=== PATIENT | female | born 1980 | race Caucasian/White ===

== ENCOUNTER 2023-04-24 19:37 | Outpatient (REF) | payer OTHER, SELFPAY ==
[2023-04-29 18:09] LABS: Age Gdln ACOG Testing Note (.); HPV Aptima Negative (Negative); IGP, Aptima HPV, rfx 16/18,45 Note (.)
== END 2023-04-24 19:38 | disposition home or self-care (01) ==
LOC: LAB 19:37
PROVIDERS: PCP Family Medicine; Visit Provider Physician Assistant
DX: Z01.419 Encounter for gynecological examination (general) (routine) without abnormal findings (principal)
CPT/HCPCS: 87624; G0145

== ENCOUNTER 2023-05-07 10:26 | Outpatient (OUT) | payer OTHER, SELFPAY ==
--- NOTE | 2023-05-07 10:29 | MM_ITS ---
Patient: KARINA GOODEN Exam Date: 05/07/2023 : 1980 Gender:F Ordering : TRAIVS Gan . Admission #: [id number] Family : DR Gene Narvaez . Order #: [id number] CLICK HERE TO VIEW EXAM RADIOLOGY REPORT PROCEDURE: MM TOMOSYNTHESIS SCREENING BI COMPARISON: None. INDICATIONS: Screening Calculator Name NCI Breast Cancer Risk Assessment Tool 5 Year Breast Cancer Risk 0.50% Lifetime Breast Cancer Risk 9.00% Personal Breast Cancer No Personal Ovarian Cancer No Treatments None Family Cancers None LOCATION: [facility] BREAST COMPOSITION: Extremely dense, which lowers the sensitivity of mammography. FINDINGS: DIAGNOSTIC CATEGORY 0--INCOMPLETE: NEED ADDITIONAL IMAGING EVALUATION. RIGHT BREAST: 2 cm asymmetry within the posterior upper-outer quadrant. 1.5 cm mass versus cyst within posterior lower-inner quadrant. Spot magnification views and ultrasound evaluation recommended. LEFT BREAST: No significant suspicious finding. RECOMMENDATIONS: ADDITIONAL MAMMOGRAPHIC VIEWS REQUIRED: RIGHT BREAST - RIGHT CRANIOCAUDAL SPOT MAGNIFICATION VIEW - RIGHT OBLIQUE SPOT MAGNIFICATION VIEW - ULTRASOUND: RIGHT BREAST PLEASE NOTE: A NORMAL MAMMOGRAM DOES NOT EXCLUDE THE POSSIBILITY OF BREAST CANCER. A CLINICALLY SUSPICIOUS PALPABLE LUMP SHOULD BE BIOPSIED. Dictated by: Ridge Watson M.D. on 05/08/2023 at 13:36 Approved by: Ridge Watson M.D. on 05/08/2023 at 13:42
== END 2023-05-07 10:27 | disposition home or self-care (01) ==
LOC: MAMMO 10:26
PROVIDERS: PCP Family Medicine; Visit Provider Physician Assistant
DX: Z12.31 Encounter for screening mammogram for malignant neoplasm of breast (principal); N64.89 Other specified disorders of breast
CPT/HCPCS: 77063; 77067

== ENCOUNTER 2023-05-24 13:00 | Outpatient (OUT) | payer OTHER, SELFPAY ==
--- NOTE | 2023-05-24 | MM_ITS ---
Patient Name: KARINA GOODEN MR#: [id number] : 1980 Exam Date: 05/24/2023 Ordering Doctor: TRAVIS Gan . RADIOLOGY REPORT PROCEDURE: MM TOMOSYNTHESIS DIAGNOSTIC RT, 05/24/2023, 13:05 US BREAST RT LIMITED, 05/24/2023, 13:36 COMPARISON: MM TOMOSYNTHESIS SCREENING BI, 05/07/2023. INDICATIONS: mass of right breast, unspecified quadrant N63.10 Calculator Name NCI Breast Cancer Risk Assessment Tool 5 Year Breast Cancer Risk 0.50% Lifetime Breast Cancer Risk 9.00% Personal Breast Cancer No Personal Ovarian Cancer No Treatments None Family Cancers None LOCATION: [facility] BREAST COMPOSITION: Extremely dense, which lowers the sensitivity of mammography. FINDINGS: DIAGNOSTIC CATEGORY 4--SUSPICIOUS FOR MALIGNANCY. FINDING DOES NOT EXHIBIT CLASSIC FINDINGS OF BREAST CANCER: RIGHT BREAST: Spot magnification views demonstrate what appears to be dense fibroglandular tissue within the posterior upper-outer quadrant and what appears to be a partially circumscribed mass or cyst within posterior lower-inner quadrant. Ultrasound evaluation demonstrates upper-outer quadrant dense fibroglandular tissue and a 9 x 7 x 2 mm complex cyst versus mixed cystic and solid mass at the 4 o'clock position 4.8 cm from the nipple. Ultrasound-guided biopsy of the 4 o'clock lesion is recommended. RECOMMENDATIONS: ULTRASOUND-GUIDED CORE BIOPSY: RIGHT BREAST PLEASE NOTE: A NORMAL MAMMOGRAM DOES NOT EXCLUDE THE POSSIBILITY OF BREAST CANCER. A CLINICALLY SUSPICIOUS PALPABLE LUMP SHOULD BE BIOPSIED. Dictated by: Ridge Watson M.D. on 05/24/2023 at 14:49 Approved by: Ridge Watson M.D. on 05/24/2023 at 14:54
== END 2023-05-24 13:01 | disposition home or self-care (01) ==
LOC: MAMMO 13:00
PROVIDERS: PCP Family Medicine; Visit Provider Physician Assistant
DX: N63.14 Unspecified lump in the right breast, lower inner quadrant (principal); N63.11 Unspecified lump in the right breast, upper outer quadrant
CPT/HCPCS: 76642; 77065; G0279

== ENCOUNTER 2023-06-04 10:54 | Day surgery (SDC) | payer OTHER, SELFPAY ==
--- NOTE | 2023-06-04 10:57 | US_ITS ---
[address] [address] Patient Name: KARINA GOODEN MRN: [id number] date: 1980 Sex: F Assigned Patient Location: US Current Patient Location: US Accession/Order Number: [id number] Exam Date: 06/04/2023 11:25 Report Date: 06/04/2023 12:06 At the request of: JEREMY VANG Procedure: US breast vac bx w/ clip RT EXAM: US breast vac bx w/ clip RT HISTORY: Right Breast Mass COMPARISON: Ultrasound breast right Limited 05/24/2023 TECHNIQUE: After obtaining informed consent, ultrasound-guided biopsy was performed in the usual sterile manner. The location of the biopsy was then marked as indicated below. FINDINGS: Specimen #, Location: 3 core samples; right breast 4:00 hypoechoic mass versus complex cyst. Biopsy Needle: 13 gauge vacuum core biopsy needle. Marker(s): A single metallic marker was placed in the appropriate targeted location. Medication: Buffered 1% Lidocaine with epinephrine administered locally. Complications: None. Pathology: Pending. US/US breast vac bx w/ clip RT IMPRESSION: 1. Uneventful ultrasound-guided breast biopsy. 2. Pathology results are pending. An addendum to this report will be provided after pathology results are available. Electronically authenticated by: STEPHANI WASSERMAN Date: 06/04/2023 12:06
[2023-06-04 11:05] VITALS: BP 128/85; PULSE 75; O2SAT 100
--- NOTE | 2023-06-04 11:22 | MM_ITS ---
Patient Name: KARINA GOODEN MR#: [id number] : 1980 Exam Date: 06/04/2023 Ordering Doctor: DR Mario Julio . This report includes an Addendum and supersedes previous reports for this exam. This report includes an Addendum and supersedes previous reports for this exam. RADIOLOGY REPORT PROCEDURE: MM POST BIOPSY RT COMPARISON: MM TOMOSYNTHESIS DIAGNOSTIC RT, 05/24/2023. MM TOMOSYNTHESIS SCREENING BI, 05/07/2023. INDICATIONS: Breast Mass BREAST COMPOSITION: Extremely dense, which lowers the sensitivity of mammography. FINDINGS: BIOPSY MARKER: A metallic marker has been placed in the targeted location within the posterior lower inner quadrant of the right breast. BREAST FINDINGS: Expected post biopsy findings. RECOMMENDATIONS: Dictated by: Ridge Watson M.D. on 06/04/2023 at 13:35 Approved by: Ridge Watson M.D. on 06/04/2023 at 13:49 ADDENDUM: Final pathologic diagnosis: Breast parenchyma with fibroadenomatoid change. Negative for malignancy FINDINGS: DIAGNOSTIC CATEGORY 2--BENIGN FINDING: RECOMMENDATIONS: ROUTINE MAMMOGRAM AND CLINICAL EVALUATION IN 12 MONTHS. June 11, 2023 findings were faxed to the office of Dr. Julio and verified. Dictated by: Ridge Watson M.D. on 06/12/2023 at 10:08 Approved by: Ridge Watson M.D. on 06/12/2023 at 10:12 ADDENDUM: FINDINGS: DIAGNOSTIC CATEGORY 3--PROBABLY BENIGN FINDING. THE FOLLOWING FINDING(S) HAS A HIGH PROBABILITY OF A BENIGN ETIOLOGY: RECOMMENDATIONS: SHORT TERM FOLLOW-UP DIAGNOSTIC MAMMOGRAM RIGHT BREAST IN 6 MONTHS. Dictated by: Ridge Watson M.D. on 06/18/2023 at 15:13 Approved by: Ridge Watson M.D. on 06/18/2023 at 15:14
--- NOTE | 2023-06-04 12:33 | SUR.PREOP ---
05/28/23 Pt instructed on procedure, date, time. Pt instructed to hold ASA BC powder for 5 days prior to the biopsy.
== END 2023-06-04 12:10 | disposition home or self-care (01) ==
LOC: US 10:54
PROVIDERS: Radiology Diagnostic Radiology; PCP Family Medicine; Visit Provider Obstetrics & Gynecology
DX: D24.1 Benign neoplasm of right breast (principal)
CPT/HCPCS: 19083; 77065; 88305

== ENCOUNTER 2024-07-27 11:39 | Outpatient (OUT) | payer OTHER, SELFPAY ==
[2024-07-27 11:59] LABS: Basophils Absolute Auto 0.1 10^3/uL (0.0-0.1); Basophils Percent Auto 0.6 % (0.2-2.0); Eosinophils Absolute Auto 0.2 10^3/uL (0.0-0.7); Eosinophils Percent Auto 2.6 % (0.9-7.0); Hematocrit 40.6 % (36.0-48.0); Hemoglobin 13.6 g/dL (12.0-16.0); Immature Granulocytes Abs Auto 0.02 10^3/uL (0.00-0.03); Immature Granulocytes Pct Auto 0.2 % (0.0-0.5); Mean Corpuscular HGB Conc 33.5 g/dL (29.9-35.2); Mean Corpuscular Hemoglobin 29.7 pg (26.7-34.0); Mean Corpuscular Volume 88.6 fL (81.0-99.0); Mean Platelet Volume 9.1 fL (9.5-13.5); Monocytes Absolute Auto 0.5 10^3/uL (0.3-0.8); Monocytes Percent Auto 5.8 % (1.7-12.0); Neutrophils Absolute Auto 4.8 10^3/uL (1.4-6.5); Neutrophils Percent Auto 55.8 % (43.0-75.0); Platelet Count 263 10^3/uL (150-450); Red Blood Count 4.58 10^6/uL (4.20-5.40); Red Cell Distribution Width 12.1 % (11.0-15.0); White Blood Count 8.6 10^3/uL (4.0-11.0)
--- OUTSIDE RECORDS SUMMARY | 2024-07-27 12:03 | XMS_ITS | CCD ---
Author Organization [facility] Care Team Providers Care Inspection Manager Name Role Phone Kenyatta Narvaez Primary Care Physician [phone] Modesta Stewart Unavailable Unavailable Fvaian DEJESUS Attending Unavailable Solange PROVIDERKenyatta Referring Unavailprabha trevino Unavailable Primary Care Provider UnavailRidge Royal MD Unavailable Beth Marsh RN Unavailable [phone] MISC, DR BUSBY Consulting Unavailable MISC, DR BUSBY Attending Unavailable SOLANGE, DR YOU Primary Care Unavailable MISC, DR BUSBY Admitting Unavailable SOLANGE, DR YOU Admitting Unavailable SOLANGE, DR YOU Primary Care Unavailable SOLANGE, DR YOU Consulting Unavailable SOLANGE, DR YOU Attending Unavailable Corinna Guevara MD Unavailable Ridge Hobbs MD Unavailable Salma DSOUZA, Beth Fleming Unavailable [phone] Corinna Guevara MD Unavailable PROVIDER, UNKNOWN Admitting Unavailable CORINNA GUEVARA Referring Unavailable PROVIDER, UNKNOWN Attending Unavailable PROVIDER, UNKNOWN Attending Unavailable PROVIDER, UNKNOWN Admitting Unavailable RIDGE HOBBS Referring Unavailable PROVIDER, UNKNOWN Admitting Unavailable PROVIDER, UNKNOWN Attending Unavailable PROVIDER, UNKNOWN Admitting Unavailable PROVIDER, UNKNOWN Attending Unavailable PROVIDER, UNKNOWN Admitting Unavailable PROVIDER, UNKNOWN Attending Unavailable PROVIDER, UNKNOWN Attending Unavailable PATIENT, SELF Referring Unavailable PROVIDER, UNKNOWN Admitting Unavailable Salma DSOUZA, Beth Fleming Unavailable Allergies Allergy Classification Reported Allergen(s) Allergy Type Date of Onset Reaction(s) Facility (1 source) No Known Medication Allergies; Translations: [No Known Medication Allergies] Propensity to adverse reactions (disorder) [facility] Repository Medications Current Medications Medication Drug Class(es) Dates Sig (Normalized) Sig (Original) ARIPiprazole 10 mg oral tablet (3 sources) Atypical Antipsychotic Start: 07-23-2022 take 0.5 tablet by mouth once daily, then take 1 tablet by mouth once daily ARIPiprazole (ABILIFY) 10 MG tablet TAKE 1/2 TABLET BY MOUTH DAILY FOR 1 WEEK THEN INCREASE TO 1 TABLET ONCE A DAY 0 07/23/2022 Active buprenorphine 8 mg sublingual tablet (1 source) Partial Opioid Agonist Start: 03-16-2020 take 1 tablet under the tongue twice daily buprenorphine 8 mg sublingual tablet 8 mg = 1 tab(s), SubLingual, BID, Refills(s) 0 Start Date: 03/16/20 Status: Ordered buprenorphine 8 mg / naloxone 2 mg sublingual film (20 sources) Partial Opioid Agonist, Opioid Antagonist Start: 03-27-2022 buprenorphine-nalo xone (SUBOXONE) 8-2 MG FILM SL film DISSOLVE 1 FILM IN MOUTH IN THE MORNING AND 1/2 FILM IN THE EVENING 0 03/27/2022 Active Nexplanon (1 source) Progestin Start: 03-16-2020 Nexplanon See Instructions, as directed, Refills(s) 0 Start Date: 03/16/20 Status: Ordered lamoTRIgine 100 mg oral tablet (15 sources) Mood Stabilizer, Anti-epileptic Agent Start: 05-26-2022 take 2 tablets by mouth once daily lamoTRIgine (LAMICTAL) 100 MG tablet Take 200 mg by mouth daily. 0 05/26/2022 Active Start: 04-03-2022 take 1 tablet by mica th once daily lamotrigine 100 mg Tab 100 mg = 1 tab(s), Oral, Daily, Refills(s) 0 Start Date: 04/03/22 Status: Ordered 1 ml medroxyPROGESTERone acetate 150 mg/ml injection (15 sources) Progestin Start: 06-14-2015 medroxyPROGESTERone (DEPO-PROVERA) 150 MG/ML injection mupirocin 0.02 mg/mg topical ointment (15 sources) RNA Synthetase Inhibitor Antibacterial Start: 03-21-2022 mupirocin (BACTROBAN) 2 % ointment APPLY TO ANTERIOR NARES TWICE A DAY 0 03/21/2022 Active OLANZapine 10 mg oral tablet (15 sources) Atypical Antipsychotic Start: 05-22-2022 take 1 tablet by mouth once daily OLANZapine (ZyPREXA) 10 MG tablet TAKE 1 TABLET BY MOUTH EVERY DAY FOR 30 DAYS 0 05/22/2022 Active Start: 04-03-2022 take 1 tablet by mica th once daily olanzapine 5 mg Tab 5 mg = 1 tab(s), Oral, Daily, Refills(s) 0 Start Date: 04/03/22 Status: Ordered QUEtiapine 100 mg oral tablet (15 sources) Atypical Antipsychotic Start: 05-16-2015 take 1 tablet by mouth at bedtime quetiapine (SEROQUEL) 100 MG tablet Take 100 mg by mouth at bedtime. 6 05/16/2015 Active Problems Active Problems Problem Classification Problem Date Documented Date Episodic/Chronic Adjustment disorders (15 sources) Adjustment disorder with mixed disturbance of emotions AND conduct; Translations: [Adjustment disorder with mixed disturbance of emotions and conduct] Onset: 04-18-2022 04-18-2022 Chronic Alcohol-related disorders (1 source) History of alcohol abuse 03-16-2020 Chronic Anxiety disorders (20 sources) Obsessive-compulsive disorder; Translations: [Panic attack] Onset: 04-18-2022 03-16-2020 Chronic Mood disorders (20 sources) Depressive disorder; Translations: [Bipolar affective disorder, currently manic, mild] Onset: 08-09-2021 03-16-2020 Chronic Other ear and sense organ disorders (15 sources) Hearing loss of right ear; Translations: [Unspecified hearing loss, right ear] Onset: 12-18-2016 04-18-2022 Chronic Other ear and sense organ disorders (3 sources) Conductive hearing loss, unilateral, right ear, with unrestricted hearing on the contralateral side; Translations: [Conductive hearing loss, unilateral] Onset: 04-18-2022 Chronic Residual codes; unclassified (1 source) Tobacco user; Translations: [Tobacco use] Onset: 04-03-2022 Episodic Residual codes; unclassified (1 source) Body mass index 20-24 - normal; Translations: [Body mass index (BMI) 22.0-22.9, adult] Episodic Screening and history of mental health and substance abuse codes (1 source) Tobacco use and exposure - finding 04-03-2022 Chronic Substance-related disorders (20 sources) Buprenorphine dependence; Translations: [History of drug abuse] Onset: 04-18-2022 04-05-2020 Chronic Unclassified (1 source) Body mass index 20-24 - normal 04-03-2022 Past or Other Problems Problem Classification Problem Date Documented Date Episodic/Chronic Abdominal hernia (17 sources) Umbilical hernia; Translations: [Umbilical hernia without obstruction or gangrene] Onset: 04-03-2022 Episodic Allergic reactions (16 sources) Eczema; Translations: [Dermatitis, unspecified] Onset: 04-18-2022 03-01-2022 Episodic Deficiency and other anemia (16 sources) Anemia; Translations: [Anemia, unspecified] Onset: 04-18-2022 03-16-2020 Episodic Diseases of mouth; excluding dental (20 sources) Acquired velopharyngeal insufficiency; Translations: [Other lesions of oral mucosa] Onset: 10-24-2015 Episodic Other aftercare (1 source) Other custodial (current) drug therapy; Translations: [OTH SNF CURRENT DRUG THERAPY] Onset: 08-12-2021 Episodic Other infections; including parasitic (16 sources) History of hepatitis C; Translations: [Personal history of other infectious and parasitic diseases] Onset: 04-18-2022 03-16-2020 Episodic Other skin disorders (16 sources) Acne vulgaris; Translations: [Acne vulgaris] Onset: 04-18-2022 03-01-2022 Episodic Other upper respiratory disease (15 sources) Acquired nasal septal defect; Translations: [Other specified disorders of nose and nasal sinuses] Onset: 10-24-2015 Episodic Other upper respiratory disease (15 sources) Deviated nasal septum; Translations: [Deviated nasal septum] Onset: 10-24-2015 10-24-2015 Episodic Other upper respiratory disease (15 sources) Hoarse; Translations: [Dysphonia] Onset: 09-22-2018 04-18-2022 Episodic Other upper respiratory disease (15 sources) Pain in throat; Translations: [Pain in throat] Onset: 09-22-2018 04-18-2022 Episodic Other upper respiratory disease (1 source) Other specified disorders of nose and nasal sinuses; Translations: [Other specified disorders of nose and nasal sinuses] Onset: 10-24-2015 Episodic Other upper respiratory disease (1 source) Disorder of nasal septum; Translations: [Other specified disorders of nose and nasal sinuses] Onset: 10-24-2015 10-24-2015 Episodic Other upper respiratory infections (15 sources) Sinusitis; Translations: [Acute sinusitis, unspecified] Onset: 12-18-2016 04-18-2022 Episodic Otitis media and related conditions (20 sources) Dysfunction of bilateral eustachian tubes; Translations: [Other specified disorders of Eustachian tube, bilateral] Onset: 11-15-2016 Episodic Residual codes; unclassified (16 sources) Insomnia; Translations: [Insomnia, unspecified] Onset: 04-18-2022 03-01-2022 Episodic Residual codes; unclassified (15 sources) Tobacco use and exposure - finding; Translations: [Tobacco use] Onset: 04-18-2022 04-18-2022 Episodic Results Test Name Value Interpretation Reference Range Facility Telephone Encounteron 2022 [facility] Authentication Interface Message Text SW met with patient and her boyfriend in [place] on 10/23/22. Patient lives with her mom and dad and her children (ages 18, 13, and 2 years) in [facility]. Patient works for [employer]. Patient receives food stamps and is on [employer]. Patient is on subutex custodial maintenance. Patient identifies her parents and boyfriend as sources of support. Patient denies any issues at this time. SW contact information provided and available as needed. SANDRINE Haque Pager [phone] Normal [facility]23-[address] [facility] Progress Noteson 10-23-2022 [facility] Authentication Interface Message Text [facility]: Duration: 15 mins Identification was verified by mother via confirming the patient's name and date of . History: Medical:h/o nasal drug use, septal perforation, tympanoplasty, hearing loss, VPI, Lefort-I advancement Speech and other interventions: none in history Patient Report: Pt novel to this clinic, referred by Dr. Hobbs for VPI. Pt reports that her speech and swallowing her normal as a child. She developed hypernasal speech after she started having difficulties with her nasal tissues following drug use and after her Lefort advancement. She reports her talks through her nose, and has nasal regurgitation with foods and liquids about 20% of meals. Speech observation: Pt unable to puff cheeks and move air side to side. Moderate-severe nasal emission with sustained /s, f/. Nasal emission noted on plosives. Hypernasality noted in all speech. Nasoendoscopy performed after application of topical anesthetic. Pt educated about procedure and consents. Septal perforation is visible and quite large. Thick secretions noted throughout. Velum appears too short and stiff. Pt does not get TONGUE AND GROOVE MACHINE OPERATOR closure with any speech, and gets significant bubbling with sustained /s/. TONGUE AND GROOVE MACHINE OPERATOR closure is incomplete, but there is some lateral wall constriction with attempted closure. Less mobility and volume of velum on left than right. Impressions: Pt presents with mild-moderate speech sound disorder characterized by nasal emission with plosives and continuants, and hypernasal vocal quality with all speech. She also presents with mild dysphagia due to nasal regurgitation. Plan: Per CFD team discussion, finish course of antibiotics, repeat CT sinus to investigate sinus disease and whether or not pt will tolerate pharyngeal flap from a breathing/sinus perspective. Follow up with ENT and audiology for PE tube placement. Recommend speech evaluation and brief course of treatment after pharyngeal flap surgery. SARA Carranza, TRAY, CCC-NURSE [employer] Speech-Language Pathologist Normal [employer] [facility] Authentication Interface Message Text Nicolette Salgado [id number] 1980 Chief Complaint: speech nasality History of Present Illness: A 42 year old White female is referred by Dr. Hobbs to the Plastic Surgery Clinic for evaluation of nasal speech, patient has history of remote drug use, patient also has septal perforation which using plug for it, she had Lefort-I advancement surgery PMH: Past Medical History: Diagnosis Date Hep C w/o coma, chronic (HCC) 2008 PSH: Past Surgical History: Procedure Laterality Date ear tubes 2016 ELBOW LEFT 2011 orthognathic surgery 1997 [place], [place] Lefort I advancement FH: No family history on file. Medications: Current Outpatient Medications Medication Sig Dispense Refill lamoTRIgine (LAMICTAL) 100 MG tablet Take 200 mg by mouth daily. OLANZapine (ZyPREXA) 10 MG tablet TAKE 1 TABLET BY MOUTH EVERY DAY FOR 30 DAYS buprenorphine-naloxone (SUBOXONE) 8-2 MG FILM SL film DISSOLVE 1 FILM IN MOUTH IN THE MORNING AND 1/2 FILM IN THE EVENING buprenorphine-naloxone (Suboxone) 8-2 MG FILM SL film one whole in AM, 1 half in PM mupirocin (BACTROBAN) 2 % ointment APPLY TO ANTERIOR NARES TWICE A DAY quetiapine (SEROQUEL) 100 MG tablet Take 100 mg by mouth at bedtime. 6 medroxyPROGESTERone (DEPO-PROVERA) 150 MG/ML injection 0 No current facility-administered medications for this visit. 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] Acne vulgaris [L70.0] Buprenorphine dependence (HCC) [F11.20] Depressive disorder [F32.A] Dysfunction of both eustachian tubes [H69.83] Eczema [L30.9] Hearing loss of right ear [H91.91] History of hepatitis C virus infection [Z86.19] Hoarseness [R49.0] Insomnia [G47.00] Panic attack [F41.0] Obsessive-compulsive disorder [F42.9] Perforation of right tympanic membrane [H72.91] Subacute sinusitis [J01.90] Throat pain [R07.0] Umbilical hernia [K42.9] Social History Socioeconomic History Marital status: Single Tobacco Use Smoking status: Every Day Packs/day: 0.50 Years: 15.00 Pack years: 7.50 Types: Cigarettes Smokeless tobacco: Current Substance and Sexual Activity Alcohol use: No Alcohol/week: 0.0 standard drinks Drug use: Yes Comment: opiods, heroin (last time 21 months) Sexual activity: Yes Partners: Male control/protection: Injection Review Of Systems Skin: negative Eyes: negative review of symptoms Ears/Nose/Throat: negative Respiratory: negative symptoms (no cough, hemoptysis, SOB, FRANCOIS, PND, wheezing) Cardiovascular: negative symptoms (No CP/Pressure/Tightness, palpitations, orthopnea, PND, SOB, FRANCOIS, edema, SANCHEZ or vision change) Gastrointestinal: negative symptoms (no abdominal pain, anorexia, n/v, indigestion, constipation, or diarrhea) Genitourinary: no urinary symptoms Musculoskeletal: negative (no arthritic pain, no joint swelling, no muscle weakness) Neurologic: negative symptoms (no syncope, seizures, weakness, gait problems, numbness, burning pain, tremors, or memory loss) Psychiatric: negative (no sleep disturbance, anxiety, memory loss, disorientation, inattention, feelings of depression) Hematologic/Lymphatic/ Immunologic: negative (no anemia, bleeding, bruising) Endocrine: negative review of symptoms PHYSICAL EXAMINATION: There were no vitals taken for this visit. General appearance: alert Skin: negative Nose: Septal perforation, Plug in place Throat: Postnasal drainage, short palate Assessment: VPI, short palate CT scan of sinuses sows chronic sinusitis, septal perforation Plan: needs sinusitis treatment, possible pharyngeal flap, Will do nasal endoscopy today This visit lasted for more than 30 minutes and greater than 50% of the visit was involved in the discussion of the options for treatment. Corinna Guevara MD Normal [employer] [facility] Authentication Interface Message Text HISTORY Name: Nicolette Salgado : 1980 Referred by: [facility] Presents today for: audiologic evaluation Patient reports: Perceived change in hearing sensitivity at the right ear Otorrhea at the left ear Tinnitus at the right ear Dizziness History of otologic surgery at both ears Patient denies: Otalgia History of noise exposure Patient reports she is followed by an outside ENT in [place]. She has a history of multiple sets of PE tubes since she was in her 20s. She has also reports a history of right tympanoplasty. AUDIOLOGIC PROCEDURES/RESULTS - Otoscopy: clear external auditory canal, bilaterally - Pure Tone Audiometry: mild to moderate conductive hearing loss at the right ear and normal hearing with the exception of a mild hearing loss at 250 and 4000 Hz at the left ear - Word Recognition Ability: excellent when assessed at an enhanced level at the right ear and a conversational level at the left ear - Tympanometry: immobile tympanic membrane with normal ear canal volume at the right ear and a large ear canal volume with a flat tracing at the left ear IMPRESSION The patient has a significant conductive hearing loss with abnormal middle ear function perhaps middle ear effusion at the right ear and essentially normal hearing with probable tympanic membrane perforation at the left ear. RECOMMENDATIONS The above was explained to the patient. The following was recommended: 1. Follow up with ENT 2. Return to Audiology as recommended by ENT, or if a change is perceived. Corrie Mederos M.A., [facility] Person Degree of hearing sensitivity dB range Porras: Normal: 0-25 dB Mild: 26-40 dB Moderate: 41-55 dB Moderately Severe: 56-70 dB Severe: 71-90 dB Profound: 91+ dB Word Recognition Porras: Excellent: 100 -90% Good: 88 -78% Fair: 66 -76% Poor: 54 -64% Very Poor: < 52% Normal [employer] [facility] Authentication Interface Message Text [facility] Nicolette Salgado, a 42 year old female, is seen today for evaluation of her craniofacial anomalies. She is referred by Dr. 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 Here today with her . Patient Active Problem List Diagnosis Date Noted H/O cocaine abuse ([facility]) 04/18/2022 Tobacco use 04/18/2022 Bipolar affective disorder, currently manic, mild ([facility]) 04/18/2022 Anemia 04/18/2022 Adjustment disorder with mixed disturbance of emotions and conduct 04/18/2022 Acne vulgaris 04/18/2022 Buprenorphine dependence ([facility]) 04/18/2022 Depressive disorder 04/18/2022 Eczema 04/18/2022 History of hepatitis C virus infection 04/18/2022 Insomnia 04/18/2022 Panic attack 04/18/2022 Obsessive-compulsive disorder 04/18/2022 Umbilical hernia 04/18/2022 Perforation of right tympanic membrane 02/08/2022 Hoarseness 09/22/2018 Throat pain 09/22/2018 Hearing loss of right ear 12/18/2016 Subacute sinusitis 12/18/2016 Dysfunction of both eustachian tubes 11/15/2016 Velopharyngeal insufficiency, acquired 10/24/2015 Deviated nasal septum 10/24/2015 Nasal septal defect 10/24/[address] Kenyatta Narvaez in [facility]. Nutrition consultation is not necessary. She has a large nasal septal defect with a button for closeure, but states she continues ot have recurrent sinus and ear issues. Current Outpatient Medications Medication Sig Dispense Refill lamoTRIgine (LAMICTAL) 100 MG tablet Take 200 mg by mouth daily. OLANZapine (ZyPREXA) 10 MG tablet TAKE 1 TABLET BY MOUTH EVERY DAY FOR 30 DAYS buprenorphine-naloxone (SUBOXONE) 8-2 MG FILM SL film DISSOLVE 1 FILM IN MOUTH IN THE MORNING AND 1/2 FILM IN THE EVENING buprenorphine-naloxone (Suboxone) 8-2 MG FILM SL film one whole in AM, 1 half in PM mupirocin (BACTROBAN) 2 % ointment APPLY TO ANTERIOR NARES TWICE A DAY quetiapine (SEROQUEL) 100 MG tablet Take 100 mg by mouth at bedtime. 6 medroxyPROGESTERone (DEPO-PROVERA) 150 MG/ML injection 0 No current facility-administered medications for this visit. Past Medical History: Diagnosis Date Hep C w/o coma, chronic (HCC) 2008 Review of patient's past surgical history indicates: orthognathic surgery (1997) [place] ELBOW LEFT (2011) ear tubes (2015) No family history on file. Review of Systems: The following systems were reviewed and the pertinent positive findings are noted: Constitutional, Eyes, ENT, Cardiovascular, Respiratory, GI, , Musculoskeletal, Neurologic, Skin, Endocrine, Hematologic/lymphatic, Allergic/Immunologic, and Psychiatric. (-) Heart or lung issues, states she is now in good health and she has been clean from drug use and active with her subutex program. Physical Examination: Constitutional: Active. No distress. Cooperative. Non-toxic. Well hydrated and well appearing. Alert, interactive at baseline. Head: Normocephalic, atraumatic. No masses, lesions, or tenderness. Eyes: PERRLA, EOMI, conjunctivae are normal. ENT: Deferred, seen by ENT. Voice quality is significantly affected by VPI Neck: Neck is supple. No cervical lymphadenopathy or thyromegaly. Cardiovascular: Normal rate. Regular rhythm. No murmurs. Well perfused. Pulmonary/Chest: No accessory muscle use or increased labor of breathing. No respiratory distress. Breath sounds are clear bilaterally. No stridor, wheezes, rales, or rhonchi. Abdominal: Soft and non-distended. Bowel sounds are normal. Musculoskeletal: Extremities without deformities and bones intact. Extremity movement at baseline. Skin: Skin is warm and dry. No bruising. No rashes. Neurological: Alert and interactive x3 at baseline Moves all extremities at baseline. Age appropriate behavior at baseline. Summary: ICD-10-CM 1. Velopharyngeal insufficiency, acquired K13.79 2. Conductive hearing loss of right ear, unspecified hearing status on contralateral side H90.11 3. Dysfunction of both eustachian tubes H69.83 Assessment, Findings and Recommendations: Team meeting held following clinic with Plastic Surgery, ENT, Speech and Language Pathology, Audiology, Neurodevelopmental Peds, Social Work, Genetics, Dentistry, Orthodontics and Care Coordination Plastics: CT scan of sinuses sows chronic sinusitis, septal perforation. Needs sinusitis treatment, possible pharyngeal flap, Nasal endoscopy was performed today. Palate is short. Will order a CAT scan and follow up with her. Speech and Language Therapy: She gets food and drink up her nose 20% of meals. Did the scope. Has some wall lateral constriction. The palate moved a little but was stiff. If a repair is done, then a referral for Telehealth Speech will be put in. Audiology: Patient reports she is followed by an outside ENT. She has a history of PE tubes since she was in her 20s. She has also reports a history of tympanoplasty. ENT: Has ENT in [place] that has followed her for multiple years (more content not included)... Normal [employer] Telephone Encounteron 2022 [facility] Authentication Interface Message Text Patient is unable to attend September [facility] d/t work. Rescheduled: Future Appointments (next 10) Provider Department Center 10/23/2022 1:00 PM Jen Saavedra MD [facility] ENT Craniofacial Disease [place] Directions given to ENT Clinic/ Beth BEDOYA RN CCCTM OB HR Distribution District Supervisor [phone] Office [phone] FAX [email or web address] Normal [employer] Telephone Encounteron 2022 [facility] Authentication Interface Message Text Called and spoke with patient. Agrees to schedule (tentatively ) in CFD 09/25/22 @ 2pm. Will check with work and request day off, if not will keep 09/20/[address] Guevara. Patient will call me back to confirm. I provided my direct contact information. Future Appointments (next 10) Provider Department Center 09/20/2022 11:00 AM (Arrive by 10:50 AM) Corinna Guevara MD [facility] Plastic Surgery [facility] 09/25/2022 2:00 PM Jen Saavedra MD [facility] ENT Craniofacial Disease [facility] Beth Salma BSN RN CCC OB HR Distribution District Supervisor [phone] Office [phone] FAX [email or web address] Normal The [facility] System CT SINUS W/O CONTRASTon 07-17 CT SINUS W/O CONTRAST EXAMINATION: CT SINUS W/O CONTRAST 08/13/2022 10:38 AM CLINICAL HISTORY: Nasal obstruction ASSOCIATED DIAGNOSIS: Velopharyngeal insufficiency, acquired ORDERING PROVIDER: CORINNA GUEVARA TECHNOLOGISTS NOTE: COMPARISON: None TECHNIQUE: Thin isotropic axial images were obtained through the paranasal sinuses without intravenous contrast. 2D coronal reconstructions were obtained from the axial data. FINDINGS: Metallic plate and screw fixation plates are visible at the anterior medial margin of both maxillary sinuses at the nasal processes of the maxilla. There are also fixation wires at the maxillary sinus anterior jacobsen on both sides more laterally. Numerous osseous dehiscence are visible including of the posterolateral maxillary sinus jacobsen. There is dehiscence of the right medial maxillary wall inferior to the inferior turbinate. (Series 4, Image 27) There is a 1 cm sharply demarcated opacified structure inferior to left maxillary sinus which may be a portion of the sinus, or a periapical lucency. There is nasal septal defect inferiorly and there appears to be a device/plug at the nasal septum anteriorly. There are osseous dehiscence is at the hard palate on both sides. A torus palatini is noted. The frontal sinuses, ethmoid air cells and sphenoid sinuses are clear. Multiple right mastoid air cells are opacified. Cavities are clear. Skull Base and Orbits: The cribriform plate, lateral lamella and lamina papyracea are intact. The olfactory recesses are symmetric, measuring 3-7 mm in depth, consistent with a Keros II classification. There is pneumatization above the anterior ethmoid notch on both sides. Normal appearance of the sphenoid septum. Aerated left optic strut The sphenoid sinus is pneumatized into the dorsum sella (post sellar). Status post orthognathic surgery. IMPRESSION: Osseous thinning or dehiscence of the hard pallate, and in multiple locations of the maxillary sinus jacobsen. No oroantral fistula is identified. Nasal septal defect. MACRO: None Normal [facility] CT Sinuses WO contrastOrdere d By: Favian Lassiter on 08-13-2022 CT DLP 73.72 (mGy.cm) [facility] Work Phone: CT Series Topogram,SINUS WO [facility] Work Phone: CTDI VOL 0.11 (mGy),3.44 (mGy) [facility] Work Phone: PHANTOM TYPE IEC Head Dosimetry Phantom,IEC Head Dosimetry Phantom [facility] Work Phone: [facility] [employer] [facility] Work Phone: CT Sinuses WO contraston EXAMINATION: CT SINU S W/O CONTRAST 08/13/2022 10:38 AM CLINICAL HISTORY: Nasal obstruction ASSOCIATED DIAGNOSIS: Velopharyngeal insufficiency, acquired ORDERING PROVIDER: CORINNA GUEVARA TECHNOLOGISTS NOTE: COMPARISON: None TECHNIQUE: Thin isotropic axial images were obtained through the paranasal sinuses without intravenous contrast. 2D coronal reconstructions were obtained from the axial data. FINDINGS: Metallic plate and screw fixation plates are visible at the anterior medial margin of both maxillary sinuses at the nasal processes of the maxilla. There are also fixation wires at the maxillary sinus anterior jacobsen on both sides more laterally. Numerous osseous dehiscence are visible including of the posterolateral maxillary sinus jacobsen. There is dehiscence of the right medial maxillary wall inferior to the inferior turbinate. (Series 4, Image 27) There is a 1 cm sharply demarcated opacified structure inferior to left maxillary sinus which may be a portion of the sinus, or a periapical lucency. There is nasal septal defect inferiorly and there appears to be a device/plug at the nasal septum anteriorly. There are osseous dehiscence is at the hard palate on both sides. A torus palatini is noted. The frontal sinuses, ethmoid air cells and sphenoid sinuses are clear. Multiple right mastoid air cells are opacified. Cavities are clear. Skull Base and Orbits: The cribriform plate, lateral lamella and lamina papyracea are intact. The olfactory recesses are symmetric, measuring 3-7 mm in depth, consistent with a Keros II classification. There is pneumatization above the anterior ethmoid notch on both sides. Normal appearance of the sphenoid septum. Aerated left optic strut The sphenoid sinus is pneumatized into the dorsum sella (post sellar). Status post orthognathic surgery. IMPRESSION: Osseous thinning or dehiscence of the hard pallate, and in multiple locations of the maxillary sinus jacobsen. No oroantral fistula is identified. Nasal septal defect. MACRO: None RADIOLOGY Favian Lassiter M D - 08/13/2022 EXAMINATION: CT SINUS W/O CONTRAST 08/13/2022 10:38 AM CLINICAL HISTORY: Nasal obstruction ASSOCIATED DIAGNOSIS: Velopharyngeal insufficiency, acquired ORDERING PROVIDER: CORINNA GUEVARA TECHNOLOGISTS NOTE: COMPARISON: None TECHNIQUE: Thin isotropic axial images were obtained through the paranasal sinuses without intravenous contrast. 2D coronal reconstructions were obtained from the axial data. FINDINGS: Metallic plate and screw fixation plates are visible at the anterior medial margin of both maxillary sinuses at the nasal processes of the maxilla. There are also fixation wires at the maxillary sinus anterior jacobsen on both sides more laterally. Numerous osseous dehiscence are visible including of the posterolateral maxillary sinus jacobsen. There is dehiscence of the right medial maxillary wall inferior to the inferior turbinate. (Series 4, Image 27) There is a 1 cm sharply demarcated opacified structure inferior to left maxillary sinus which may be a portion of the sinus, or a periapical lucency. There is nasal septal defect inferiorly and there appears to be a device/plug at the nasal septum anteriorly. There are osseous dehiscence is at the hard palate on both sides. A torus palatini is noted. The frontal sinuses, ethmoid air cells and sphenoid sinuses are clear. Multiple right mastoid air cells are opacified. Cavities are clear. Skull Base and Orbits: The cribriform plate, lateral lamella and lamina papyracea are intact. The olfactory recesses are symmetric, measuring 3-7 mm in depth, consistent with a Keros II classification. There is pneumatization above the anterior ethmoid notch on both sides. Normal appearance of the sphenoid septum. Aerated left optic strut The sphenoid sinus is pneumatized into the dorsum sella (post sellar). Status post orthognathic surgery. IMPRESSION: Osseous thinning or dehiscence of the hard pallate, and in multiple locations of the maxillary sinus jacobsen. No oroantral fistula is identified. Nasal septal defect. MACRO: None [facility] Radiology Study observation (narrative) [facility] HEPATITIS C VIRUS (HCV) TINY T PCR (NON-Carlos 07-24-2022 HCV log10 Normal [facility] Comment on above: Performed By: #### H CVQNNG #### [facility] [address] [place] [address] Dr. Ponce Dobbins Hepatitis C Quantitation Not detected Normal [facility] Comment on above: Performed By: #### H CVQNNG #### [facility] [address] [place] [address] Dr. Ponce Dobbins Test Information: Comment Normal [facility] Comment on above: Result Comment: The quantitative range of this assay is 15 IU/mL to 100 million IU/mL. Performed By: #### H CVQNNG #### [facility] [address] [place] [address] Dr. Ponce Dobbins INSULINon 07-24-2022 Insulin 3.1 uIU/mL Normal 2.6-24.9 [facility] Comment on above: Performed By: #### H CVQNNG #### [facility] [address] [place] [address] Dr. Ponce Dobbins CBC AUTO DIFFon 07-23-2022 BASO # 0.1 103/ul Normal 0.0-0.1 [facility] Comment on above: Performed By: #### C BC #### [facility] [address] [place] [address] Dr. Ponce Dobbins Basophils/100 WBC (Bld) 0.8 % Normal 0.2-2.0 [facility] Comment on above: Performed By: #### C BC #### [facility] [address] [place] [address] Dr. Ponce Dobbins EO # 0.2 103/ul Normal 0.0-0.7 [facility] Comment on above: Performed By: #### C BC #### [facility] [address] [place] [address] Dr. Ponce Dobbins Eosinophils/100 WBC (Bld) 2.1 % Normal 0.9-7.0 [facility] Comment on above: Performed By: #### C BC #### [facility] [address] [place] [address] Dr. Ponce Dobbins Erythrocyte distribution width (RBC) [Ratio] 12.4 % Normal 11.0-15.0 [facility] Comment on above: Performed By: #### C BC #### [facility] [address] [place] [address] Dr. Ponce Dobbins Hematocrit (Bld) [Volume fraction] 40.7 % Normal 36.0-48.0 [facility] Comment on above: Performed By: #### C BC #### [facility] [address] [place] [address] Dr. Ponce Dobbins Hemoglobin (Bld) [Mass/Vol] 14.2 g/dL Normal 12.0-16.0 [facility] Comment on above: Performed By: #### C BC #### [facility] [address] [place] [address] Dr. Ponce Dobbins IG # 0.01 10e3/ul Normal 0.00-0.03 [facility] Comment on above: Performed By: #### C BC #### [facility] [address] [place] [address] Dr. Ponce Dobbins IG % 0.1 % Normal 0.0-0.5 [facility] Comment on above: Performed By: #### C BC #### [facility] [address] [place] [address] Dr. Ponce Dobbins LYMPH # 2.2 103/ul Normal 1.2-3.8 [facility] Comment on above: Performed By: #### C BC #### [facility] [address] [place] [address] Dr. Ponce Dobbins Lymphocytes/100 WBC (Bld) 28.4 % Normal 20.5-60.0 [facility] Comment on above: Performed By: #### C BC #### [facility] [address] [place] [address] Dr. Ponce Dobbins MANUAL DIFF REQ NO Normal [facility] Comment on above: Performed By: #### C BC #### [facility] [address] [address] [address] Ponce Dobbins MCH (RBC) [Entitic mass] 28.9 pg Normal 26.7-34.0 [facility] Comment on above: Performed By: #### C BC #### [facility] [address] [address] [address] Ponce Dobbins MCHC (RBC) [Mass/Vol] 34.9 g/dL Normal 29.9-35.2 [facility] Comment on above: Performed By: #### C BC #### [facility] [address] [place] [address] Dr. Ponce Dobbins MCV (RBC) [Entitic vol] 82.9 fL Normal 81.0-99.0 [facility] Comment on above: Performed By: #### C BC #### [facility] [address] [place] [address] Dr. Ponce Dobbins MONO # 0.5 103/ul Normal 0.3-0.8 [facility] Comment on above: Performed By: #### C BC #### [facility] [address] [place] [address] Dr. Ponce Dobbins Monocytes/100 WBC (Bld) 6.3 % Normal 1.7-12.0 [facility] Comment on above: Performed By: #### C BC #### [facility] [address] [place] [address] Dr. Ponce Dobbins NEUT # 4.8 103/ul Normal 1.4-6.5 [facility] Comment on above: Performed By: #### C BC #### [facility] [address] [place] [address] Dr. Ponce Dobbins Neutrophils/100 WBC (Bld) 62.3 % Normal 43.0-75.0 [facility] Comment on above: Performed By: #### C BC #### [facility] [address] [place] [address] Dr. Ponce Dobbins Platelet mean volume (Bld) [Entitic vol] 8.7 fL Critically low 9.5-13.5 [facility] Comment on above: Performed By: #### C BC #### [facility] [address] [place] [address] Dr. Ponce Dobbins PLT 259 103/ul Normal 150-450 [facility] Comment on above: Performed By: #### C BC #### [facility] [address] [place] [address] Dr. Ponce Dobbins RBC 4.91 106/ul Normal 4.20-5.40 [facility] Comment on above: Performed By: #### C BC #### [facility] [address] [place] [address] Dr. Ponce Dobbins WBC 7.8 103/ul Normal 4.0-11.0 [facility] Comment on above: Performed By: #### C BC #### [facility] [address] [place] [address] Dr. Ponce Dobbins FREE THYROXINE INDEX T7on FTI 2.58 Normal 1.30-4.50 [facility] Comment on above: Performed By: #### C MP, T7, LIPID, TSH #### [facility] [address] [place] [address] Dr. Ponce Dobbins T3U 30.0 % Normal 30.0-39.0 [facility] Comment on above: Performed By: #### C MP, T7, LIPID, TSH #### [facility] [address] [place] [address] Dr. Ponce Dobbins T4 [Mass/Vol] 8.60 ug/dL Normal 4.80-13.90 [facility] Comment on above: Performed By: #### C MP, T7, LIPID, TSH #### [facility] [address] [place] [address] Dr. Ponce Dobbins GLYCOHEMOGLOBIN A1Con 2022 ADA RECOMMENDATION SEE BELOW Normal [facility] Comment on above: Result Comment: ADA RECOMMENDED LIMIT 4.0 - 6.0 ADA THERAPEUTIC TARGET < 7.0 ACTION SUGGESTED > 7.0 Performed By: #### H CVQNNG #### [facility] [address] [place], [place] [id number] Dr. Ponce Dobbins Glucose [Mass/Vol] 105 mg/dL Normal [facility] Comment on above: Performed By: #### H CVQNNG #### [facility] [address] [place] [address] Dr. Ponce Dobbins HbA1c (Bld) [Mass fraction] 5.3 % Normal 4.5-6.2 [facility] Comment on above: Performed By: #### H CVQNNG #### [facility] [address] [place] [address] Dr. Ponce Dobbins IRONon 07-23-2022 Iron [Mass/Vol] 91.0 ug/dL Normal 50.0-170.0 [facility] Comment on above: Performed By: #### I FRANCISCO #### [facility] [address] [place] [address] Dr. Ponce Dobbins LIPID PROFILEon 07-23-2022 CHOL-HDL RATIO NORM SEE BELOW Normal [facility] Comment on above: Result Comment: 3.3 - 4.4 LOW RISK 4.4 - 7.1 AVERAGE RISK 7.1 - 11.0 MODERATE RISK >11.0 HIGH RISK Performed By: #### C MP, T7, LIPID, TSH #### [facility] [address] [place] [address] Dr. Ponce Dobbins Cholesterol [Mass/Vol] 174 mg/dL Normal <=200 [facility] Comment on above: Performed By: #### C MP, T7, LIPID, TSH #### [facility] [address] [place] [address] Dr. Ponce Dobbins Cholesterol in HDL [Mass/Vol] 72 mg/dL Critically high 40-60 [facility] Comment on above: Performed By: #### C MP, T7, LIPID, TSH #### [facility] [address] [place] [address] Dr. Ponce Dobbins Cholesterol in LDL [Mass/Vol] 90.4 mg/dL Normal [facility] Comment on above: Performed By: #### C MP, T7, LIPID, TSH #### [facility] [address] [place] [address] Dr. Ponce Dobbins Cholesterol.total/C holesterol in HDL [Mass ratio] 2.4 {ratio} Normal [facility] Comment on above: Performed By: #### C MP, T7, LIPID, TSH #### [facility] [address] [address] [address] Ponce Dobbins HDL NORMAL > or = 60 mg/dl - LO W CARDIOVASCULAR RISK <40 mg/dl - HIGH CARDIOVASCULAR RISK Normal [facility] Comment on above: Performed By: #### C MP, T7, LIPID, TSH #### [facility] [address] [address] [address] Ponce Dobbins LDL CALC NORMAL SEE BELOW Normal [facility] Comment on above: Result Comment: <100 mg/dl OPTIMAL 100 - 129 mg/dl NEAR OR ABOVE OPTIMAL 130 - 159 mg/dl BORDERLINE HIGH 160 - 189 mg/dl HIGH >190 mg/dl VERY HIGH Performed By: #### C MP, T7, LIPID, TSH #### [facility] [address] [address] [address] Ponce Dobbins Triglyceride [Mass/Vol] 58 mg/dL Normal <=150 [facility] Comment on above: Performed By: #### C MP, T7, LIPID, TSH #### [facility] [address] [address] [address] Ponce Dobbins VLDL CALC 11.6 mg/dL Normal [facility] Comment on above: Performed By: #### C MP, T7, LIPID, TSH #### [facility] [address] [place] [address] Dr. Ponce Dobbins PROF 14(COMP METB)on 023 Albumin [Mass/Vol] 3.9 g/dL Normal 3.4-5.0 [facility] Comment on above: Performed By: #### C MP, T7, LIPID, TSH #### [facility] [address] [address] [address] Ponce Dobbins Albumin/Globulin [Mass ratio] 1.3 {ratio} Normal [facility] Comment on above: Performed By: #### C MP, T7, LIPID, TSH #### [facility] [address] [place], [place] [id number] Dr. Ponce Dobbins ALP [Catalytic activity/Vol] 50 U/L Normal 46-116 [facility] Comment on above: Performed By: #### C MP, T7, LIPID, TSH #### [facility] [address] [place] [address] Dr. Ponce Dobbins ALT [Catalytic activity/Vol] 12 U/L Critically low 14-59 [facility] Comment on above: Performed By: #### C MP, T7, LIPID, TSH #### [facility] [address] [place] [address] Dr. Ponce Dobbins Anion gap [Moles/Vol] 14.0 mmol/L Normal [facility] Comment on above: Performed By: #### C MP, T7, LIPID, TSH #### [facility] [address] [place] [address] Dr. Ponce Dobbins AST [Catalytic activity/Vol] 14 U/L Critically low 15-37 [facility] Comment on above: Performed By: #### C MP, T7, LIPID, TSH #### [facility] [address] [place] [address] Dr. Ponce Dobbins Bilirubin [Mass/Vol] 0.2 mg/dL Normal 0.2-1.0 [facility] Comment on above: Performed By: #### C MP, T7, LIPID, TSH #### [facility] [address] [place] [address] Dr. Ponce Dobbins Calcium [Mass/Vol] 9.0 mg/dL Normal 8.5-10.1 [facility] Comment on above: Performed By: #### C MP, T7, LIPID, TSH #### [facility] [address] [place] [address] Dr. Ponce Dobbins Chloride [Moles/Vol] 102 mmol/L Normal 98-107 [facility] Comment on above: Performed By: #### C MP, T7, LIPID, TSH #### [facility] [address] [place] [address] Dr. Ponce Dobbins CO2 [Moles/Vol] 26.2 mmol/L Normal 21.0-32.0 [facility] Comment on above: Performed By: #### C MP, T7, LIPID, TSH #### [facility] [address] [address] [address] Ponce Dobbins Creatinine [Mass/Vol] 0.80 mg/dL Normal 0.55-1.02 [facility] Comment on above: Performed By: #### C MP, T7, LIPID, TSH #### [facility] [address] [address] [address] Ponce Dobbins EGFR-AF COOK ISLANDER >60 Normal >=60 [facility] Comment on above: Performed By: #### C MP, T7, LIPID, TSH #### [facility] [address] [address] [address] Ponce Dobbins EGFR-NON AF [place] ISLANDER >60 Normal >=60 [facility] Comment on above: Performed By: #### C MP, T7, LIPID, TSH #### [facility] [address] [address] [address] Ponce Dobbins Globulin (S) [Mass/Vol] 3.0 g/dL Normal [facility] Comment on above: Performed By: #### C MP, T7, LIPID, TSH #### [facility] [address] [address] [address] Ponce Dobbins Glucose [Mass/Vol] 88 mg/dL Normal 74-106 [facility] Comment on above: Performed By: #### C MP, T7, LIPID, TSH #### [facility] [address] [address] [address] Ponce Dobbins Potassium [Moles/Vol] 4.2 mmol/L Normal 3.5-5.1 [facility] Comment on above: Performed By: #### C MP, T7, LIPID, TSH #### [facility] [address] [address] [address] Ponce Dobbins Protein [Mass/Vol] 6.9 g/dL Normal 6.4-8.2 [facility] Comment on above: Performed By: #### C MP, T7, LIPID, TSH #### [facility] [address] [place] [address] Dr. Ponce oDbbins Sodium [Moles/Vol] 138 mmol/L Normal 136-145 [facility] Comment on above: Performed By: #### C MP, T7, LIPID, TSH #### [facility] [address] [address] [address] Ponce Dobbins Urea nitrogen [Mass/Vol] 15.0 mg/dL Normal 7.0-18.0 [facility] Comment on above: Performed By: #### C MP, T7, LIPID, TSH #### [facility] [address] [address] [address] Ponce Dobbins Urea nitrogen/Creatinine [Mass ratio] 18.8 mg/mg Normal [facility] Comment on above: Performed By: #### C MP, T7, LIPID, TSH #### [facility] [address] [address] [address] Ponce Dobbins TSHon 07-23-2022 TSH 1.344 uIU/mL Normal 0.358-3.740 [facility] Comment on above: Performed By: #### C MP, T7, LIPID, TSH #### [facility] [address] [address] [address] Ponce Dobbins Telephone Encounteron 2022 [employer] Interface Message Text Patient referred to [facility] by Dr. Guevara. Attempted to reach patient, LM on VM with my direct number to schedule follow up. LV Dr. Guevara 06/15/22. Beth RICHEYN RN [facility] Dental Assistant Medical Assistant Comprehensive Care/CFD Normal The [facility] Telephone Encounteron 2021 [employer] Authentication Interface Message Text Patient referred to [facility] by Dr. Guevara. 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 Will attempt call again. Beth BEDOYA RN [facility] [phone] Office [phone] FAX Normal [facility] Progress Noteson 06-15-2022 [employer] Authentication Interface Message Text Nicolette Salgado [id number] 1980 [id number] Plastic Surgery New Patient Visit Chief Complaint: speech nasality History of Present Illness: A 42 year old White female is referred by Dr. Hobbs to the [facility] for evaluation of nasal speech, patient has history of remote drug use, patient also has septal perforation which using plug for it PMH: Past Medical History: Diagnosis Date Hep C w/o coma, chronic (HCC) 2008 PSH: Past Surgical History: Procedure Laterality Date ear tubes 2016 ELBOW LEFT 2012 orthognathic surgery 1997 [place], [place] FH: No family history on file. Medications: Current Outpatient Medications Medication Sig Dispense Refill lamoTRIgine (LAMICTAL) 100 MG tablet Take 200 mg by mouth daily. OLANZapine (ZyPREXA) 10 MG tablet TAKE 1 TABLET BY MOUTH EVERY DAY FOR 30 DAYS buprenorphine-naloxone (SUBOXONE) 8-2 MG FILM SL film DISSOLVE 1 FILM IN MOUTH IN THE MORNING AND 1/2 FILM IN THE EVENING buprenorphine-naloxone (Suboxone) 8-2 MG FILM SL film one whole in AM, 1 half in PM mupirocin (BACTROBAN) 2 % ointment APPLY TO ANTERIOR NARES TWICE A DAY quetiapine (SEROQUEL) 100 MG tablet Take 100 mg by mouth at bedtime. 6 medroxyPROGESTERone (DEPO-PROVERA) 150 MG/ML injection 0 No current facility-administered medications for this visit. 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] Acne vulgaris [L70.0] Buprenorphine dependence (HCC) [F11.20] Depressive disorder [F32.A] Dysfunction of both eustachian tubes [H69.83] Eczema [L30.9] Hearing loss of right ear [H91.91] History of hepatitis C virus infection [Z86.19] Hoarseness [R49.0] Insomnia [G47.00] Panic attack [F41.0] Obsessive-compulsive disorder [F42.9] Perforation of right tympanic membrane [H72.91] Subacute sinusitis [J01.90] Throat pain [R07.0] Umbilical hernia [K42.9] Social History Socioeconomic History Marital status: Single Tobacco Use Smoking status: Every Day Packs/day: 0.50 Years: 15.00 Pack years: 7.50 Types: Cigarettes Smokeless tobacco: Current Substance and Sexual Activity Alcohol use: No Alcohol/week: 0.0 standard drinks Drug use: Yes Comment: opiods, heroin (last time 21 months) Sexual activity: Yes Partners: Male control/protection: Injection Review Of Systems Skin: negative Eyes: negative review of symptoms Ears/Nose/Throat: negative Respiratory: negative symptoms (no cough, hemoptysis, SOB, FRANCOIS, PND, wheezing) Cardiovascular: negative symptoms (No CP/Pressure/Tightness, palpitations, orthopnea, PND, SOB, FRANCOIS, edema, SANCHEZ or vision change) Gastrointestinal: negative symptoms (no abdominal pain, anorexia, n/v, indigestion, constipation, or diarrhea) Genitourinary: no urinary symptoms Musculoskeletal: negative (no arthritic pain, no joint swelling, no muscle weakness) Neurologic: negative symptoms (no syncope, seizures, weakness, gait problems, numbness, burning pain, tremors, or memory loss) Psychiatric: negative (no sleep disturbance, anxiety, memory loss, disorientation, inattention, feelings of depression) Hematologic/Lymphatic/ Immunologic: negative (no anemia, bleeding, bruising) Endocrine: negative review of symptoms PHYSICAL EXAMINATION: BP 120/80 Pulse 89 Resp 16 Ht 5' 5 (1.651 m) Wt 137 lb (62.1 kg) LMP 06/15/2022 BMI 22.80 kg/m??? General appearance: alert Skin: negative Nose: Septal perforation, Plug in place Throat: Postnasal drainage, short palate Assessment: VPI Plan: CT scan of sinuses, follow-up in the [facility] for further discussion and possible nasal endoscopy Follow up: 1 month This visit lasted for more than 30 minutes and greater than 50% of the visit was involved in the discussion of the options for treatment. Corinna Guevara MD Normal [facility] Authentication Interface Message Text Pt identified by name and . Patient at risk for falls:No Falls Risk protocol implemented: No Present in room for physical exam portion of visit. Normal [facility] Patient Instructionson 04-18 [facility] Authentication Interface Message Text HOW TO MAKE SALINE (SALT) SOLUTION 1. Obtain a pint (16 ounce) jar with screw top lid and large sauce garcía with cover. 2. Place open jar and lid in sauce garcía. Cover with water. Bring to rolling boil and time for 10 minutes. 3. Pour off water carefully. Let jar and lid cool in garcía. Remove jar without touching the edge or inside. 4. Measure 1 pint (16 ounces) of water and add one half teaspoon of salt. Pickling/jarred/or Kosher salts are best as they are quite pure. Several pinches of bicarbonate can be added to buffer the solution if desired. 5. Bring to a gentle boil for ten minutes. Allow the solution to cool, and pour it into the boiled jar without touching the inside edge. Use as directed. Lavage (washing or cleaning) the nose and sinuses Your nose is lined by ciliated cells which propel mucus back to your throat all day long - approximately 1-2 liters of mucus are moved along per day under normal circumstances. At times though, the mucus may not flow sufficiently well and an aid is needed to wash (lavage) the nose. Salt water (saline) mimics the mucus blanket within the nose, so it is better than plain water. Saline can also be delivered into the nose by sniffing, using a baby's nose bulb-suction, or with a nasal rubber goods assembler (a Waterpik type device; about $80.00 for both the Waterpik and rubber goods assembler, SinuPulse Elite Advanced Nasal Sinus Irrigation System by [employer] on [employer]; powerful flow to knock away crusts and enter sinuses). Navage is a device that uses suction to pull saline from one side, around the back, and out the other nostril. It uses proprietary salt pods, and suction rather than propelling spray. The basic package is also about $80. It can be found on Cogni[employer], or: https://www.[employer]iz[employer] /wgap-jpsygbp-wbicd-ir rigation-p/bdl-b-nc.ht m A NasoNeb (nasal nebulizer, call to order, more of a vapor machine) can deliver voluminous mist to the nose to wet tissue; it may not knock out crusts, though some patients may prefer it if a spray or suction feels too powerful. I usually advise the strongest device, an rubber goods assembler or Navage, to knock away crusts in the nose that may develop from prior surgery, chronic infections, or autoimmune disorders. To make saline: boil 1 quart water, add 1 tablespoon of salt: pickling, jarred, or regular, and add 1 teaspoon of bicarbonate to reduce any chance of stinging. Let the solution cool before use! pharyngeal flap Normal [facility] Progress Noteson 04-18-2022 [facility] Authentication Interface Message Text Patient was identified by name and date of . ZAYRA Keating Patient in exam room, vital signs taken, ready for MD exam. Normal [facility] General Surgery Office/Clini c Noteon 04-03-2022 General Surgery Office/Clinic Note Chief Complaint re-evaluate umbilical hernia HPI Staff 41 year old female presents to re-evaluate umbilical hernia. Last evaluation 03/2020. History of Present Illness 41 yo female here for reevaluation of umbilical hernia; patient initially evaluated 2 years ago, had pain at that time, but did not wish repair; denies change in size or pain, no skin changes, no N/V; no bowel changes; no previous abdominal operations; no asa or NSAID use; smokes 1 ppd. Review of Systems PHQ Score Initial Depression Screen Score: 0 ROS - Provider Constitutional: no fever, no sweats, no weight loss. Eyes: no glasses, no blurred vision, no visual loss. ENMT: no dentures, no hoarseness, no swallowing difficulties, no hearing loss, no ear infection(s), no nose bleeds. Cardiovascular: normal blood pressure, no chest pain, regular heartbeat, no heart murmur. Respiratory: no shortness of breath, no cough, no asthma, no wheezing. Gastrointestinal: no nausea, no vomiting, no diarrhea, no constipation, no blood in stool, no change in bowel habits, no abdominal pain, no hepatitis. Genitourinary: no kidney stones, no urine infection, no dysuria. Musculoskeletal: no pain, no weakness. Skin: no changing moles, no rash, no skin lumps. Neurologic: no seizures, no epilepsy, no headache. Psychiatric: no emotional or psychiatric problem. Heme/Lymph: no bleeding problems, no anemia, no blood clots, no transfusions. Allergy/Immunologic: no swollen lymph nodes/glands, no IV drug abuse. Other: Additional ROS info: Except as noted in the above Review of Systems and in the History of Present Illness, all other systems have been reviewed and are negative or noncontributory. Physical Exam Vitals & Measurements HR: 64(Peripheral) RR: 16 BP: 104/60 HT: 66 in HT: 167.6 cm WT: 60 kg WT: 132 lb BMI: 21.36 HEENT: normal conjunctiva, sclera clear, no scleral icterus, EOM intact, PERRLA, oral mucosa moist without lesions. Neck: trachea midline, no mass, symmetric, no thyromegaly or nodules, no adenopathy Respiratory: lungs CTA, respirations non labored. Cardiovascular: regular rate and rhythm, no murmur, no pedal edema or varicosities. Gastrointestinal: soft, non distended, no tenderness, no masses, 1 cm incarcerated umbilical hernia, nontender, no skin changes; diastasis recti yes, no hepatosplenomegaly; normal bs Lymphatic: no cervical adenopathy, Musculoskeletal: normal gait, digits and nails without infection, nodes, cyanosis, clubbing. Skin: no rashes, no lesions, no ulcers, no subcutaneous nodules, induration. Psychiatric/Neuro: oriented to time, place, person, judgement normal, affect appropriate for age, insight intact, no focal deficits. Tests: review of old records completed, Assessment/Plan 1. Umbilical hernia (K42.9: Umbilical hernia without obstruction or gangrene) asymptomatic, incarcerated; recommend observation for now; high risk for repair due to tobacco use; if hernia enlarges or becomes symptomatic, will reevaluate; call with problems/questions. signs/symptoms of incarceration/strangul ation of hernia explained in detail, and patient understands that he should seek prompt medical evaluation if they were to occur. 2. Tobacco use (Z72.0: Tobacco use) We strongly recommend to quit tobacco use. Cigarette smoking harms nearly every organ of the body, causes many diseases, and reduces the health of smokers in general. Quitting smoking lowers your risk for smoking-related diseases and can add years to your life. We encourage you to visit www.smokefree.gov access to helpful resources including free telephone support. If you decide on prescription treatment to help you quit, your family doctor would be happy to provide these. Follow-up No qualifying data available Problem List/Past Medical History Ongoing Acne vulgaris Anemia BMI 21.0-21.9, adult Buprenorphine dependence Depression Eczema History of alcohol abuse History of hepatitis C History of heroin abuse Insomnia OCD (obsessive compulsive disorder) Opioid dependence Panic attack Tobacco use Umbilical hernia Historical No qualifying data Procedure/Surgical History History of elbow surgery, Myringotomy and insertion of T tube, Oral surgery. Medications buprenorphine 8 mg sublingual tablet, 8 mg= 1 tab(s), SubLingual, BID lamotrigine 100 mg Tab, 100 mg= 1 tab(s), Oral, Daily Nexplanon, See Instructions olanzapine 5 mg Tab, 5 mg= 1 tab(s), Oral, Daily Allergies No Known Allergies No Known Medication Allergies Social History Alcohol - Denies Alcohol Use, 03/16/2020 Substance Abuse - Denies Substance Abuse, 04/05/2020 Tobacco 10 or more cigarettes (1/2 pack or more)/day in last 30 days Tobacco Use:. Never Smokeless Tobacco Use:. Cigarettes, 1 per day. Started age 16.0 Years. Yes, 04/03/2022 Family History Hypertension: Mother. Hypothyroidism: Mother. Normal [facility] Comment on above: Result Comment: Elec tronically Signed By: OLEG DONG, Favian Palm\Date and Time Signed: 04/03/22 17:18 EDT Physician Referralon 022 Physician Referral [id number]:127 Normal [facility] 25-HYDROXY VIT D (D2+D3 FRAC ) LC/MS-MSon 08-17-2021 25-Hydroxy, Vitamin D 13 ng/mL Critically low [facility] Comment on above: Result Comment: Refe rence Range: All Ages: Target levels 30 - 100 Performed By: #### V ITDLC #### [facility] [address] [place] [address] Dr. Ponce Dobbins 25-Hydroxy, Vitamin D-2 <1.0 Normal [facility] Comment on above: Result Comment: This test was developed and its performance characteristics determined by [facility]. It has not been cleared or approved by the Food and Drug Administration. Performed By: #### V ITDLC #### [facility] [address] [place] [address] Dr. Ponce Dobbins 25-Hydroxy, Vitamin D-3 12 ng/mL Normal [facility] Comment on above: Result Comment: This test was developed and its performance characteristics determined by [facility]. It has not been cleared or approved by the Food and Drug Administration. Performed By: #### V ITDLC #### [facility] [address] [place] [address] Dr. Ponce Dobbins CBC AUTO DIFFon 08-09-2021 BASO # 0.1 103/ul Normal 0.0-0.1 [facility] Comment on above: Performed By: #### H CVQNNG #### [facility] [address] [place] [address] Dr. Ponce Dobbins Basophils/100 WBC (Bld) 0.6 % Normal 0.2-2.0 [facility] Comment on above: Performed By: #### H CVQNNG #### [facility] [address] [place] [address] Dr. Ponce Dobbins EO # 0.2 103/ul Normal 0.0-0.7 [facility] Comment on above: Performed By: #### H CVQNNG #### [facility] [address] [place] [address] Dr. Ponce Dobbins Eosinophils/100 WBC (Bld) 1.7 % Normal 0.9-7.0 [facility] Comment on above: Performed By: #### H CVQNNG #### [facility] [address] [place] [address] Dr. Ponce Dobbins Erythrocyte distribution width (RBC) [Ratio] 13.4 % Normal 11.0-15.0 [facility] Comment on above: Performed By: #### H CVQNNG #### [facility] [address] [place] [address] Dr. Ponce Dobbins Hematocrit (Bld) [Volume fraction] 39.5 % Normal 36.0-48.0 [facility] Comment on above: Performed By: #### H CVQNNG #### [facility] [address] [place] [address] Dr. Ponce Dobbins Hemoglobin (Bld) [Mass/Vol] 12.7 g/dL Normal 12.0-16.0 [facility] Comment on above: Performed By: #### H CVQNNG #### [facility] [address] [place] [address] Dr. Ponce Dobbins IG # 0.03 10e3/ul Normal 0.00-0.03 [facility] Comment on above: Performed By: #### H CVQNNG #### [facility] [address] [place] [address] Dr. Ponce Dobbins IG % 0.3 % Normal 0.0-0.5 [facility] Comment on above: Performed By: #### H CVQNNG #### [facility] [address] [place] [address] Dr. Ponce Dobbins LYMPH # 2.2 103/ul Normal 1.2-3.8 [facility] Comment on above: Performed By: #### H CVQNNG #### [facility] [address] [place] [address] Dr. Ponce Dobbins Lymphocytes/100 WBC (Bld) 25.0 % Normal 20.5-60.0 [facility] Comment on above: Performed By: #### H CVQNNG #### [facility] [address] [place] [address] Dr. Ponce Dobbins MANUAL DIFF REQ NO Normal [facility] Comment on above: Performed By: #### H CVQNNG #### [facility] [address] [place] [address] Dr. Ponce Dobbins MCH (RBC) [Entitic mass] 27.9 pg Normal 26.7-34.0 [facility] Comment on above: Performed By: #### H CVQNNG #### [facility] [address] [place] [address] Dr. Ponce Dobbins MCHC (RBC) [Mass/Vol] 32.2 g/dL Normal 29.9-35.2 [facility] Comment on above: Performed By: #### H CVQNNG #### [facility] [address] [place] [address] Dr. Ponce Dobbins MCV (RBC) [Entitic vol] 86.6 fL Normal 81.0-99.0 [facility] Comment on above: Performed By: #### H CVQNNG #### [facility] [address] [place] [address] Dr. Ponce Dobbins MONO # 0.5 103/ul Normal 0.3-0.8 [facility] Comment on above: Performed By: #### H CVQNNG #### [facility] [address] [place] [address] Dr. Ponce Dobbins Monocytes/100 WBC (Bld) 5.7 % Normal 1.7-12.0 [facility] Comment on above: Performed By: #### H CVQNNG #### [facility] [address] [place] [address] Dr. Ponce Dobbins NEUT # 5.7 103/ul Normal 1.4-6.5 [facility] Comment on above: Performed By: #### H CVQNNG #### [facility] [address] [place] [address] Dr. Ponce Dobbins Neutrophils/100 WBC (Bld) 66.7 % Normal 43.0-75.0 [facility] Comment on above: Performed By: #### H CVQNNG #### [facility] [address] [place] [address] Dr. Ponce Dobbins Platelet mean volume (Bld) [Entitic vol] 9.9 fL Normal 9.5-13.5 [facility] Comment on above: Performed By: #### H CVQNNG #### [facility] [address] [place] [address] Dr. Ponce Dobbins PLT 265 103/ul Normal 150-450 [facility] Comment on above: Performed By: #### H CVQNNG #### [facility] [address] [place] [address] Dr. Ponce Dobbins RBC 4.56 106/ul Normal 4.20-5.40 [facility] Comment on above: Performed By: #### H CVQNNG #### [facility] [address] [place] [address] Dr. Ponce Dobbins WBC 8.6 103/ul Normal 4.0-11.0 [facility] Comment on above: Performed By: #### H CVQNNG #### [facility] [address] [place] [address] Dr. Ponce Dobbins FREE T4on 08-09-2021 Free T4 [Mass/Vol] 1.01 ng/dL Normal 0.78-2.19 [facility] Comment on above: Performed By: #### V ITAD, FT4 #### [facility] [address] [place] [address] Dr. Ponce Dobbins PROF 14(COMP METB)on 022 Albumin [Mass/Vol] 3.6 g/dL Normal 3.5-5.0 [facility] Comment on above: Performed By: #### H CVQNNG #### [facility] [address] [place] [address] Dr. Ponce Dobbins Albumin/Globulin [Mass ratio] 1.2 {ratio} Normal [facility] Comment on above: Performed By: #### H CVQNNG #### [facility] [address] [address] [address] Ponce Dobbins ALP [Catalytic activity/Vol] 47 U/L Normal 38-126 [facility] Comment on above: Performed By: #### H CVQNNG #### [facility] [address] [address] [address] Ponce Dobbins ALT [Catalytic activity/Vol] 13 U/L Normal 9-52 [facility] Comment on above: Performed By: #### H CVQNNG #### [facility] [address] [address] [address] Ponce Dobbins Anion gap [Moles/Vol] 11.5 mmol/L Normal [facility] Comment on above: Performed By: #### H CVQNNG #### [facility] [address] [place] [address] Dr. Ponce Dobbins AST [Catalytic activity/Vol] 16 U/L Normal 14-36 [facility] Comment on above: Performed By: #### H CVQNNG #### [facility] [address] [place] [address] Dr. Ponce Dobbins Bilirubin [Mass/Vol] 0.2 mg/dL Normal 0.2-1.3 [facility] Comment on above: Performed By: #### H CVQNNG #### [facility] [address] [place] [address] Dr. Ponce Dobbins Calcium [Mass/Vol] 8.6 mg/dL Normal 8.4-10.2 [facility] Comment on above: Performed By: #### H CVQNNG #### [facility] [address] [place] [address] Dr. Ponce Dobbins Chloride [Moles/Vol] 103 mmol/L Normal 98-107 [facility] Comment on above: Performed By: #### H CVQNNG #### [facility] [address] [address] [address] Ponce Dobbins CO2 [Moles/Vol] 26.4 mmol/L Normal 22.0-30.0 [facility] Comment on above: Performed By: #### H CVQNNG #### [facility] [address] [address] [address] Ponce Dobbins Creatinine [Mass/Vol] 0.72 mg/dL Normal 0.52-1.04 [facility] Comment on above: Performed By: #### H CVQNNG #### [facility] [address] [address] [address] Ponce Dobbins EGFR-AF [place] >60 Normal >=60 [facility] Comment on above: Performed By: #### H CVQNNG #### [facility] [address] [address] [address] Ponce Dobbins EGFR-NON AF [place]ER >60 Normal >=60 [facility] Comment on above: Performed By: #### H CVQNNG #### [facility] [address] [address] [address] Ponce Dobbins Globulin (S) [Mass/Vol] 2.9 g/dL Normal [facility] Comment on above: Performed By: #### H CVQNNG #### [facility] [address] [address] [address] Ponce Dobbins Glucose [Mass/Vol] 76 mg/dL Normal 74-106 [facility] Comment on above: Performed By: #### H CVQNNG #### [facility] [address] [address] [address] Ponce Dobbins Potassium [Moles/Vol] 3.9 mmol/L Normal 3.4-5.0 [facility] Comment on above: Performed By: #### H CVQNNG #### [facility] [address] [address] [address] Ponce Dobbins Protein [Mass/Vol] 6.5 g/dL Normal 6.1-8.2 [facility] Comment on above: Performed By: #### H CVQNNG #### [facility] [address] [address] [address] Ponce Dobbins Sodium [Moles/Vol] 137 mmol/L Normal 137-145 [facility] Comment on above: Performed By: #### H CVQNNG #### [facility] [address] [place] [address] Dr. Ponce Dobbins Urea nitrogen [Mass/Vol] 15.0 mg/dL Normal 7.0-17.0 [facility] Comment on above: Performed By: #### H CVQNNG #### [facility] [address] [place] [address] Dr. Ponce Dobbins Urea nitrogen/Creatinine [Mass ratio] 20.8 mg/mg Normal [facility] Comment on above: Performed By: #### H CVQNNG #### [facility] [address] [place] [address] Dr. Ponce Dobbins TSHon 08-09-2021 TSH 1.380 uIU/mL Normal 0.470-4.680 [facility] Comment on above: Performed By: #### H CVQNNG #### [facility] [address] [place] [address] Dr. Ponce Dobbins TSH RANGE SEE BELOW Normal [facility] Comment on above: Result Comment: <0.3 4 UIU/ml HYPERTHYROID 0.34-5.60 UIU/ml EUTHYROID >5.60 UIU/ml HYPOTHYROID Performed By: #### H CVQNNG #### [facility] [address] [place] [address] Dr. Ponce Dobbins VITAMIN D 25 OHon 08-09-2021 VIT D 25-OH 13.0 ng/mL Normal [facility] Comment on above: Performed By: #### Katerine KATZ FTEfrain #### [facility] [address] [place] [address] Dr. Ponce Dobbins VIT D RANGES SEE BELOW Normal [facility] Comment on above: Result Comment: <20 ng/mL Vit D deficient 20 - <30 ng/mL Vit D insufficient 30 - 100 ng/mL Vit D sufficient >100 ng/mL Potential Toxicity Performed By: #### Katerine KATZ FT4 #### [facility] [address] [place] [address] Dr. Ponce Dobbins Vital Signs Date Time Vital Sign Value Performing Clinician Facility 06-15-2022 16:26-0500 Body height 165.1 cm Corinna Guevara MD Work Phone: [facility] 06-15-2022 16:26-0500 Body mass index (BMI) [Ratio] 22.8 kg/m2 Corinna Guevara MD Work Phone: [facility] 06-15-2022 16:26-0500 Body weight 62.14 kg Corinna Guevara MD Work Phone: [facility] 06-15-2022 16:26-0500 Diastolic blood pressure 80 mm[Hg] Corinna Guevara MD Work Phone: [facility] 06-15-2022 16:26-0500 Heart rate 89 /min Corinna Guevara MD Work Phone: [facility] 06-15-2022 16:26-0500 Respiratory rate 16 /min Corinna Guevara MD Work Phone: [facility] 06-15-2022 16:26-0500 Systolic blood pressure 120 mm[Hg] Corinna Guevara MD Work Phone: [facility] 04-18-2022 09:16-0400 Body temperature 98.4 [degF] Ridge Hobbs MD Work Phone: [facility] 04-03-2022 15:50-0400 Blood Pressure Location [facility] DEJES[facility] [place] 04-03-2022 15:50-0400 Diastolic blood pressure 60 mm[Hg] [facility] DEJESUS [facility] [place] 04-03-2022 15:50-0400 Heart rate 64 /min Favian DEJESUS [facility] [place] 04-03-2022 15:50-0400 Respiratory rate 16 /min Favian DEJESUS [facility] [place] 04-03-2022 15:50-0400 Systolic blood pressure 104 mm[Hg] Favian DEJESUS [facility] [place] Encounters Encounter Date Encounter Type Care Provider Facility Start: 04-05-2023 ambulatory Beth Fleming Eugene mcclelland RN Work Phone: [facility] Care Management/Patient Access Comment on above: Medical Record Revie w (CFD) Start: 12-11-2022 ambulatory Beth Fleming Eugene mcclelland RN Work Phone: [facility] Care Management/Patient Access Comment on above: Medical Record Revjaret w (CFD F/U) Start: 10-24-2022 ambulatory Seaney Ankit DELUCA [facility] Social Work Start: 10-24-2022 Coordination of care plan Jose cabrera [employer] [facility] Social Work Comment on above: Care Coordination (C FD) Start: 10-23-2022 End: 10-30-2022 ambulatory UNKNOWN PROVIDER Facility:[facility] Start: 10-23-2022 Office outpatient vi sit 10 minutes Corinna Guevara MD Work Phone: [facility] Plastic Surgery Start: 10-23-2022 Patient encounter procedure Christin Elizondo CCC-NURSE PRIVATE D[employer]Y [facility] Speech ENT Start: 10-23-2022 End: 10-23-2022 ambulatory Corrie Mederos MA [facility] Work Phone: [facility] [facility] Audiology Comment on above: 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 (Primary Dx); Middle ear effusion, right; Tympanic membrane perforation, left Start: 10-23-2022 End: 10-23-2022 Nutrition therapy Corrie Mederos MA CCC-A Work Phone: [facility] Audiology Start: 10-23-2022 End: 10-29-2022 Office outpatient new 30 minutes Jen Saavedra MD Work Phone: [facility] ENT Craniofacial Disease Comment on above: Velopharyngeal insuf ficiency, acquired (Primary Dx); Conductive hearing loss of right ear, unspecified hearing status on contralateral side; Dysfunction of both eustachian tubes Start: 09-18-2022 ambulatory Beth BooneGiovanna mcclelland RN Work Phone: [facility] Care Management/Patient Access Start: 09-18-2022 Patient encounter procedure Beth Marsh RN Work Phone: [facility] Care Management/Patient Access Comment on above: APPOINTMENT SCHEDULI NG (CFD) Start: 08-15-2022 ambulatory Beth mcclelland RN Work Phone: [facility] Care Management/Patient Access Start: 08-15-2022 Patient encounter procedure Beth Marsh RN Work Phone: [facility] Care Management/Patient Access Comment on above: APPOINTMENT SCHEDULI NG (CFD) Start: 08-13-2022 End: 08-14-2022 ambulatory UNKNOWN PROVIDER Facility:[facility] Start: 08-13-2022 End: 08-13-2022 Subsequent hospital visit by physician Ip/Op Ct Scan Main 2(Edge) [facility] Radiology CT Comment on above: Velopharyngeal insuf ficiency, acquired Start: 07-26-2022 Encounter for genera l adult medical examination without abnormal findings DR KENYATTA NARVAEZ [facility] Start: 07-23-2022 End: 07-24-[address] KENYATTA NARVAEZ Facility:[facility] Start: 07-23-2022 End: 07-24-2022 Encounter for general adult medical examination without abnormal findings DR KENYATTA NARVAEZ Facility:[facility] Start: 07-18-2022 ambulatory Beth mcclelland RN Work Phone: [facility] Care Management/Patient Access Start: 07-18-2022 Patient encounter procedure Beth Marsh RN Work Phone: [facility] Care Management/Patient Access Comment on above: APPOINTMENT SCHEDULI NG (CFD Referral) Start: 06-18-2022 ambulatory Beth mcclelland RN Work Phone: [facility] Care Management/Patient Access Start: 06-18-2022 Patient encounter procedure Beth Marsh RN Work Phone: [facility] Care Management/Patient Access Comment on above: New patient, to viral peralta relationship ([facility]D Clinic) Start: 06-15-2022 ambulatory UNKNOWN PROVIDER Facili ty:[facility] Start: 06-15-2022 End: 06-15-2022 Office consultation new/estab patient 40 min Corinna Guevara MD Work Phone: [facility] Plastic Surgery Comment on above: Velopharyngeal insuf ficiency, acquired (Primary Dx); Body mass index (BMI) 22.0-22.9, adult Start: 04-18-2022 End: 04-18-2022 ambulatory UNKNOWN PROVIDER Facility:[facility] Start: 04-18-2022 End: 04-18-2022 Office outpatient new 45 minutes Ridge Hobbs MD Work Phone: [facility] Otolaryngology (ENT) Comment on above: Velopharyngeal insuf ficiency, acquired (Primary Dx); Nasal septal defect; H/O cocaine abuse (HCC); Dysfunction of both eustachian tubes Start: 04-03-2022 End: 04-04-2022 ambulatory Favian DEJESUS Facility: [place] Start: 04-03-2022 End: 04-03-2022 Patient encounter procedure Favian DEJESUS General Surgery N[facility] [place] Start: 08-09-2021 End: 08-10-[address] DOCTOR CURRIE Facility: Procedures Date Procedure Procedure Detail Performing Clinician Start: 10-23-2022 Compre audiometry threshold eval sp recognij Corrie Mederos MA CCC-A Work Phone: Start: 10-23-2022 AUDIOGRAM Corrie Mederos MA CCC-A Work Phone: Start: 08-13-2022 Ct maxillofacial w/o contrast material Corinna Guevara MD Work Phone: Start: 06-21-2022 H/O: surgery S/P tympanoplasty Jen Saavedra MD Work Phone: Start: 04-18-2022 Nasal endoscopy diag nostic uni/bi spx Ridge Hobbs MD Work Phone: History of operative procedure on elbow Favian DEJESUS Comment on above: 2011 Myringotomy and inse rtion of T tube Favian DEJESUS Comment on above: multiple times Oral surgery (qualif ier value) Favian DEJESUS Comment on above: 1995 Plan of Treatment Date Care Activity Detail Author Start: 2032 Shingles (RZV) Vacci ne (1 of 2) Shingles (RZV) Vaccine (1 of 2) [facility] Start: 04-14-2023 Influenza vaccination Influenza Vacc ine (#1) [facility] Start: 10-23-2022 End: 10-23-2022 Patient encounter procedure 10/23/2022 Office Visit Pediatric Comp Care Jen Saavedra MD [address] [place] [phone] [facility] ENT Craniofacial Disease Start: 09-25-2022 End: 09-25-2022 Patient encounter procedure 09/25/2022 Office Visit Pediatric Comp Care Jen Saavedra MD [address] [place] [phone] [facility] ENT Craniofacial Disease Start: 09-20-2022 End: 09-20-2022 Patient encounter procedure 09/20/2022 Office Visit Plastic Surgery Corinna Guevara MD [address] [place] [phone] [facility] Plastic Surgery Start: 07-23-2022 End: 07-23-2022 Patient encounter procedure 07/23/2022 Appointment Radiology [facility] Radiology CT Start: 06-15-2022 End: 06-15-2023 CT Sinuses WO contrast CT SINUS W/O CONTRAST Imaging Routine Velopharyngeal insufficiency, acquired Expected: 06/15/2022, Expires: 06/15/2023 [facility] Work Phone: Comment on above: Expected: 06/15/2022 , Expires: 06/15/2023 Start: 11-01-2022 Screening for malignant neoplasm of breast [facility]amm[facility] Start: 04-14-2022 Influenza vaccination Influenza Vacc ine (#1) [facility] Start: 2009 HPV Vaccine (optiona l start 27-45 years) HPV Vaccine (optional start 27-45 years) [facility] Start: 2003 Screening for malignant neoplasm of cervix Pap Smear [facility] Start: 2000 Hepatitis C screening Hepatitis C An tibody [facility] Start: 2000 Tetanus + diphtheria + acellular pertussis vaccine (product) Tdap Booster [facility] Start: 1997 HIV screening HIV Test [facility] Start: 1988 Pneumococcal vaccination Pneumococcal Vaccine(s) (1 - PCV) [facility] Start: 1982 COVID-19 Vaccine (#1) COVID-19 Vacci ne (#1) [facility] Start: 1982 COVID-19 Vaccine ([id number] formulation) COVID-19 Vaccine ( formulation) [facility] Payers Date Payer Category Payer Medicaid DO NOT USE-DENTA L [place] DO NOT USE-DENTAL BUCKEYE [id number] 2015-Present [phone] [address] [place] [address] Medicaid HMO [id number] 2015 Unknown [employer] [place] [employer] [id number] 2015-Present [id number] 1982 Unknown [id number] 1982 Unknown [id number] 1982 Unknown [id number] 1982 Unknown [id number] 1982 Unknown [id number] 1982 Unknown [id number] 1982 Unknown [id number] 1982 Unknown [id number] 1982 Unknown [id number] 1959 Unknown [id number] Social History Date Type Detail Facility Start: 04-03-2022 Tobacco smoking status Heavy t obacco smoker (finding) [facility] [place] Tobacco smoking status Never [facility] [place] Sex Assigned At Female [facility] [place] Start: 04-18-2022 Tobacco smoking stat [facility] Smokes tobacco daily [facility] History of tobacco use [facility] Start: 04-18-2022 End: 10-25-2022 Cigarettes smoked current (pack per day) - Reported 0.5 [facility] Start: 04-18-2022 Tobacco use and exposure User of smokeless tobacco [facility] Start: 04-18-2022 End: 10-25-2022 Alcohol intake Current non-drinker of alcohol (finding) [facility] Start: 1980 Sex Assigned At Not on file [facility] Functional Status Date Assessment Result Facility 04-03-2022 Functional Status N/A [facility] Clinical Notes 04-18-2022 to 12-11-2022 Telephone Encounter - Beth Marsh RN - 12/11/2022 10:55 AM EDTTelephone Encounter - Beth Marsh RN - 12/11/2022 10:55 AM Christin Hinojosa [facility] [employer] - 10/23/2022 3:39 PM EDT Note Date & Type Note Facility 05-30-2023 Note Chart reviewed for C FD follow up. 10/23/22. Plan of Care: Needs facial CT and follow up with Dr. Guevara. Summary letter and recommendations created and scheduling information sent to patient via US mail. CFD f/u prn. Beth BEDOYA RN [facility] CFD Dental Assistant Medical Assistant [phone] Office [facility] [facility] 12-11-2022 Telephone encounter Note Chart reviewed for CFD follow up. 10/23/22. Plan of Care: Needs facial CT and follow up with Dr. Guevara. Summary letter and recommendations created and scheduling information sent to patient via US mail. CFD f/u prn. Beth BEDOYA RN [facility] CFD Dental Assistant Medical Assistant [phone] Office [employer] Work Phone: 12-11-2022 Miscellaneous Notes Chart reviewed for CFD follow up. 10/23/22. Plan of Care: Needs facial CT and follow up with Dr. Guevara. Summary letter and recommendations created and scheduling information sent to patient via US mail. CFD f/u prn. Beth BEDOYA RN [facility] CFD Dental Assistant Medical Assistant [phone] Office documented in this encounter [facility] 10-25-2022 Note OTOLARYNGOLOGY HEAD AND NECK SURGERY FOLLOW UP PATIENT NOTE CC: Re-evaluation, VPI, nasal issues, ear issues Accompanied by: Spouse HPI: Nicolette Salgado is a 42 year old female who presents to clinic today for evaluation in conjunction with our craniofacial team. Has previously seen Dr. Hobbs for concern for her nasal septal perforation and nasal issues. Has an ENT in [place] who manages many of her issues. Has been seen by Dr. 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 Have discussed possible pharyngeal flap. CT scan (July,) showed some sinus thickening in the maxillary sinuses bilaterally. She endorses frequent nasal drainage, however has significant nasal regurgitation as well. Nose is congested frequently, she does irrigations intermittently. Also has a history of eustachian tube dysfunction, had a recent tympanoplasty (May, per my review of records), and removal of a tube on the left. In the postoperative. Has developed a new effusion on the right side, has been on antibiotics for multiple weeks, had a course of steroids as well. Ear does not feel any better, does have some improvement in her nasal symptoms with this treatment. No other complaints at this time. ROS: A 10 point review of systems is negative other than above PMH: Past Medical History: Diagnosis Date Hep C w/o coma, chronic (HCC) 2008 PSH: Past Surgical History: Procedure Laterality Date ear tubes 2016 ELBOW LEFT 2012 orthognathic surgery 1997 [place], [place] Medications: Current Outpatient Medications on File Prior to Visit Medication Sig Dispense Refill lamoTRIgine (LAMICTAL) 100 MG tablet Take 200 mg by mouth daily. OLANZapine (ZyPREXA) 10 MG tablet TAKE 1 TABLET BY MOUTH EVERY DAY FOR 30 DAYS buprenorphine-naloxone (SUBOXONE) 8-2 MG FILM SL film DISSOLVE 1 FILM IN MOUTH IN THE MORNING AND 1/2 FILM IN THE EVENING buprenorphine-naloxone (Suboxone) 8-2 MG FILM SL film one whole in AM, 1 half in PM mupirocin (BACTROBAN) 2 % ointment APPLY TO ANTERIOR NARES TWICE A DAY quetiapine (SEROQUEL) 100 MG tablet Take 100 mg by mouth at bedtime. 6 medroxyPROGESTERone (DEPO-PROVERA) 150 MG/ML injection 0 No current facility-administered medications on file prior to visit. Allergies: No Known Allergies SH: Social History Tobacco Use Smoking status: Every Day Packs/day: 0.50 Years: 15.00 Pack years: 7.50 Types: Cigarettes Smokeless tobacco: Current Substance Use Topics Alcohol use: No Alcohol/week: 0.0 standard drinks Drug use: Yes Comment: opiods, heroin (last time 21 months) Physical Exam: Gen: WD/WN/female in NAD Resp: Breathing comfortably on room air, no stridor, symmetrical chest expansion Skin: W AND D, no lesions Neuro: AAOx3, facial motion symmetric Voice: clear and strong, hyper nasal. Eyes: Sclera anicteric. No evidence of nystagmus. Right Ear: Pinna and periauricular areas normal. EAC clear. TM postsurgical, dull, mildly retracted under the microscope. Left Ear: Pinna and periauricular areas normal. EAC clear. TM with anterior 30% perforation, clean and dry, healthy-appearing middle ear mucosa under the microscope. OC/PHARYNX: Mucous membranes moist, no lesions. Dentition normal. Tongue freely movable, no lesions. Very short in stiff palate, mucoid drainage in the posterior pharynx particularly in the right Neck: Supple, No masses or lymphadenopathy bilaterally. No thyromegaly. Parotid glands symmetrical, without tenderness or masses. Psych: Appropriate to circumstances, Mood: euthymic Audiogram performed 10/23/2022 personally reviewed: Right ear: Mild to moderate conductive hearing loss. Type B low volume tympanogram Left ear: Mild, likely conductive loss at 500 hertz, rising to normal hearing. Type B high volume tympanogram Audiogram and management were discussed with the payroll and benefits specialist. Imaging, personally reviewed by me: CT sinus 08/13/2022 reviewed. Mild thickening of the inferior portion of the maxillary sinuses bilaterally. Evidence LeFort advancement bilaterally. Large nasal septal perforation. Remainder of the sinuses are clear x6. Procedures: binocular microscopy Assessment and Plan: Nicolette Salgado is a 42 year old female who presents to ENT clinic today for re-evaluation. Discussion with Dr. Guevara, possible surgical management of her VPI, however he would like sinuses to be clear. She is been on a long course of antibiotics, and had some steroids, she feels her nose is somewhat better. There is a fair amount drainage in the nose, however with food debris on scope exam per speech. At this time, given all her treatment, I would recommend a repeat scan in a few weeks to re-evaluate the maxillary sinuses for any persistent inflammation. Dr. Guevara would like to have surgical management of her sinus disease prior to cons (more content not included)... [facility] 10-24-2022 Telephone encounter Note SW met with patient and her boyfriend in [facility] on 10/23/22. Patient lives with her mom and dad and her children (ages 18, 13, and 2 years) in [place] [facility]. Patient works for [employer]. Patient receives food stamps and is on [employer]. Patient is on subutex custodial maintenance. Patient identifies her parents and boyfriend as sources of support. Patient denies any issues at this time. VERONICA contact information provided and available as needed. SANDRINE Haque Pager [phone] [facility] 10-24-2022 Miscellaneous Notes SW met with patient and her boyfriend in [facility] on 10/23/22. Patient lives with her mom and dad and her children (ages 18, 13, and 2 years) in [place]. Patient works for [employer]. Patient receives food stamps and is on [employer]. Patient is on subutex custodial maintenance. Patient identifies her parents and boyfriend as sources of support. Patient denies any issues at this time. VERONICA contact information provided and available as needed. SANDRINE Haque Pager [phone] documented in this encounter [facility] 10-23-2022 History of Present illness Narrative Craniofacial Disorders Clinic: Duration: 15 mins Identification was verified by mother via confirming the patient's name and date of . History: Medical:h/o nasal drug use, septal perforation, tympanoplasty, hearing loss, VPI, Lefort-I advancement Speech and other interventions: none in history Patient Report: Pt novel to this clinic, referred by Dr. Hobbs for VPI. Pt reports that her speech and swallowing her normal as a child. She developed hypernasal speech after she started having difficulties with her nasal tissues following drug use and after her Lefort advancement. She reports her talks through her nose, and has nasal regurgitation with foods and liquids about 20% of meals. Speech observation: Pt unable to puff cheeks and move air side to side. Moderate-severe nasal emission with sustained /s, f/. Nasal emission noted on plosives. Hypernasality noted in all speech. Nasoendoscopy performed after application of topical anesthetic. Pt educated about procedure and consents. Septal perforation is visible and quite large. Thick secretions noted throughout. Velum appears too short and stiff. Pt does not get TONGUE AND GROOVE MACHINE OPERATOR closure with any speech, and gets significant bubbling with sustained /s/. TONGUE AND GROOVE MACHINE OPERATOR closure is incomplete, but there is some lateral wall constriction with attempted closure. Less mobility and volume of velum on left than right. Impressions: Pt presents with mild-moderate speech sound disorder characterized by nasal emission with plosives and continuants, and hypernasal vocal quality with all speech. She also presents with mild dysphagia due to nasal regurgitation. Plan: Per CFD team discussion, finish course of antibiotics, repeat CT sinus to investigate sinus disease and whether or not pt will tolerate pharyngeal flap from a breathing/sinus perspective. Follow up with ENT and audiology for PE tube placement. Recommend speech evaluation and brief course of treatment after pharyngeal flap surgery. SARA Carranza, MA, CCC-NURSE [employer] Speech-Language Pathologist documented in this encounter [facility] 10-23-2022 History of Present illness Narrative Nicolette Salgado [id number] 1980 Chief Complaint: speech nasality History of Present Illness: A 42 year old White female is referred by Dr. Hobbs to the Plastic Surgery Clinic for evaluation of nasal speech, patient has history of remote drug use, patient also has septal perforation which using plug for it, she had Lefort-I advancement surgery PMH: Past Medical History: Diagnosis Date Hep C w/o coma, chronic (HCC) 2008 PSH: Past Surgical History: Procedure Laterality Date ear tubes 2016 ELBOW LEFT 2012 orthognathic surgery 1997 [place], [place] Lefort I advancement FH: No family history on file. Medications: Current Outpatient Medications Medication Sig Dispense Refill lamoTRIgine (LAMICTAL) 100 MG tablet Take 200 mg by mouth daily. OLANZapine (ZyPREXA) 10 MG tablet TAKE 1 TABLET BY MOUTH EVERY DAY FOR 30 DAYS buprenorphine-naloxone (SUBOXONE) 8-2 MG FILM SL film DISSOLVE 1 FILM IN MOUTH IN THE MORNING AND 1/2 FILM IN THE EVENING buprenorphine-naloxone (Suboxone) 8-2 MG FILM SL film one whole in AM, 1 half in PM mupirocin (BACTROBAN) 2 % ointment APPLY TO ANTERIOR NARES TWICE A DAY quetiapine (SEROQUEL) 100 MG tablet Take 100 mg by mouth at bedtime. 6 medroxyPROGESTERone (DEPO-PROVERA) 150 MG/ML injection 0 No current facility-administered medications for this visit. 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] Acne vulgaris [L70.0] Buprenorphine dependence (HCC) [F11.20] Depressive disorder [F32.A] Dysfunction of both eustachian tubes [H69.83] Eczema [L30.9] Hearing loss of right ear [H91.91] History of hepatitis C virus infection [Z86.19] Hoarseness [R49.0] Insomnia [G47.00] Panic attack [F41.0] Obsessive-compulsive disorder [F42.9] Perforation of right tympanic membrane [H72.91] Subacute sinusitis [J01.90] Throat pain [R07.0] Umbilical hernia [K42.9] Social History Socioeconomic History Marital status: Single Tobacco Use Smoking status: Every Day Packs/day: 0.50 Years: 15.00 Pack years: 7.50 Types: Cigarettes Smokeless tobacco: Current Substance and Sexual Activity Alcohol use: No Alcohol/week: 0.0 standard drinks Drug use: Yes Comment: opiods, heroin (last time 21 months) Sexual activity: Yes Partners: Male control/protection: Injection Review Of Systems Skin: negative Eyes: negative review of symptoms Ears/Nose/Throat: negative Respiratory: negative symptoms (no cough, hemoptysis, SOB, FRANCOIS, PND, wheezing) Cardiovascular: negative symptoms (No CP/Pressure/Tightness, palpitations, orthopnea, PND, SOB, FRANCOIS, edema, SANCHEZ or vision change) Gastrointestinal: negative symptoms (no abdominal pain, anorexia, n/v, indigestion, constipation, or diarrhea) Genitourinary: no urinary symptoms Musculoskeletal: negative (no arthritic pain, no joint swelling, no muscle weakness) Neurologic: negative symptoms (no syncope, seizures, weakness, gait problems, numbness, burning pain, tremors, or memory loss) Psychiatric: negative (no sleep disturbance, anxiety, memory loss, disorientation, inattention, feelings of depression) Hematologic/Lymphatic/Immunologi c: negative (no anemia, bleeding, bruising) Endocrine: negative review of symptoms PHYSICAL EXAMINATION: There were no vitals taken for this visit. General appearance: alert Skin: negative Nose: Septal perforation, Plug in place Throat: Postnasal drainage, short palate Assessment: VPI, short palate CT scan of sinuses sows chronic sinusitis, septal perforation Plan: needs sinusitis treatment, possible pharyngeal flap, Will do nasal endoscopy today This visit lasted for more than 30 minutes and greater than 50% of the visit was involved in the discussion of the options for treatment. Corinna Guevara MD documented in this encounter [facility] 10-23-2022 History of Present illness Narrative HISTORY Name: Nicolette Salgado : 1980 Referred by: [facility] Presents today for: audiologic evaluation Patient reports: Perceived change in hearing sensitivity at the right ear Otorrhea at the left ear Tinnitus at the right ear Dizziness History of otologic surgery at both ears Patient denies: Otalgia History of noise exposure Patient reports she is followed by an outside ENT in [place]. She has a history of multiple sets of PE tubes since she was in her 20s. She has also reports a history of right tympanoplasty. AUDIOLOGIC PROCEDURES/RESULTS - Otoscopy: clear external auditory canal, bilaterally - Pure Tone Audiometry: mild to moderate conductive hearing loss at the right ear and normal hearing with the exception of a mild hearing loss at 250 and 4000 Hz at the left ear - Word Recognition Ability: excellent when assessed at an enhanced level at the right ear and a conversational level at the left ear - Tympanometry: immobile tympanic membrane with normal ear canal volume at the right ear and a large ear canal volume with a flat tracing at the left ear IMPRESSION The patient has a significant conductive hearing loss with abnormal middle ear function perhaps middle ear effusion at the right ear and essentially normal hearing with probable tympanic membrane perforation at the left ear. RECOMMENDATIONS The above was explained to the patient. The following was recommended: 1. Follow up with ENT 2. Return to Audiology as recommended by ENT, or if a change is perceived. Corrie Mederos M.A., CHRISTEL-A [employer] Person Degree of hearing sensitivity dB range [place]: Normal: 0-25 dB Mild: 26-40 dB Moderate: 41-55 dB Moderately Severe: 56-70 dB Severe: 71-90 dB Profound: 91+ dB Word Recognition [place]: Excellent: 100 -90% Good: 88 -78% Fair: 66 -76% Poor: 54 -64% Very Poor: < 52% documented in this encounter [facility] 10-23-2022 History of Present illness Narrative Images from the original note were not included. [facility] Nicolette Salgado, a 42 year old female, is seen today for evaluation of her craniofacial anomalies. She is referred by Dr. 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 Here today with her . Patient Active Problem List Diagnosis Date Noted H/O cocaine abuse ([facility]) 04/18/2022 Tobacco use 04/18/2022 Bipolar affective disorder, currently manic, mild ([facility]) 04/18/2022 Anemia 04/18/2022 Adjustment disorder with mixed disturbance of emotions and conduct 04/18/2022 Acne vulgaris 04/18/2022 Buprenorphine dependence ([facility]) 04/18/2022 Depressive disorder 04/18/2022 Eczema 04/18/2022 History of hepatitis C virus infection 04/18/2022 Insomnia 04/18/2022 Panic attack 04/18/2022 Obsessive-compulsive disorder 04/18/2022 Umbilical hernia 04/18/2022 Perforation of right tympanic membrane 02/08/2022 Hoarseness 09/22/2018 Throat pain 09/22/2018 Hearing loss of right ear 12/18/2016 Subacute sinusitis 12/18/2016 Dysfunction of both eustachian tubes 11/15/2016 Velopharyngeal insufficiency, acquired 10/24/2015 Deviated nasal septum 10/24/2015 Nasal septal defect 10/24/[address] Kenyatta Narvaez in [facility]. Nutrition consultation is not necessary. She has a large nasal septal defect with a button for closeure, but states she continues ot have recurrent sinus and ear issues. Current Outpatient Medications Medication Sig Dispense Refill lamoTRIgine (LAMICTAL) 100 MG tablet Take 200 mg by mouth daily. OLANZapine (ZyPREXA) 10 MG tablet TAKE 1 TABLET BY MOUTH EVERY DAY FOR 30 DAYS buprenorphine-naloxone (SUBOXONE) 8-2 MG FILM SL film DISSOLVE 1 FILM IN MOUTH IN THE MORNING AND 1/2 FILM IN THE EVENING buprenorphine-naloxone (Suboxone) 8-2 MG FILM SL film one whole in AM, 1 half in PM mupirocin (BACTROBAN) 2 % ointment APPLY TO ANTERIOR NARES TWICE A DAY quetiapine (SEROQUEL) 100 MG tablet Take 100 mg by mouth at bedtime. 6 medroxyPROGESTERone (DEPO-PROVERA) 150 MG/ML injection 0 No current facility-administered medications for this visit. Past Medical History: Diagnosis Date Hep C w/o coma, chronic (HCC) 2008 Review of patient's past surgical history indicates: orthognathic surgery (1997) [place] ELBOW LEFT (2011) ear tubes (2015) No family history on file. Review of Systems: The following systems were reviewed and the pertinent positive findings are noted: Constitutional, Eyes, ENT, Cardiovascular, Respiratory, GI, , Musculoskeletal, Neurologic, Skin, Endocrine, Hematologic/lymphatic, Allergic/Immunologic, and Psychiatric. (-) Heart or lung issues, states she is now in good health and she has been clean from drug use and active with her subutex program. Physical Examination: Constitutional: Active. No distress. Cooperative. Non-toxic. Well hydrated and well appearing. Alert, interactive at baseline. Head: Normocephalic, atraumatic. No masses, lesions, or tenderness. Eyes: PERRLA, EOMI, conjunctivae are normal. ENT: Deferred, seen by ENT. Voice quality is significantly affected by VPI Neck: Neck is supple. No cervical lymphadenopathy or thyromegaly. Cardiovascular: Normal rate. Regular rhythm. No murmurs. Well perfused. Pulmonary/Chest: No accessory muscle use or increased labor of breathing. No respiratory distress. Breath sounds are clear bilaterally. No stridor, wheezes, rales, or rhonchi. Abdominal: Soft and non-distended. Bowel sounds are normal. Musculoskeletal: Extremities without deformities and bones intact. Extremity movement at baseline. Skin: Skin is warm and dry. No bruising. No rashes. Neurological: Alert and interactive x3 at baseline Moves all extremities at baseline. Age appropriate behavior at baseline. Summary: ICD-10-CM 1. Velopharyngeal insufficiency, acquired K13.79 2. Conductive hearing loss of right ear, unspecified hearing status on contralateral side H90.11 3. Dysfunction of both eustachian tubes H69.83 Assessment, Findings and Recommendations: Team meeting held following clinic with Plastic Surgery, ENT, Speech and Language Pathology, Audiology, Neurodevelopmental Peds, Social Work, Genetics, Dentistry, Orthodontics and Care Coordination Plastics: CT scan of sinuses sows chronic sinusitis, septal perforation. Needs sinusitis treatment, possible pharyngeal flap, Nasal endoscopy was performed today. Palate is short. Will order a CAT scan and follow up with her. Speech and Language Therapy: She gets food and drink up her nose 20% of meals. Did the scope. Has some wall lateral constriction. The palate moved a little but was stiff. If a repair is done, then a referral for Telehealth Speech will be put in. Audiology: Patient reports she is followed by an outside ENT. She has a history of PE tubes since she was in her 20s. She has also reports a history of tympanoplasty. ENT: Has ENT in [place] that has followed her for multiple years. Her sinuses have some inflammation. She has been taking steroids and antibiotics. Will do more imaging before she gets her surgery for her throat. She will need a tube but has an appointment with her ENT next week. Genetics: Did not see Pt today Neurodevelopmental Peds: PCP is Dr. Narvaez. She has no issues with her heart or lungs, no prior issues with anesthesia, beyond age for [facility]. Social Work: N/A Dentistry and Orthodontics: She has a home dentist in [facility]. ----- SCRIBE ATTESTATION ---- 10/23/2022, 10:20 AM. This note is prepared by Rocky Rangel acting as Scribe for Jen Saavedra MD The scribe's documentation has been prepared under my direction and personally reviewed by me in its entirety. I confirm that the note above accurately reflects all work, treatment, procedures, and medical decision making performed by me, Jen Saavedra MD . Rocky Saavedra MD, FAAP Automatic Coin Machine Mechanic of Pediatrics, [facility] phone: FAX Medicaid Legacy Number: [id number] UPIN: [id number] documented in this encounter [facility] 09-18-2022 Telephone encounter Note Patient is unable to attend September [facility] d/t work. Rescheduled: Future Appointments (next 10) Provider Department Center 10/23/2022 1:00 PM Jen Saavedra MD [facility] ENT Craniofacial Disease [facility] Directions given to ENT Clinic/ Beth Marsh BSN RN CCC OB HR Distribution District Supervisor [phone] Office [phone] FAX [email or web address] [facility] Work Phone: 09-18-2022 Miscellaneous Notes Patient is unable to attend September CFD d/t work. Rescheduled: Future Appointments (next 10) Provider Department Center 10/23/2022 1:00 PM Jen Saavedra MD [facility] ENT Craniofacial Disease [facility] Directions given to ENT Clinic/ eBth BEDOYA RN [facility] OB HR Distribution District Supervisor [phone] Office [phone] FAX [email or web address] documented in this encounter [facility] 08-15-2022 Telephone encounter Note Called and spoke with patient. Agrees to schedule (tentatively ) in D 09/25/22 @ 2pm. Will check with work and request day off, if not will keep 09/20/[address] Guevara. Patient will call me back to confirm. I provided my direct contact information. Future Appointments (next 10) Provider Department Center 09/20/2022 11:00 AM (Arrive by 10:50 AM) Corinna Guevara MD [facility] Plastic Surgery [facility] 09/25/2022 2:00 PM Jen Saavedra MD [facility] ENT Craniofacial Disease [facility] Beth BEDOYA RN [facility] OB HR Distribution District Supervisor [phone] Office [phone] FAX [email or web address] [facility] Work Phone: 08-15-2022 Miscellaneous Notes Called and spoke with patient. Agrees to schedule (tentatively ) in CFD 09/25/22 @ 2pm. Will check with work and request day off, if not will keep 09/20/[address] Guevara. Patient will call me back to confirm. I provided my direct contact information. Future Appointments (next 10) Provider Department Center 09/20/2022 11:00 AM (Arrive by 10:50 AM) Corinna Guevara MD [facility] Plastic Surgery [facility] 09/25/2022 2:00 PM Jen Saavedra MD [facility] ENT Craniofacial Disease [facility] Beth BEDOYA RN [facility] OB HR Distribution District Supervisor [phone] Office [phone] FAX [email or web address] documented in this encounter [facility] 07-18-2022 Telephone encounter Note Patient referred to [facility] by Dr. Guevara. Attempted to reach patient, KIM on VM with my direct number to schedule follow up. LV Dr. Guevara 06/15/22. Beth BEDOYA RN [facility] Dental Assistant Medical Assistant Comprehensive Care/D [facility] Work Phone: 07-18-2022 Miscellaneous Notes Patient referred to D by Dr. Guevara. Attempted to reach patient, KIM on VM with my direct number to schedule follow up. LV Dr. Guevara 06/15/22. Beth BEDOYA RN [facility] Dental Assistant Medical Assistant Comprehensive Care/D documented in this encounter [facility] 06-18-2022 Telephone encounter Note Patient referred to [facility] by Dr. Guevara. 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 Will attempt call again. Beth BEDOYA RN [facility] [phone] Office [phone] FAX [facility] Work Phone: 06-18-2022 Miscellaneous Notes Patient referred to [facility] by Dr. Guevara. 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 Will attempt call again. Beth BEDOYA RN [facility] [phone] Office [phone] FAX documented in this encounter [facility] 06-16-2022 Evaluation note Diagnosis Velopharyngeal insufficiency, acquired- Primary Other and unspecified diseases of the oral soft tissues Body mass index (BMI) 22.0-22.9, adult documented in this encounter [id number] History of Present illness Narrative* Corinna Guevara MD - 06/15/2022 5:11 PM EST Nicolette Salgado [id number] 1980 [id number] Plastic Surgery New Patient Visit Chief Complaint: speech nasality History of Present Illness: A 42 year old White female is referred by Dr. Hobbs to the Plastic Surgery Clinic for evaluation of nasal speech, patient has history of remote drug use, patient also hasseptal perforation which using plug for it PMH: Past Medical History: Diagnosis Date Hep C w/o coma, chronic (HCC) 2008 PSH: Past Surgical History: Procedure Laterality Date ear tubes 2016 ELBOW LEFT 2011 orthognathic surgery 1997 [place], [place] FH: No family history on file. Medications: Current Outpatient Medications Medication Sig Dispense Refill lamoTRIgine (LAMICTAL) 100 MG tablet Take 200 mg by mouth daily. OLANZapine (ZyPREXA) 10 MG tablet TAKE 1 TABLET BY MOUTH EVERY DAY FOR 30 DAYS buprenorphine-naloxone (SUBOXONE) 8-2 MG FILM SL film DISSOLVE 1 FILM IN MOUTH IN THE MORNING AND 1/2 FILM IN THE EVENING buprenorphine-naloxone (Suboxone) 8-2 MG FILM SL film one whole in AM, 1 half in PM mupirocin (BACTROBAN) 2 % ointment APPLY TO ANTERIOR NARES TWICE A DAY quetiapine (SEROQUEL) 100 MG tablet Take 100 mg by mouth at bedtime. 6 medroxyPROGESTERone (DEPO-PROVERA) 150 MG/ML injection 0 No current facility-administered medications for this visit. 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] Acne vulgaris [L70.0] Buprenorphine dependence (HCC) [F11.20] Depressive disorder [F32.A] Dysfunction of both eustachian tubes [H69.83] Eczema [L30.9] Hearing loss of right ear [H91.91] History of hepatitis C virus infection [Z86.19] Hoarseness [R49.0] Insomnia [G47.00] Panic attack [F41.0] Obsessive-compulsive disorder [F42.9] Perforation of right tympanic membrane [H72.91] Subacute sinusitis [J01.90] Throat pain [R07.0] Umbilical hernia [K42.9] Social History Socioeconomic History Marital status: Single Tobacco Use Smoking status: Every Day Packs/day: 0.50 Years: 15.00 Pack years: 7.50 Types: Cigarettes Smokeless tobacco: Current Substance and Sexual Activity Alcohol use: No Alcohol/week: 0.0 standard drinks Drug use: Yes Comment: opiods, heroin (last time 21 months) Sexual activity: Yes Partners: Male control/protection: Injection Review Of Systems Skin: negative Eyes: negative review of symptoms Ears/Nose/Throat: negative Respiratory: negative symptoms (no cough, hemoptysis, SOB, FRANCOIS, PND, wheezing) Cardiovascular: negative symptoms (No CP/Pressure/Tightness, palpitations, orthopnea, PND, SOB, FRANCOIS, edema, SANCHEZ or vision change) Gastrointestinal: negative symptoms (no abdominal pain, anorexia, n/v, indigestion, constipation, or diarrhea) Genitourinary: no urinary symptoms Musculoskeletal: negative (no arthritic pain, no joint swelling, no muscle weakness) Neurologic: negative symptoms (no syncope, seizures, weakness, gait problems, numbness, burning pain, tremors, or memory loss) Psychiatric: negative (no sleep disturbance, anxiety, memory loss, disorientation, inattention, feelings of depression) Hematologic/Lymphatic/Immunologic: negative (no anemia, bleeding, bruising) Endocrine: negative review of symptoms PHYSICAL EXAMINATION: BP 120/80 Pulse 89 Resp 16 Ht 5' 5 (1.651 m) Wt 137 lb (62.1 kg) LMP 06/15/2022 BMI 22.80 kg/m General appearance: alert Skin: negative Nose: Septal perforation, Plug in place Throat: Postnasal drainage, short palate Assessment: VPI Plan: CT scan of sinuses, follow-up in the Craniofacial Clinic for further discussion and possible nasal endoscopy Follow up: 1 month This visit lasted for more than 30 minutes and greater than 50% of the visit was involved in the discussion of the options for treatment. Corinna Guevara MD * Myah Wade BSN - 06/15/2022 4:24 PM EST Pt identified by name and . Patient at risk for falls:No Falls Risk protocol implemented: No Present in room for physical exam portion of visit. documented in this [id number] Lary Salgado is a 41 year old female who presents for evaluation of nasal issues. 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 She wondered as to repair. No show x1 She was considered for a prosthesis for her speech, but was not made. She had mandibulomaxillary advancement 20y prior. Her speech was improved after BMT (Dr Chua in [place]). Last seen in 2016, She reports her voice was poor and she sought improvement. Her voice was very hypernasal. She had food and liquids reflux into her nose on a regular basis. She had a septal button placed per her doc in [place], but her voice remained hypernasal - would a perf repair aid her voice? She had a right TM perf repair planned for the future. Past Medical History: Diagnosis Date Hep C w/o coma, chronic (HCC) 2008 Past Surgical History: Procedure Laterality Date ear tubes 2016 ELBOW LEFT 2012 orthognathic surgery 1997 [place], [place] Social History Socioeconomic History Marital status: Single Tobacco Use Smoking status: Every Day Packs/day: 0.50 Years: 15.00 Pack years: 7.50 Types: Cigarettes Substance and Sexual Activity Alcohol use: No Alcohol/week: 0.0 standard drinks Drug use: Yes Comment: opiods, heroin (last time 21 months) Sexual activity: Yes Partners: Male control/protection: Injection No family history on file. Family history: No family history issues of import noted. Current Outpatient Medications Medication Sig Dispense Refill quetiapine (SEROQUEL) 100 MG tablet Take 100 mg by mouth at bedtime. 6 medroxyPROGESTERone (DEPO-PROVERA) 150 MG/ML injection 0 No current facility-administered medications for this visit. No Known Allergies The family history was assessed and any pertinent issues are noted in the text above. The following systems were reviewed with the patient and no abnormalities pertinent to the history of present illness, other than those listed below, were reported: constitutional, eyes, cardiovascular, respiratory, gastrointestinal, genitourinary, musculoskeletal, integumentary, neurologic, psychiatric, endocrine, hematologic/lymphatic, allergic/immunologic. (ENT already listed in CC AND HPI) ROS: s/p mandibulomaxillary advancement, h/o cocaine use PE: General appearance: alert, no distress, oriented to time, place and person Face: Without deformity or lesion, no facial tenderness and normal salivary glands Eyes: Clear and bright, Full Extraocular muscle movement, Conjunctiva clear Ears: Tympanic membrane: right small post TM perf (3-4mm), left green PE tube ant/inf quadrant - looked plugged by cerumen in lumen, Yael-auricular normal, Pinna normal, Canal normal, Hearing impression Decreased Cranial Nerves: Equal and intact, Facial function symmetric and full Nose: Mucosa Boggy, debris at floor right > left, button in place Oral: Lips, teeth, tongue, oropharynx are normal; soft palate scarred - minimal movement seen - does NOT appear to coapt with oropharynx Neck: larynx normal and midline, no masses, displays no thyromegaly nor lymphadenopathy Voice: nasal voice - air escape Chest: no breathing difficulties Endoscope: I needed to utilize an endoscope to examine this patient as they required continued monitoring of pathology. After adequate topical anesthesia and decongestant, a flexible nasopharyngoscope was used to evaluate her nose. 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; septal perforation (likely from mandibulomaxillary or from cocaine); eustachian tube dysfunction with small right perf, left plugged tube Plan: obtain a waterpik ([employer] rubber goods assembler) to clean her nose more aggressively - may need after each meal; I explained that perforation repair would not solve her voice issues as her palate is really the source of her difficulties - no meds to aid this, but she may be a candidate for a pharyngeal flap - will refer to P/S for this discussion as I do not do cleft palate work; sales to keep in septal button I mentioned that her eustachian tubes are likely not functioning well, as her palate, and she will remain having ear difficulties - I asked her to discuss this with her ENT doc, as right TM repair might lead to recurrent middle ear effusion, left tube might need replacement/pulling too Ridge Hobbs MD cc: Dr. Zana Friedman MD, otolaryngologyThe [facility] 04-18-2022 Instructions* Patient Instructions* Ridge Hobbs MD - 04/18/2022 9:32 AM EDT HOW TO MAKE SALINE (SALT) SOLUTION 1. Obtain a pint (16 ounce) jar with screw top lid and large sauce garcía with cover. 2. Place open jar and lid in sauce garcía. Cover with water. Bring to rolling boil and time for 10 minutes. 3. Pour off water carefully. Let jar and lid cool in garcía. Remove jar without touching the edge or inside. 4. Measure 1 pint (16 ounces) of water and add one half teaspoon of salt. Pickling/jarred/or Kosher salts are best as they are quite pure. Several pinches of bicarbonate can be added to buffer the solution if desired. 5. Bring to a gentle boil for ten minutes. Allow the solution to cool, and pour it into the boiled jar without touching the inside edge. Use as directed. Lavage (washing or cleaning) the nose and sinuses Your nose is lined by ciliated cells which propel mucus back to your throat all day long - approximately 1-2 liters of mucus are moved along per day under normal circumstances. At times though, the mucus may not flow sufficiently well and an aid is needed to wash (lavage) the nose. Salt water (saline) mimics the mucus blanket within the nose, so it is better than plain water. Saline can also be delivered into the nose by sniffing, using a baby's nose bulb-suction, or with anasal rubber goods assembler (a Waterpik type device; about $80.00 for both the Waterpik and rubber goods assembler, SinuPulse Elite Advanced Nasal Sinus Irrigation System by [employer] on [employer]; powerful flow to knock away crusts and enter sinuses). Navage is a device that uses suction to pull saline from one side, around the back, and out the other nostril. It uses proprietary salt pods, and suction rather than propelling spray. The basic package is also about $80. It can be found on [employer], or: https://www.[employer]/qqci-vkwjwto-lhruz-irrigation-p/bdl-b-nc.htm A NasoNeb (nasal nebulizer, call to order, more of a vapor machine) can deliver voluminous mist to the nose to wet tissue; it may not knock out crusts, though some patients may prefer it if a spray or suction feels too powerful. I usually advise the strongest device, an rubber goods assembler or Navage, to knock away crusts in the nose that may develop from prior surgery, chronic infections, orautoimmune disorders. To make saline: boil 1 quart water, add 1 tablespoon of salt: pickling, jarred, or regular, and add 1 teaspoon of bicarbonate to reduce any chance of stinging. Let the solution cool before use! pharyngeal flap documented in this [id number] History of Present illness Narrative* Ridge Hobbs MD - 04/18/2022 9:30 AM EDT Images from the original note were not included. Nicolette Salgado is a 41 year old female who presents for evaluation of nasal issues. 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 She wondered as to repair. No show x1 She was considered for a prosthesis for her speech, but was not made. She had mandibulomaxillary advancement 20y prior. Her speech was improved after BMT (Dr Chua in [place]). Last seen in 2016, She reports her voice was poor and she sought improvement. Her voice was very hypernasal. She had food and liquids reflux into her nose on a regular basis. She had a septal button placed per her doc in [place], but her voice remained hypernasal - would a perf repair aid her voice? She had a right TM perf repair planned for the future. Past Medical History: Diagnosis Date Hep C w/o coma, chronic (HCC) 2008 Past Surgical History: Procedure Laterality Date ear tubes 2016 ELBOW LEFT 2012 orthognathic surgery 1997 [place], [place] Social History Socioeconomic History Marital status: Single Tobacco Use Smoking status: Every Day Packs/day: 0.50 Years: 15.00 Pack years: 7.50 Types: Cigarettes Substance and Sexual Activity Alcohol use: No Alcohol/week: 0.0 standard drinks Drug use: Yes Comment: opiods, heroin (last time 21 months) Sexual activity: Yes Partners: Male control/protection: Injection No family history on file. Family history: No family history issues of import noted. Current Outpatient Medications Medication Sig Dispense Refill quetiapine (SEROQUEL) 100 MG tablet Take 100 mg by mouth at bedtime. 6 medroxyPROGESTERone (DEPO-PROVERA) 150 MG/ML injection 0 No current facility-administered medications for this visit. No Known Allergies The family history was assessed and any pertinent issues are noted in the text above. The following systems were reviewed with the patient and no abnormalities pertinent to the history of present illness, other than those listed below, were reported: constitutional, eyes, cardiovascular, respiratory, gastrointestinal, genitourinary, musculoskeletal, integumentary, neurologic, psychiatric, endocrine, hematologic/lymphatic, allergic/immunologic. (ENT already listed in CC & HPI) ROS: s/p mandibulomaxillary advancement, h/o cocaine use PE: General appearance: alert, no distress, oriented to time, place and person Face: Without deformity or lesion, no facial tenderness and normal salivary glands Eyes: Clear and bright, Full Extraocular muscle movement, Conjunctiva clear Ears: Tympanic membrane: right small post TM perf (3-4mm), left green PE tube ant/inf quadrant - looked plugged by cerumen in lumen, Yael-auricular normal, Pinna normal, Canal normal, Hearing impression Decreased Cranial Nerves: Equal and intact, Facial function symmetric and full Nose: Mucosa Boggy, debris at floor right > left, button in place Oral: Lips, teeth, tongue, oropharynx are normal; soft palate scarred - minimal movement seen - does NOT appear to coapt with oropharynx Neck: larynx normal and midline, no masses, displays no thyromegaly nor lymphadenopathy Voice: nasal voice - air escape Chest: no breathing difficulties Endoscope: I needed to utilize an endoscope to examine this patient as they required continued monitoring of pathology. After adequate topical anesthesia and decongestant, a flexible nasopharyngoscope was used to evaluate her nose. 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; septal perforation (likely from mandibulomaxillary or from cocaine);eustachian tube dysfunction with small right perf, left plugged tube Plan: obtain a waterpik ([employer]) to clean her nose more aggressively - may need after each meal; I explained that perforation repair would not solve her voice issues as her palate is really the source of her difficulties - no meds to aid this, but she may be a candidate for a pharyngeal flap - will refer to P/S for this discussion as I do not do cleft palate work; sales to keep in septal button I mentioned that her eustachian tubes are likely not functioning well, as her palate, and she will remain having ear difficulties - I asked her to discuss this with her ENT doc, as right TM repair might lead to recurrent middle ear effusion, left tube might need replacement/pulling too Ridge Hobbs MD cc: Dr. Zana Friedman MD, otolaryngology * Bowen Hernandez MTA - 04/18/2022 9:17 AM EDT Patient was identified by name and date of . ZAYRA Keating Patient in exam room, vital signs taken, ready for MD exam. [facility] No data available for this section General Surgery [place] Evaluation note* Diagnosis Velopharyngeal insufficiency, acquired- Primary Other and unspecified diseases of the oral soft tissues Nasal septal defect Other diseases of nasal cavity and sinuses H/O cocaine abuse (HCC) Dysfunction of both eustachian tubes [facility]* Diagnosis Velopharyngeal insufficiency, acquired Other and unspecified diseases of the oral soft tissues [facility]* Diagnosis Velopharyngeal insufficiency, acquired- Primary Other and unspecified diseases of the oral soft tissues [facility]* Diagnosis Conductive hearing loss of right ear with unrestricted hearing of left ear- Primary Middle ear effusion, right Tympanic membrane perforation, left [facility]* Diagnosis Velopharyngeal insufficiency, acquired- Primary Other and unspecified diseases of the oral soft tissues Conductive hearing loss of right ear, unspecified hearing status on contralateral side Dysfunction of both eustachian tubes [facility] No data available for this section General Surgery [place] Progress note No data available for this section General Surgery [place] Summary Purpose Family History No Family History Records FoundNo Family History Records FoundNo Family History Records Found Advance Directives No Advanced Directives Records FoundNo Advanced Directives Records FoundNo Advanced Directives Records Found Reason for Referral Specialty Diagnoses / Procedures Referred By Contquoc t Referred To Contact Radiology Diagnoses Velopharyngeal insufficiency, acquired Procedures CT SINUS W/O CONTRAST [facility] Plastic Surgery [address] [place] [phone] [facility] CT SCAN Referral ID Status Reason Start Date Expiration Date V isits Requested Visits Authorized [id number] Pending Review 06/15/2022 06/15/2023 1 1 Specialty Diagnoses / Procedures Referred By Izabella t Referred To Contact Plastic Surgery Diagnoses Nasal septal defect Velopharyngeal insufficiency, acquired H/O cocaine abuse ([facility]) Ridge Hobbs MD [address] [place] [address] Corinna Guevara MD [address] [place] [id number] Referral ID Status Reason Start Date Expiration Date V isits Requested Visits Authorized [id number] Authorized 04/18/2022 04/18/2023 3 3 Scheduling Instructions Please call the Plastic Surgery Office at to schedule an appointment if one was not made for you today. Additional Source Comments Care Team (unrecognized sect ion and content) Inspection Manager Relationship Specialty Start Date End Date Ridge Hobbs MD [address] [place] [address] Physician Otolaryngology 05/19/22 Inspection Manager Relationship Specialty Start Date End Date Ridge Hobbs MD [address] [place] [address] Physician Otolaryngology 05/19/22 Beth Marsh RN [address] [place] [phone] Distribution District Supervisor Care Management 06/18/22 Inspection Manager Relationship Specialty Start Date End Date Ridge Hobbs MD [address] [place] [address] Physician Otolaryngology 05/19/22 Beth Marsh RN [address] [place] [phone] Distribution District Supervisor Care Management 06/18/22 Corinna Guevara MD [address] [place] [phone] Physician Plastic Surgery 07/21/22 Inspection Manager Relationship Specialty Start Date End Date Ridge Hobbs MD [address] [place] [phone] Physician Otolaryngology 05/19/22 Beth Marsh RN [address] [place] [phone] Distribution District Supervisor Care Management 06/18/22 Corinna Guevara MD [address] [place] [phone] Physician Plastic Surgery 07/21/22 Inspection Manager Relationship Specialty Start Date End Date Ridge Hobbs MD [address] [place] [phone] Physician Otolaryngology 05/19/22 Beth Marsh RN [address] [place] [phone] Distribution District Supervisor Care Management 06/18/22 Corinna Guevara MD [address] [place] [phone] Physician Plastic Surgery 07/21/22 Inspection Manager Relationship Specialty Start Date End Date Ridge Hobbs MD [address] [place] [phone] Physician Otolaryngology 05/19/22 Beth Marsh RN [address] [place] [phone] Distribution District Supervisor Care Management 06/18/22 Corinna Guevara MD [address] [place] [phone] Physician Plastic Surgery 07/21/22 Inspection Manager Relationship Specialty Start Date End Date Ridge Hobbs MD [address] [place] [phone] Physician Otolaryngology 05/19/22 Beth Marsh RN [address] [place] [phone] Distribution District Supervisor Care Management 06/18/22 Corinna Guevara MD [address] [place] [phone] Physician Plastic Surgery 07/21/22 Inspection Manager Relationship Specialty Start Date End Date Ridge Hobbs MD [address] [place] [address] Physician Otolaryngology 05/19/22 Beth Marsh RN [address] [place] [phone] Distribution District Supervisor Care Management 06/18/22 Corinna Guevara MD [address] [place] [phone] Physician Plastic Surgery 07/21/22 Inspection Manager Relationship Specialty Start Date End Date Ridge Hobbs MD [address] [place] [address] Physician Otolaryngology 05/19/22 Beth Marsh RN [address] [place] [phone] Distribution District Supervisor Care Management 06/18/22 Corinna Guevara MD [address] [place] [phone] Physician Plastic Surgery 07/21/22 Inspection Manager Relationship Specialty Start Date End Date Ridge Hobbs MD [address] [place] [address] Physician Otolaryngology 05/19/22 Corinna Guevara MD [address] [place] [address] Physician Plastic Surgery 07/21/22 INFORMATION SOURCE (unrecogn ized section and content) DATE CREATED AUTHOR 04/15/2022 Jericho Irvinus [facility] DATE CREATED AUTHOR AUTHOR'S ORGANIZ ATION 07/26/2022 [facility] DATE CREATED AUTHOR AUTHOR'S ORGANIZ ATION 12/21/2022 [employer] [facility] Reason for Visit (unrecogniz ed section and content) Reason Comments New patient, to establish relationship Reason Comments New patient, to establish relationship v elopharyngeal defect Specialty Diagnoses / Procedures Referred By Izabella hernandez Referred To Contact Plastic Surgery Diagnoses Nasal septal defect Velopharyngeal insufficiency, acquired H/O cocaine abuse ([facility]) Ridge Hobbs MD [address] [place], [place] [phone] Corinna Guevara MD [address] [place] [address] Referral ID Status Reason Start Date Expiration Date V isits Requested Visits Authorized [id number] Authorized 04/18/2022 04/18/2023 3 3 Reason Comments New patient, to establish relationship C Clinic Reason Comments APPOINTMENT SCHEDULING CFD Referral Specialty Diagnoses / Procedures Referred By Contquoc t Referred To Contact Radiology Diagnoses Velopharyngeal insufficiency, acquired Procedures CT SINUS W/O CONTRAST Corinna Guevara MD [address] [place] [address] [facility] CT SCAN Referral ID Status Reason Start Date Expiration Date V isits Requested Visits Authorized [id number] Closed Transfer of Care-[facility] 07/18/2022 08/17/2022 1 1 Reason Comments APPOINTMENT SCHEDULING CFD Reason Comments Care Coordination CFD Reason Comments Medical Record Review CFD F/U Reason Comments Medical Record Review CFD FOR RECORDS PERTAINING TO PATIENTS WHO ARE OR HAVE BEEN ENROLLED IN A CHEMICAL DEPENDENCY/SUBSTANCEABUSE PROGRAM, SOME INFORMATION MAY BE OMITTED. This clinical summary was aggregated from multiple sources. Caution should be exercised in using it in the provision of clinical care. This summary normalizes information from multiple sources, and as a consequence, information in this document may materially change the coding, format and clinical context of patient data. In addition, data may be omitted in some cases. CLINICAL DECISIONS SHOULD BE BASED ON THE PRIMARY CLINICAL RECORDS. [facility] provides no warranty or guarantee of the accuracy or completeness of information in this document.
[2024-07-27 12:51] LABS: Alanine Aminotransferase 14 U/L (14-59); Albumin Globulin Ratio 1.2; Albumin Level 3.6 g/dL (3.4-5.0); Alkaline Phosphatase 45 U/L (46-116); Anion Gap 14.2; Aspartate Amino Transferase 14 U/L (15-37); BUN Creatinine Ratio 23.1; Bilirubin Total 0.2 mg/dL (0.2-1.0); Calcium 8.5 mg/dL (8.5-10.1); Carbon Dioxide 25.9 mmol/L (21.0-32.0); Chloride 105 mmol/L (98-107); Estimated GFR (African America >60 (>=60 mL/min/1.73m^2); Estimated GFR (Non-African Ame >60 (>=60 mL/min/1.73m^2); Glucose 96 mg/dL (74-106); Potassium 4.1 mmol/L (3.5-5.1); Sodium 141 mmol/L (136-145); Total Protein 6.6 g/dL (6.4-8.2)
== END 2024-07-27 11:40 | disposition home or self-care (01) ==
LOC: LAB 11:41
PROVIDERS: PCP Family Medicine; Visit Provider Nurse Practitioner Family
DX: F11.20 Opioid dependence, uncomplicated (principal); F19.20 Other psychoactive substance dependence, uncomplicated; F31.9 Bipolar disorder, unspecified; F41.1 Generalized anxiety disorder
CPT/HCPCS: 36415; 80053; 85025

== ENCOUNTER 2025-02-15 20:30 | Outpatient (REF) | payer OTHER, SELFPAY ==
--- OUTSIDE RECORDS SUMMARY | 2025-02-12 04:28 | XMS_ITS | Continuity of Care Document ---
Author Organization [facility] Address [address] [place] [address] Phone Care Team Providers Care Construction Technician Name Role Phone Naeem Veronica Unavailable Unavailable Allergies, Adverse Reactions, Alerts Substance Reaction Status Criticality No Known Allergies Active No Inform ation Medications Medication Instructions Dosage Effective Dates (start - stop) Status Comments lamotrigine 25 mg tablet take 2 tablet by oral route 2 times every day 50 MG - Active Suboxone 12 mg-[address] 1 film by sublingual route every day allow to dissolve slowly in mouth without chewing or swallowing 1.00 film - Active Aristada 441 mg/1.6 mL suspension, extend.rel. IM syringe inject 1.6 milliliter by intramuscular route every month 441 MG - Active buspirone 5 mg tablet take 1 tablet by oral route 2 times every day 5 MG - Active Procedures Procedure Date IMMUNIZATION ADMIN TDAP VACCINE >7 IM ROUTINE VENIPUNCTURE ROUTINE VENIPUNCTURE Periodic Oral Eval Estab Patient 2023 [employer] Intraoral-periapical 1st Film Oral Hygiene Instruction Prophylaxis Adult [employer] [place] Dis Apr Tobacco Counseling Oral Hygiene Instruction Treatment Completed Oral Hygiene Instruction No Charge Comp Oral Eval New/estab Patient 2018 Intraoral-complete Series (bw) 19 [employer] [place] Dis Jan Oral Hygiene Instruction Tobacco Counseling Oral Hygiene Instruction TB INTRADERMAL TEST TB INTRADERMAL TEST Advance Directives Directive Yes / No Effective Date File Name No Information Encounters Encounter Description Practice Location Reason(s) For Visit Diagnoses Date Provider Providers Copied on Encounter [facility], [address] [place] [address], [id number] , [place] tel: [phone] [facility] Lab draw (chief complaint) Encounter for screening for respiratory tuberculosisEncounter for antibody response examinationEncounter for screening for other viral diseases 5 Jewels Ferrell. [address] [place] [address], [id number] , [place]. tel: [phone] [facility], [address] [place] [address], [id number] , [place] tel: [phone] [facility] (chief complaint) [place] (chief complaint) Body mass index [BMI] 22.0-22.9, adultEncounter for screening for dental disorders 4 Kannancy Hernandez. [address] [place] [address], [id number] , [place]. tel: [phone] [facility], [address] [place] [address], [id number] , [place] tel: [phone] [facility] prophy (chief complaint) Encounter for screening for dental disorders 9 Zechariah Elena. [address] [place] [address], [id number] , [place]. tel: [phone] [facility], [address] [place] [address], [id number] , [place] tel: [phone] Dental Clinic consult (chief complaint) Encounter for screening for dental disorders 9 Zechariah Elena. [address] [place], [place], [id number] , [place]. tel:[phone] [facility], [address] [place], [place], [id number] , [place] tel: [phone] [facility] Clinic Dental New (chief complaint) Encounter for screening for dental disorders 9 Zechariah Elena. [address] [place], [place], [id number] , [place]. tel: [phone] [facility], [address] [place], [place], [id number] , [place] tel: [phone] [facility] Screening examination for pulmonary tuberculosis 2 Jewels Ferrell. [address] [place], [place], [id number] , [place]. tel: [phone] Family History Family Member Type Diagnosis Age At Onset No Information Immunizations Vaccine Date Status Comments Tdap (Boostrix) administered Source: New Immunization Record Payers Payer name Insurance type Covered libertarian ID Authoriza tion(s) Self Pay Cap 09 Self Pay Cap 09 Social History Type Description Quantity Date Captured Comments Alcohol Use Details Unknown Caffeine Use Details Unknown Tobacco Use Status Smoking Status No Information Sex Female Sexual Orientation Straight or heterosexual Gender Identity Female Chief Complaint And Reason For Visit From encounter dated '02/12/2025 08:28'. Lab draw (chief complaint). Description: Lab draw x 4 attempts from left wrist, tolerated well, pressure dressing to area. Lonnie Ivy RN Reason For Referral Reason For Referral No Information Plan Of Treatment Date Type Action Status Goal Hepatitis C scre ening. Due on due Goal Lipid panel. Due on 025 due Goal RLP. Due on due Goal Depression scree bibiana. Due on due Goal Tdap due Goal Influenza vaccine. Due on Au due Goal PRAPARE ASSESSMENT. Due on A due Goal Tdap Vaccine. Due on 2034 due Goal Unhealthy drug u se screening. Due on due Goal HPV. Due on due Goal Tdap Vaccine. Due on 2023 due Goal Lipid panel. Due on due Goal HPV. Due on due Goal Influenza vaccine. Due on due Goal RLP. Due on due Goal Unhealthy drug u se screening. Due on due Goal Depression scree bibiana. Due on due Goal Hepatitis C scre ening. Due on due Goal Hep A. Due on du e Goal PRAPARE ASSESSMENT. Due on due Goal Tdap. Due on due Goal Dietary manageme nt education, guidance, and counseling completed Appointment Nicolette Salgado BOOKED Future Order: Lab Order QuantiFE FRANCISCO-TB Gold Plus ([id number]), Collected on: , Sent on: Sent Future Order: Lab Order Hep B Santillan rface Ab ([id number]), Collected on: , Sent on: Sent Future Order: Lab Order Rubeola Antibodies, IgG ([id number]), Collected on: , Sent on: Sent History Of Present Illness Encounter Date Complaint History Of Prese nt Illness Lab draw Lab draw x 4 att empts from left wrist, tolerated well, pressure dressing to area. Lonnie Ivy RN TRAVIS ROBLES TRAVIS prophy prophy consult consult Dental New Dental New Functional Status Date Functional Assessmen t No Information Instructions Date Instruction Additional Infor mation Giving encouragement to exercise Related to Body mass index [BMI] 22.0-22.9, adult Dietary management e ducation, guidance, and counseling Related to Body mass index [BMI] 22.0-22.9, adult Assessments Type Assessment Date assessment Encounter for screening for resp iratory tuberculosis assessment Encounter for antibody response examination assessment Encounter for screening for othe r viral diseases Patient Care Teams Name Effective Dates (start - stop) Status Members No Information
--- OUTSIDE RECORDS SUMMARY | 2025-02-15 15:00 | XMS_ITS | Encounter Summary ---
Author Organization [facility] Address [address] [place] [address] Care Team Providers Care Welfare Case Worker Name Role Phone Hansa Gan Unavailable Gene Narvaez MD Primary Care Provider [phone] Reason for Visit * Reason Comments Well Women Visit Encounter Details Date Type Department Care Team (Late st Contact Info) Description 02/15/2025 3:00 PM EDT Office Visit [facility] [address] [facility] [place] [address] Hansa Gan PA [address] [facility] [address] [place], [facility]11 Well woman exam with routine gynecological exam; Breast cancer screening by mammogram; Mass of upper outer quadrant of right breast; Mass of right breast, unspecified quadrant; Fibroadenosis of right breast Social History Tobacco Use Types Packs/Day Years Used Date Smoking Tobacco: Every Day Cigarettes Alcohol Use Standard Drinks/Week Comments Not Currently 0 (1 standard drink = 0.6 oz pure alcohol) Caffeine: 1-2 cups/day coffee Comments No Sex and Gender Information Value Date Recorded Sex Assigned at Not on file Legal Sex Female 6:36 PM EDT Gender Identity Not on file Sexual Orientation Not on file documented as of this encounter Last Filed Vital Signs Vital Sign Reading Time Taken Comments Blood Pressure 120/80 02/15/2025 3:13 PM EDT Pulse - - Temperature - - Respiratory Rate - - Oxygen Saturation - - Inhaled Oxygen Concentration - - Weight 61.2 kg (135 lb) 02/15/2025 3:13 PM EDT Height - - Body Mass Index 22.47 10/06/2024 10:22 AM EDT documented in this encounter Progress Notes * TRAVIS Saleh - 02/15/2025 3:00 PM EDT Reason for Appointment: Patient ID: Nicolette Salgado is a 44 y.o. female who presents for Well Women Visit Patient presents today for Annual Exam. MEDICATIONS Current Outpatient Medications Medication Instructions buprenorphine (Subtex) 8 MG 1 tablet under the tongue and allow to dissolve Sublingual two times daily cetirizine (ZyrTEC) 5 MG chewable tablet Daily etonogestrel-eluting 68 mg contraceptive implant 1 each, Once fluticasone (Flonase) 50 MCG/ACT nasal spray 1 spray, Daily ALLERGIES No Known Allergies PROBLEMS Active Ambulatory Problems Diagnosis Date Noted Abnormal findings on screening of mother 10/05/2024 Acne vulgaris 04/18/2022 Adjustment disorder with mixed disturbance of emotions and conduct 04/18/2022 Anemia 04/18/2022 Bipolar affective disorder, currently manic, mild ([facility]) 04/18/2022 Depressive disorder 04/18/2022 Deviated nasal septum 10/24/2015 Dysfunction of both eustachian tubes 11/15/2016 Eczema 04/18/2022 H/O cocaine abuse ([facility]) 04/18/2022 Bilateral hearing loss 12/18/2016 History of alcohol abuse 10/05/2024 History of hepatitis C virus infection 04/18/2022 History of heroin abuse ([facility]) 10/05/2024 Hoarseness 09/22/2018 Resolved Ambulatory Problems Diagnosis Date Noted No Resolved Ambulatory Problems Past Medical History: Diagnosis Date Abnormal quad screen Advanced maternal age in multigravida ([facility]) Depression ETD (eustachian tube dysfunction) History of hepatitis C History of OCD (obsessive compulsive disorder) Liver disease 2011 Maternal care for rhesus isoimmunization during antepartum period, currently delivered ([facility]) Opioid abuse ([facility]) Opioid dependence (H[facility]) Otitis media, chronic Tobacco use affecting in third trimester, antepartum ([facility]) Umbilical hernia Underweight HISTORY PAST MEDICAL HISTORY SOCIAL HISTORY Past Medical History: Diagnosis Date Abnormal quad screen Advanced maternal age in multigravida ([facility]) Depression ETD (eustachian tube dysfunction) History of alcohol abuse History of hepatitis C History of heroin abuse ([facility]) History of OCD (obsessive compulsive disorder) Liver disease 2011 Maternal care for rhesus isoimmunization during antepartum period, currently delivered ([facility]) Opioid abuse ([facility]) Opioid dependence ([facility]) Otitis media, chronic Tobacco use affecting in third trimester, antepartum ([facility]) Umbilical hernia Underweight Social History Tobacco Use Smoking status: Every Day Current packs/day: 1.00 Types: Cigarettes Smokeless tobacco: Not on file Substance Use Topics Alcohol use: Not Currently Comment: Caffeine: 1-2 cups/day coffee Drug use: Never FAMILY HISTORY Family History Problem Relation Name Age of Onset Thyroid disease Mother Hypertension Father Heart disease Maternal Grandfather Cancer Paternal Grandmother Stroke Paternal Grandfather SURGICAL HISTORY Past Surgical History: Procedure Laterality Date ELBOW SURGERY 2011 MOUTH SURGERY 1996 MYRINGOTOMY W/ TUBES Right 11/2009 MYRINGOTOMY W/ TUBES 2016 multiple times MYRINGOTOMY W/ TUBES Right 2024 TYMPANOSTOMY TUBE CHANGE W/ MLB Right 07/05/2015 T-tube TYMPANOSTOMY TUBE PLACEMENT Right 04/28/2013 T-tube REVIEW OF SYSTEMS Review of Systems: Review of Systems Constitutional: Negative. HENT: Negative. Eyes: Negative. Respiratory: Negative. Cardiovascular: Negative. Gastrointestinal: Negative. Genitourinary: Negative. Musculoskeletal: Negative. Skin: Negative. Neurological: Negative. All other systems reviewed and are negative. Hematological: Negative. Endocrine: Negative. Allergic/Immunologic: Negative. OBJECTIVE Objective: Physical Exam Constitutional: Appearance: Normal appearance. She is well-developed. Genitourinary: Vulva normal. Cardiovascular: Rate and Rhythm: Normal rate and regular rhythm. Pulmonary: Effort: Pulmonary effort is normal. Breath sounds: Normal breath sounds. Abdominal: General: Bowel sounds are normal. There is no distension. Palpations: Abdomen is soft. Tenderness: There is no abdominal tenderness. There is no guarding or rebound. Musculoskeletal: General: No swelling. Normal range of motion. Right lower leg: No edema. Left lower leg: No edema. Neurological: Mental Status: She is alert and oriented to person, place, and time. Skin: General: Skin is warm and dry. Psychiatric: Mood and Affect: Mood normal. Behavior: Behavior normal. Vitals and nursing note reviewed. Exam conducted with a custom motorcycle painter present. Vitals: Estimated body mass index is 22.47 kg/m?? as calculated from the following: Height as of 10/06/24: 5' 5 . Weight as of this encounter: 135 lb. BP: 120/80 No LMP recorded. Patient has had an implant. ASSESSMENT & PLAN ICD-10-CM 1. Well woman exam with routine gynecological exam Z01.419 THIN PREP TIS PAP AND HR HPV DNA 2. Breast cancer screening by mammogram Z12.31 Bilateral diagnostic mammogram Bilateral diagnostic mammogram CANCELED: Bilateral screening mammogram CANCELED: Bilateral screening mammogram 3. Mass of upper outer quadrant of right breast N63.11 Bilateral diagnostic mammogram Bilateral diagnostic mammogram 4. Mass of right breast, unspecified quadrant N63.10 Bilateral diagnostic mammogram Bilateral diagnostic mammogram 5. Fibroadenosis of right breast N60.21 Bilateral diagnostic mammogram Bilateral diagnostic mammogram Annual: Patient presents today for an annual exam. Patient states she is doing well and has no complaints. Pap was obtained without difficulty and patient given mammogram order to have scheduled/obtained dueto Right Breast mass at 9 o'clock position. Patient was to have a follow up to Biopsy which she never had completed. Orders Placed This Encounter Procedures Bilateral diagnostic mammogram Follow Up: Patient is to return in one year for annual unless needed otherwise. Documented by Apolonia Meade LPN on behalf of: TRAVIS Saleh documented in this encounter Plan of Treatment Upcoming Encounters Date Type Department Care Team (Late st Contact Info) Description 02/17/2026 2:00 PM EDT Procedure Visit [facility] [place] [facility] [address] [facility] [place] [phone] Hansa Gan PA [address] [facility] [place] [address] Scheduled Orders Name Type Priority Associated Diagnoses Orde r Schedule THIN PREP TIS PAP AND HR HPV DNA Pathology and Cytology Routine Well woman exam with routine gynecological exam Ordered: 02/15/2025 Bilateral diagnostic mammogram Imaging Routine Breast cancer screening by mammogram Mass of upper outer quadrant of right breast Mass of right breast, unspecified quadrant Fibroadenosis of right breast Expected: 02/15/2025 (Approximate), Expires: 04/17/2026 documented as of this encounter Visit Diagnoses Diagnosis Well woman exam with routine gynecological exam Routine gynecological examination Breast cancer screening by mammogram Mass of upper outer quadrant of right breast Mass of right breast, unspecified quadrant Fibroadenosis of right breast documented in this encounter Care Teams Welfare Case Worker Relationship Specialty Start Date End Date Hansa Gan PA [address] [place] [address] [place] [address] PCP - [facility] 04/14/24 Gene Narvaez MD [address] [facility] [place] [phone] PCP - General Family Medicine 11/17/24 documented as of this encounter
--- OUTSIDE RECORDS SUMMARY | 2025-02-15 20:34 | XMS_ITS | Encounter Summary ---
Author Organization [facility] Address [id number] [address] [place] [address] Care Team Providers Care Sex Crimes Detective Name Role Phone Gene Narvaez MD Primary Care Provider + Encounter Details Date Type Department Care Team (Late st Contact Info) Description 11/14/2022 Documentation [facility] [address] [place] [address] Radha Williamson, PA-C [address] [facility] [address] [address] [place] [id number] Social History Tobacco Use Types Packs/Day Years Used Date Smoking Tobacco: Every Day Cigarettes Smokeless Tobacco: Never Alcohol Use Standard Drinks/Week Comments Not Currently 0 (1 standard drink = 0.6 oz pur e alcohol) former Childcare Answer Date Recorded Childcare Unknown 12/24/2018 Employment Answer Date Recorded Employment Unknown 12/24/2018 Purpose - Life Answer Date Recorded Purpose and direction in life Unknown Comments No Sex and Gender Information Value Date Recorded Sex Assigned at Not on file Legal Sex Female 11:55 AM EDT Gender Identity Not on file Sexual Orientation Not on file documented as of this encounter Plan of Treatment Not on file documented as of this encounter Visit Diagnoses Not on filedocumented in this encounter Care Teams Sex Crimes Detective Relationship Specialty Start Date End Date Gene Narvaez MD PCP - General 11/15/16 documented as of this encounter
--- OUTSIDE RECORDS SUMMARY | 2025-02-15 20:34 | XMS_ITS | Encounter Summary ---
Author Organization [facility] Address [address] [facility] [place] [address] Care Team Providers Care Industrial Education Teacher Name Role Phone Hansa Gan Unavailable Gene Narvaez MD Primary Care Provider [phone] Encounter Details Date Type Department Care Team (Late Contact Info) Description 06/04/2023 Abstract [facility] [address] [facility] [place] [address] Mario Julio DO [address] [place], [facility]11 Social History Tobacco Use Types Packs/Day Years [...] as of this encounter Plan of Treatment Upcoming Encounters Date Type Department Care Team (Late Contact Info) Description 02/17/2026 2:00 PM EDT Procedure Visit T[facility] SCOTT [address] [place] [address] Hansa Gan PA [address] [place], [facility]11 documented as of this encounter Visit Diagnoses Not on filedocumented in this encounter Care Teams Industrial Education Teacher Relationship Specialty Start Date End Date Hansa Gan PA [address] [place], [facility]11 PCP - [facility] 04/14/24 Gene Narvaez MD [address] [place] [address] PCP - General Family Medicine 11/17/24 documented as of this encounter
--- OUTSIDE RECORDS SUMMARY | 2025-02-15 20:34 | XMS_ITS | Clinical Summary ---
Author Organization [facility] Address [address] [place] [address] Care Team Providers Care Film Inspector Name Role Phone Gene Narvaez MD Primary Care Provider [phone] Social History Tobacco Use Types Packs/Day Years Used Date Smoking Tobacco: Never Assessed Comments Unknown Sex and Gender Information Value Date Recorded Sex Assigned at Not on file Legal Sex Female 8:35 AM EST Gender Identity Not on file Sexual Orientation Not on file Plan of Treatment Not on file Care Teams Film Inspector Relationship Specialty Start Date End Date Gene Narvaez MD PCP - General Family Medicine 10/16/10
--- OUTSIDE RECORDS SUMMARY | 2025-02-15 20:34 | XMS_ITS | Encounter Summary ---
Author Organization [facility] Address [address] [facility] [place] [address] Care Team Providers Care Oil And Gas Principal Name Role Phone Hansa Gan Unavailable Gene Narvaez MD Primary Care Provider [phone] Encounter Details Date Type Department Care Team (Late Contact Info) Description 10/02/2024 Orders Only [facility] [address] [place] [phone] Unallocated, N[facility] MD Riki [address] [place] [address] Social History Tobacco Use Types Packs/Day Years [...] Description 02/17/2026 2:00 PM EDT Procedure Visit [facility] [address] [facility] [place] [phone] Hansa Gan PA [address] [facility] [address] [place], [place] [phone] documented as of this encounter Procedures Procedure Name Priority Date/Time Associated Diagnosis Comments AUDIOMETRY WITH TYMPANOMETRY Routine 09/28/2024 11:47 AM EDT documented in this encounter Results * Audiometry with tympanometry (09/28/2024 11:47 AM EDT) us Noms Provider Unallocated AUDIOLOGY SERVICES ORDERABLES Final Result documented in this encounter Visit Diagnoses Not on filedocumented in this encounter Care Teams Oil And Gas Principal Relationship Specialty Start Date End Date Hansa Gan PA [address] [facility] [place] [address] PCP - [facility] 04/14/24 Gene Narvaez MD [address] [facility] [address] [place] [address] PCP - General Family Medicine 11/17/24 documented as of this encounter
--- OUTSIDE RECORDS SUMMARY | 2025-02-15 20:34 | XMS_ITS | Clinical Summary ---
Author Organization [facility] Address [address] [place] [address] Care Team Providers Care Adult And Pediatric Neurologist Name Role Phone Hansa Gan Unavailable Gene Narvaez MD Primary Care Provider [phone] Allergies No known active allergies Medications buprenorphine (Subtex) 8 MG 1 tablet under the tongue and allow to dissolve Sublingual two times daily Active etonogestrel-elut ing 68 mg contraceptive implant 1 each by Implant route 1 (one) time. Active fluticasone (Flonase) 50 MCG/ACT nasal spray Administer 1 spray into each nostril Daily Shake gently. Before first use, prime pump. After use, clean tip and replace cap. Active cetirizine (ZyrTEC) 5 MG chewable tablet Chew Daily Act lacho Active Problems Problem Noted Date Diagnosed Date Abnormal findings on screening of moth er 10/05/2024 History of alcohol abuse 10/05/2024 History of heroin abuse 10/05/2024 Acne vulgaris 04/18/2022 Adjustment disorder with mix ed disturbance of emotions and conduct 04/18/2022 Anemia 04/18/2022 Bipolar affective disorder, currently manic, mil d 04/18/2022 Depressive disorder 04/18/2022 Eczema 04/18/2022 H/O cocaine abuse 04/18/2022 History of hepatitis C virus infection Hoarseness 09/22/2018 Bilateral hearing loss 12/18/2016 Dysfunction of both eustachian tubes 11/15/2016 Deviated nasal septum 10/24/2015 Encounters Date Type Department Care Team Description 02/15/2025 3:00 PM EDT Office Visit [facility] [address] [facility] [place] [phone] Hansa Gan PA Well woman exam with routine gynecological exam; Breast cancer screening by mammogram; Mass of upper outer quadrant of right breast; Mass of right breast, unspecified quadrant; Fibroadenosis of right breast 02/15/2025 Bamboo flowsheet [facility] [address] [place] [address] [place] [phone] Hansa Gan PA from Last 3 Months Family History Medical History Relation Name Comments Hypertension Father Heart disease Maternal Grandfather Thyroid disease Mother Stroke Paternal Grandfather Cancer Paternal Grandmother Relation Name Status Comments Father Alive Maternal Grandfather Maternal Grandmother Alive Mother Alive Paternal Grandfather Paternal Grandmother Social History Tobacco Use Types Packs/Day Years Used Date Smoking Tobacco: Every Day Cigarettes Tobacco Cessation:Ready to Q uit: Not Asked; Counseling Given: Not Answered Alcohol Use Standard Drinks/Week Comments Not Currently 0 (1 standard drink = 0.6 oz pure alcohol) Caffeine: 1-2 cups/day coffee Comments No Sex and Gender Information Value Date Recorded Sex Assigned at Not on file Legal Sex Female 6:36 PM EDT Gender Identity Not on file Sexual Orientation Not on file Last Filed Vital Signs Vital Sign Reading Time Taken Comments Blood Pressure 120/80 02/15/2025 3:13 PM EDT Pulse 68 10/06/2024 10:22 AM EDT Temperature - - Respiratory Rate - - Oxygen Saturation - - Inhaled Oxygen Concentration - - Weight 61.2 kg (135 lb) 02/15/2025 3:13 PM EDT Height 165.1 cm (5' 5 ) 10/06/2024 10:22 AM EDT Body Mass Index 22.47 10/06/2024 10:22 AM EDT Plan of Treatment Upcoming Encounters Date Type Department Care Team (Late st Contact Info) Description 02/17/2026 2:00 PM EDT Procedure Visit [facility] [address] [place] [address] Hansa Gan PA [address] [facility] [address] [place], [place] [phone] Health Maintenance Due Date Last Done Comments Mammogram 05/31/2024 05/31/2023, 05/08/2023 Cervical Cancer Screening 07/23/2024 HPV/Cotest 07/23/2024 Influenza Vaccine (#1) 2025 Pap Smear 04/24/2026 04/24/2023, 07/23/2019 Procedures Procedure Name Priority Date/Time Associated Diagnosis Comments BI MAMMOGRAM SCREENING BILATERAL Routine 05/31/2023 11:05 AM EST Breast cancer screening by mammogram PAP SMEAR Routine 04/24/2023 12:00 AM EDT from Last 3 Months or Most Recently Relevant to Health Maintenance Results * Bilateral screening mammogram (05/31/2023 11:05 AM EST) Anatomical Region Laterality Modality Breast Bilateral Mammography us Hansa ROBLES IMG BI PROCEDURES Final Result * Pap Smear (04/24/2023 12:00 AM EDT) Swab Cervical swab / Unknown Sumanth Nurse [facility] Ob LAB CYTOLOGY ORDERABLES Final Result EXTERNAL LAB from Last 3 Months or Most Recently Relevant to Health Maintenance Insurance [employer] Care Teams Adult And Pediatric Neurologist Relationship Specialty Start Date End Date Hansa Gan PA [address] [place] [address] [place] [address] PCP - [facility] 04/14/24 Gene Narvaez MD [address] [place] [address] PCP - General Family Medicine 11/17/24
--- OUTSIDE RECORDS SUMMARY | 2025-02-15 20:34 | XMS_ITS | Encounter Summary ---
Author Organization [facility] Address [id number] [address] [place] [address] Care Team Providers Care Irrigationist Name Role Phone Gene Narvaez MD Primary Care Provider + Encounter Details Date Type Department Care Team (Late st Contact Info) Description 09/03/2022 Orders Only [facility] [address] [place] [address] External, Scanning Provider Social History Tobacco Use Types Packs/Day Years [...] on filedocumented in this encounter Care Teams Irrigationist Relationship Specialty Start Date End Date Gene Narvaez MD PCP - General 11/15/16 documented as of this encounter
--- OUTSIDE RECORDS SUMMARY | 2025-02-15 20:34 | XMS_ITS | Encounter Summary ---
Author Organization [facility] Address [address] [facility] [place] [address] Care Team Providers Care Tiller Worker Name Role Phone Hansa Gan Unavailable Gene Narvaez MD Primary Care Provider [phone] Encounter Details Date Type Department Care Team (Late Contact Info) Description 05/24/2023 Clinisync Result Encounter [facility] External Department Unsolicited Hansa Gan PA [address] [facility] [address] [place], [facility] Social History Tobacco Use Types Packs/Day Years [...] 02/17/2026 2:00 PM EDT Procedure Visit NOMMely SCOTT [address] [facility] [address] Hansa Gan PA [address] [facility] [address] [place], [place] [address] documented as of this encounter Procedures Procedure Name Priority Date/Time Associated Diagnosis Comments MM TOMOSYNTHESIS DIAGNOSTIC RT 05/24/2023 2:54 PM EST documented in this encounter Results * MM TOMOSYNTHESIS DIAGNOSTIC RT (05/24/2023 2:54 PM EST) Anatomical Region Laterality Modality Other 05/24/2023 2:54 PM EST Narrative 05/24/2023 2:54 [place] [address] Mammography Report Signed Patient: NICOLETTE GOODEN MR#: [id number] : 1980 Acct:[id number] Age/Sex: 43 / F ADM Date: 05/24/23 Loc: MAMMO Attending Dr: Hansa Gan Ordering Physician: Hansa Gan Results: Date of Service: 05/24/23 Follow Up: Procedure(s): MM tomosynthesis diagnostic RT Accession Number(s): [id number] cc: Hansa Gan; Gene Narvaez M.D. Patient Name: NICOLETTE GOODEN MR#: [id number] : 1980 Exam Date: 05/24/2023 Ordering Doctor: TRAVIS Gan . RADIOLOGY REPORT PROCEDURE: MM TOMOSYNTHESIS DIAGNOSTIC RT, 05/24/2023, 13:05 US BREAST RT LIMITED, 05/24/2023, 13:36 COMPARISON: MM TOMOSYNTHESIS SCREENING BI, 05/07/2023. INDICATIONS: mass of right breast, unspecified quadrant N63.10 Calculator Name NCI Breast Cancer Risk Assessment Tool 5 Year Breast Cancer Risk 0.50% Lifetime Breast Cancer Risk 9.00% Personal Breast Cancer No Personal Ovarian Cancer No Treatments None Family Cancers None LOCATION: [facility] BREAST COMPOSITION: Extremely dense, which lowers the sensitivity of mammography. FINDINGS: DIAGNOSTIC CATEGORY 4--SUSPICIOUS FOR MALIGNANCY. FINDING DOES NOT EXHIBIT CLASSIC FINDINGS OF BREAST CANCER: RIGHT BREAST: Spot magnification views demonstrate what appears to be dense fibroglandular tissue within the posterior upper-outer quadrant and what appears to be a partially circumscribed mass or cyst within posterior lower-inner quadrant. Ultrasound evaluation demonstrates upper-outer quadrant dense fibroglandular tissue and a 9 x 7 x 2 mm complex cyst versus mixed cystic and solid mass at the 4 o'clock position 4.8 cm from the nipple. Ultrasound-guided biopsy of the 4 o'clock lesion is recommended. RECOMMENDATIONS: ULTRASOUND-GUIDED CORE BIOPSY: RIGHT BREAST PLEASE NOTE: A NORMAL MAMMOGRAM DOES NOT EXCLUDE THE POSSIBILITY OF BREAST CANCER. A CLINICALLY SUSPICIOUS PALPABLE LUMP SHOULD BE BIOPSIED. Dictated by: Ridge Watson M.D. on 05/24/2023 at 14:49 Approved by: Ridge Watson M.D. on 05/24/2023 at 14:54 Dictated By: Ridge Watson M.D. Signed By: 05/24/23 1455 DD/ 1454 TD/TT: Hog Dropper: Procedure Note Radiology, Radiologist, MD - 05/24/2023 [place] [address] Mammography Report Signed Patient: NICOLETTE GOODEN RMR#: [id number] : 1980Acct:[id number] Age/Sex: 43 / FADM Date: 05/24/23 Loc: MAMMO Attending Dr: Hansa Gan Ordering Physician: Hansa Popeults: Date of Service: 05/24/23Follow Up: Procedure(s): MM tomosynthesis diagnostic RT Accession Number(s): [id number] cc: Hansa Gan; Gene Narvaez M.D. Patient Name: NICOLETTE GOODEN MR#: [id number] : 1980 Exam Date: 05/24/2023 Ordering Doctor: TRAVIS Gan . RADIOLOGY REPORT PROCEDURE: MM TOMOSYNTHESIS DIAGNOSTIC RT, 05/24/2023, 13:05 US BREAST RT LIMITED, 05/24/2023, 13:36 COMPARISON: MM TOMOSYNTHESIS SCREENING BI, 05/07/2023. INDICATIONS: mass of right breast, unspecified quadrant N63.10 Calculator Name NCI Breast Cancer Risk Assessment Tool 5 Year Breast Cancer Risk 0.50% Lifetime Breast Cancer Risk 9.00% Personal Breast Cancer No Personal Ovarian Cancer No Treatments None Family Cancers None LOCATION: [facility] BREAST COMPOSITION: Extremely dense, which lowers the sensitivity of mammography. FINDINGS: DIAGNOSTIC CATEGORY 4--SUSPICIOUS FOR MALIGNANCY. FINDING DOES NOT EXHIBIT CLASSIC FINDINGS OF BREAST CANCER: RIGHT BREAST: Spot magnification views demonstrate what appears to bedense fibroglandular tissue within the posterior upper-outer quadrant and what appears to be a partially circumscribed mass or cyst within posterior lower-inner quadrant. Ultrasound evaluation demonstrates upper-outer quadrant densefibroglandular tissue and a 9 x 7 x 2 mm complex cyst versus mixed cystic and solid massat the 4 o'clock position 4.8 cm from the nipple. Ultrasound-guided biopsyof the 4 o'clock lesion is recommended. RECOMMENDATIONS: ULTRASOUND-GUIDED CORE BIOPSY: RIGHT BREAST PLEASE NOTE: A NORMAL MAMMOGRAM DOES NOT EXCLUDE THE POSSIBILITY OFBREAST CANCER. A CLINICALLY SUSPICIOUS PALPABLE LUMP SHOULD BE BIOPSIED. Dictated by: Ridge Watson M.D. on 05/24/2023 at 14:49 Approved by: Ridge Watson M.D. on 05/24/2023 at 14:54 Dictated By: Ridge Watson M.D. Signed By:05/24/23 1455 DD/ 53 TD/TT: Hog Dropper: us [facility] Final Result documented in this encounter Visit Diagnoses Not on filedocumented in this encounter Care Teams Tiller Worker Relationship Specialty Start Date End Date Hansa Gan PA [address] [place] [address] [place] [address] PCP - [facility] 04/14/24 [place] [address] [place] [address] [place] [address] PCP - General Family Medicine 11/17/24 documented as of this encounter
--- OUTSIDE RECORDS SUMMARY | 2025-02-15 20:34 | XMS_ITS | Encounter Summary ---
Author Organization [facility] Address [address] [facility] [place] [address] Care Team Providers Care Spray Gun Repairer Name Role Phone Hansa Gan Unavailable Gene Narvaez MD Primary Care Provider [phone] Encounter Details Date Type Department Care Team (Late Contact Info) Description 04/20/2024 Orders Only TREVIN SCOTT [address] [facility] [place] [address] Apolonia Meade LPN [address] [place] [address] Social History Tobacco Use Types Packs/Day Years [...] PM EDT Procedure Visit NOMMely SCOTT [address] [facility] [place] [address] Hansa Gan PA [address] [facility] [facility] [address] [place], [facility]11 documented as of this encounter Procedures Procedure Name Priority Date/Time Associated Diagnosis Comments PAP SMEAR Routine 04/24/2023 12:00 AM EDT documented in this encounter Results * Pap Smear (04/24/2023 12:00 AM EDT) Swab Cervical swab / Unknown us Sumanth Nurse [facility] LAB CYTOLOGY ORDERABLES Final Result EXTERNAL LAB documented in this encounter Visit Diagnoses Not on filedocumented in this encounter Care Teams Spray Gun Repairer Relationship Specialty Start Date End Date Hansa Gan PA [address] [place] [address] [place] [address] PCP - [facility] 04/14/24 Gene Narvaez MD [address] [facility] [place] [address] PCP - General Family Medicine 11/17/24 documented as of this encounter
--- OUTSIDE RECORDS SUMMARY | 2025-02-15 20:34 | XMS_ITS | Encounter Summary ---
Author Organization [id number] [address] [place] [address] Care Team Providers Care Electronic Design Engineer Name Role Phone Gene Narvaez MD Primary Care Provider + Reason for Visit * Reason Comments Med Refill Encounter Details Date Type Department Care Team (Late st Contact Info) Description 10/28/2022 Refill [facility] [address] [place] [address] Zana Friedman MD PhD [address] [place] [address] RETIRED 02/12/2024 [place] [address] Chronic mucoid otitis media of right ear Social History Tobacco Use Types Packs/Day Years [...] on file Sexual Orientation Not on file COVID-19 Exposure Response Date Recorded In the last month, have you been in contact with someone who was confirmed or suspected to have Coronavirus / COVID-19? No / Unsure 10/03/2022 9:51 AM EDT documented as of this encounter Plan of Treatment Not on file documented as of this encounter Visit Diagnoses Diagnosis Chronic mucoid otitis media of right ear documented in this encounter Care Teams Electronic Design Engineer Relationship Specialty Start Date End Date Gene Narvaez MD PCP - General 11/15/16 documented as of this encounter
--- OUTSIDE RECORDS SUMMARY | 2025-02-15 20:34 | XMS_ITS | Encounter Summary ---
Author Organization [facility] Address [address] [facility] [place] [address] Care Team Providers Care Ornamental Iron Worker Name Role Phone Hansa Gan Unavailable Gene Narvaez MD Primary Care Provider [phone] Encounter Details Date Type Department Care Team (Late Contact Info) Description 04/23/2023 Abstract TREVIN SCOTT [address] [place] [phone] Hansa Gan PA [address] [facility] [address] [place], [place] [address] Social History Tobacco Use Types Packs/Day Years [...] PM EDT Procedure Visit TREVIN SCOTT [address] [facility] [place] [phone] Hansa Gan PA [address] [place], [facility]11 documented as of this encounter Visit Diagnoses Not on filedocumented in this encounter Care Teams Ornamental Iron Worker Relationship Specialty Start Date End Date Hansa Gan PA [address] [place], [facility]11 PCP - [facility] 04/14/24 Gene Narvaez MD [address] [place] [phone] PCP - General Family Medicine 11/17/24 documented as of this encounter
--- OUTSIDE RECORDS SUMMARY | 2025-02-15 20:34 | XMS_ITS | Encounter Summary ---
Author Organization [facility] Address [address] [place] [address] Care Team Providers Care Physical Medicine Physician Name Role Phone Hansa Gan Unavailable Gene Naravez MD Primary Care Provider [phone] Encounter Details Date Type Department Care Team (Late Contact Info) Description 02/15/2025 Bamboo flowsheet TREVIN SCOTT [address] [facility] [place] [phone] Hansa Gan PA [address] [facility] [address] [place], [place] [address] Social History Tobacco Use Types Packs/Day Years [...] PM EDT Procedure Visit TREVIN SCOTT [address] [place] [phone] Hansa Gan PA [address] [facility] [address] [place], [place] [address] documented as of this encounter Visit Diagnoses Not on filedocumented in this encounter Care Teams Physical Medicine Physician Relationship Specialty Start Date End Date Hansa Gan PA [address] [place], [facility] PCP - [facility] 04/14/24 Gene Nravaez MD [address] [place] [address] PCP - General Family Medicine 11/17/24 documented as of this encounter
--- OUTSIDE RECORDS SUMMARY | 2025-02-15 20:34 | XMS_ITS | Encounter Summary ---
Author Organization [facility] Address [address] [facility] [place] [address] Care Team Providers Care Batch Freezer Operator Name Role Phone Hansa Gan Unavailable Gene Narvaez MD Primary Care Provider [phone] Encounter Details Date Type Department Care Team (Late Contact Info) Description 06/04/2023 Clinisync Result Encounter NOMS External Department Unsolicited Mario Julio DO [address] [facility] [address] [place], [facility] Social History Tobacco Use Types Packs/Day Years [...] PM EDT Procedure Visit NOMMely SCOTT [address] [facility] [place] [address] Hansa Gan PA [address] [facility] [address] [place], [place] [address] documented as of this encounter Procedures Procedure Name Priority Date/Time Associated Diagnosis Comments MAMMO POST BIOPSY RIGHT 06/04/2023 1:49 PM EST documented in this encounter Results * MAMMO POST BIOPSY RIGHT (06/04/2023 1:49 PM EST) Anatomical Region Laterality Modality Other 06/04/2023 1:49 PM EST Narrative 06/04/2023 1:49 [place] [address] Mammography Report Signed Patient: NICOLETTE GOODEN MR#: [id number] : 1980 Acct:[id number] Age/Sex: 43 / F ADM Date: 06/04/23 Loc: US Attending Dr: Mario Julio D.O. Ordering Physician: Mario Julio D.O. Results: Date of Service: 06/04/23 Follow Up: Procedure(s): MM post biopsy RT Accession Number(s): [id number] cc: Mario Julio D.O.; Gene Narvaez M.D. Patient Name: NICOLETTE GOODEN MR#: [id number] : 1980 Exam Date: 06/04/2023 Ordering Doctor: DR Mario Julio . RADIOLOGY REPORT PROCEDURE: MM POST BIOPSY RT COMPARISON: MM TOMOSYNTHESIS DIAGNOSTIC RT, 05/24/2023. MM TOMOSYNTHESIS SCREENING BI, 05/07/2023. INDICATIONS: Breast Mass BREAST COMPOSITION: FINDINGS: BIOPSY MARKER: A metallic marker has been placed in the targeted location within the posterior lower inner quadrant of the right breast. BREAST FINDINGS: Expected post biopsy findings. RECOMMENDATIONS: Dictated by: Ridge Watson M.D. on 06/04/2023 at 13:35 Approved by: Ridge Watson M.D. on 06/04/2023 at 13:49 Dictated By: Ridge Watson M.D. Signed By: 06/04/23 1350 DD/ 1349 TD/TT: Pharmacovigilance Specialist: Procedure Note Radiology, Radiologist, MD - 06/05/2023 [place] [address] Mammography Report Signed Patient: NICOLETTE GOODEN RMR#: [id number] : 1980Acct:[id number] Age/Sex: 43 / FADM Date: 11/21/23 Loc: US Attending Dr: Mario Julio D.O. Ordering Physician: Mario Julio D.O.Results: Date of Service: 06/04/23Follow Up: Procedure(s): MM post biopsy RT Accession Number(s): [id number] cc: Mario Julio D.O.; Gene Narvaez M.D. Patient Name: NICOLETTE GOODEN MR#: [id number] : 1980 Exam Date: 06/04/2023 Ordering Doctor: DR Mario Julio . RADIOLOGY REPORT PROCEDURE: MM POST BIOPSY RT COMPARISON: MM TOMOSYNTHESIS DIAGNOSTIC RT, 05/24/2023. MMTOMOSYNTHESIS SCREENING BI, 05/07/2023. INDICATIONS: Breast Mass BREAST COMPOSITION: FINDINGS: BIOPSY MARKER: A metallic marker has been placed in the targetedlocation within the posterior lower inner quadrant of the right breast. BREAST FINDINGS: Expected post biopsy findings. RECOMMENDATIONS: Dictated by: Ridge Watson M.D. on 06/04/2023 at 13:35 Approved by: Ridge Watson M.D. on 06/04/2023 at 13:49 Dictated By: Ridge Watson M.D. Signed By:06/04/23 1350 DD/ 1349 TD/TT: Pharmacovigilance Specialist: Mario Julio DO [facility] Final Result documented in this encounter Visit Diagnoses Not on filedocumented in this encounter Care Teams Batch Freezer Operator Relationship Specialty Start Date End Date Hansa Gan PA [address] [place] [address] [place] [address] PCP - [facility] 04/14/24 [place] [address] [place] [address] [place] [address] PCP - General Family Medicine 11/17/24 documented as of this encounter
--- OUTSIDE RECORDS SUMMARY | 2025-02-15 20:34 | XMS_ITS | Encounter Summary ---
Author Organization [facility] Address [address] [place] [address] Care Team Providers Care Masonry Instructor Name Role Phone Hansa Gan Unavailable Gene Narvaez MD Primary Care Provider [phone] Encounter Details Date Type Department Care Team (Late Contact Info) Description 06/04/2023 Clinisync Result Encounter NOMS External Department Unsolicited Jeremy Julio DO [address] [facility] [address] [place], [facility] Social History Tobacco Use Types Packs/Day Years [...] PM EDT Procedure Visit NOMMely SCOTT [address] [facility] [place] [phone] Hansa Gan PA [address] [facility] [address] [place], [facility]11 documented as of this encounter Procedures Procedure Name Priority Date/Time Associated Diagnosis Comments US VAC ASST BX BREAST RT W CLIP 06/04/2023 12:06 PM EST documented in this encounter Results * US VAC ASST BX BREAST RT W CLIP (06/04/2023 12:06 PM EST) Anatomical Region Laterality Modality Radiographic Ruth ging 06/04/2023 12:0 6 PM EST Narrative 06/04/2023 12:06 PM EST [address] [address] Ultrasound Report Signed Patient: NICOLETTE GOODEN MR#: [id number] : 1980 Acct:[id number] Age/Sex: 43 / F ADM Date: 06/04/23 Loc: US Attending Dr: Jeremy Julio D.O. Ordering Physician: Jeremy Julio D.O. Date of Service: 06/04/23 Procedure(s): US breast vac bx w/ clip RT Accession Number(s): [id number] cc: Jeremy Julio D.O.; Gene Narvaez M.D. [place] [id number] Patient Name: NICOLETTE GOODEN MRN: [id number] date: 1980 Sex: F Assigned Patient Location: US Current Patient Location: US Accession/Order Number: [id number] Exam Date: 06/04/2023 11:25 Report Date: 06/04/2023 12:06 At the request of: JEREMY JULIO Procedure: US breast vac bx w/ clip RT EXAM: US breast vac bx w/ clip RT HISTORY: Right Breast Mass COMPARISON: Ultrasound breast right Limited 05/24/2023 TECHNIQUE: After obtaining informed consent, ultrasound-guided biopsy was performed in the usual sterile manner. The location of the biopsy was then marked as indicated below. FINDINGS: Specimen #, Location: 3 core samples; right breast 4:00 hypoechoic mass versus complex cyst. Biopsy Needle: 13 gauge vacuum core biopsy needle. Marker(s): A single metallic marker was placed in the appropriate targeted location. Medication: Buffered 1% Lidocaine with epinephrine administered locally. Complications: None. Pathology: Pending. US/US breast vac bx w/ clip RT IMPRESSION: 1. Uneventful ultrasound-guided breast biopsy. 2. Pathology results are pending. An addendum to this report will be provided after pathology results are available. Electronically authenticated by: RIDGE WATSON Date: 06/04/2023 12:06 Dictated By: Ridge Watson M.D. Signed By: 06/04/23 1208 DD/ 05 TD/TT: Inspector And Adjuster Golf Club Head: Procedure Note Radiology, Radiologist, - 06/04/2023 [place] [address] Ultrasound Report Signed Patient: NICOLETTE GOODEN RMR#: [id number] : 1980Acct:[id number] Age/Sex: 43 / FADM Date: 06/04/23 Loc: US Attending Dr: Jeremy Julio D.O. Ordering Physician: Jeremy Julio D.O. Date of Service: 06/04/23 Procedure(s): US breast vac bx w/ clip RT Accession Number(s): [id number] cc: Jeremy Julio D.O.; Gene Narvaez M.D. [place] [id number] Patient Name: NICOLETTE GOODEN MRN: [id number] date: 1980 Sex: F Assigned Patient Location: US Current Patient Location: US Accession/Order Number: [id number] Exam Date: 06/04/2023 11:25 Report Date: 06/04/2023 12:06 At the request of: JEREMY JULIO Procedure: US breast vac bx w/ clip RT EXAM: US breast vac bx w/ clip RT HISTORY: Right Breast Mass COMPARISON: Ultrasound breast right Limited 05/24/2023 TECHNIQUE: After obtaining informed consent, ultrasound-guided biopsy was performed in the usual sterile manner. The location of the biopsy was then marked as indicated below. FINDINGS: Specimen #, Location: 3 core samples; right breast 4:00 hypoechoic massversus complex cyst. Biopsy Needle: 13 gauge vacuum core biopsy needle. Marker(s): A single metallic marker was placed in the appropriate targeted location. Medication: Buffered 1% Lidocaine with epinephrine administered locally. Complications: None. Pathology: Pending. US/US breast vac bx w/ clip RT IMPRESSION: 1. Uneventful ultrasound-guided breast biopsy. 2. Pathology results are pending. An addendum to this report will be provided after pathology results are available. Electronically authenticated by: RIDGE WATSON Date: 06/04/2023 12:06 Dictated By: Ridge Watson M.D. Signed By:06/04/23 1208 DD/ 1206 TD/TT: Inspector And Adjuster Golf Club Head: us Jeremy Julio DO IMG XR PROCEDURES Final Result documented in this encounter Visit Diagnoses Not on filedocumented in this encounter Care Teams Masonry Instructor Relationship Specialty Start Date End Date Hansa Gan PA [address] [place] [address] [place] [address] PCP - [facility] 04/14/24 Gene Narvaez MD [address] [facility] [place] [address] PCP - General Family Medicine 11/17/24 documented as of this encounter
--- OUTSIDE RECORDS SUMMARY | 2025-02-15 20:34 | XMS_ITS | Clinical Summary ---
Author Organization [employer] Address [id number] [address] [place] [address] Care Team Providers Care Lockstitch Front Edge Tape Sewer Name Role Phone Gene Narvaez MD Primary Care Provider + Allergies No known active allergies Medications mupirocin (BACTROBAN) 2 % ointmentIndicat ions:Nasal dryness Apply 1 application topically 3 (three) times a day. Apply to anterior nares b.i.d. 22 g 3 2 Active Additional Information Patient not taking.Reported on 10/03/2022 buprenorphine-n aloxone (SUBOXONE) 2-0.[address] tablet [address] 1 tablet under the tongue in the morning and 1 tablet before bedtime. 1 tab in the morning, half a tab in the evening. Active lamoTRIgine (LaMICtal) 100 mg tablet Take 1 tablet (100 mg total) by mouth. 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 30 each 3 Active Active Problems Problem Noted Date Diagnosed Date S/P tympanoplasty 06/21/2022 Overview (06/21/2022): Right ear Velopharyngeal insufficiency, acquired 2 Perforation of left tympanic membrane 02/08/2022 Hoarseness 09/22/2018 Throat pain 09/22/2018 Bilateral hearing loss 12/18/2016 Subacute sinusitis 12/18/2016 Dysfunction of both eustachian tubes 11/15/2016 Nasal septum perforation 11/15/2016 Resolved Problems Problem Noted Date Diagnosed Date Resolved Date Left otitis media 02/09/2019 02/08/2022 Cerumen debris on tympanic m embrane of right ear 11/24/2018 02/08/2022 Fluid level behind tympanic membrane of right ear 12/18/2017 12/31/2017 Immunizations Immunization Administration Dates Next Due Rho (D) Immune Globulin 08/04/2019 Family History Medical History Relation Name Comments Hyperlipidemia Father Hypertension Father Arthritis Mother Thyroid disease Mother Stroke Paternal Grandfather Cervical cancer Paternal Grandmother Relation Name Status Comments Father Alive Mother Alive Paternal Grandfather Paternal Grandmother Social History Tobacco Use Types Packs/Day Years Used Date Smoking Tobacco: Every Day Cigarettes Smokeless Tobacco: Never Tobacco Cessation:Ready to Q uit: Not Asked; Counseling Given: Not Answered Alcohol Use Standard Drinks/Week Comments Not Currently 0 (1 standard drink = 0.6 oz pur e alcohol) former Childcare Answer Date Recorded Childcare Unknown 12/24/2018 Employment Answer Date Recorded Employment Unknown 12/24/2018 Hunger Screening Answer Date Recorded Within the past 12 months we worried whether our food would run out before we got money to buy more. Never True 12/12/2022 Within the past 12 months th e food we bought just didn't last and we didn't have money to get more. Never True 12/12/2022 Purpose - Life Answer Date Recorded Purpose and direction in life Unknown Comments No Sex and Gender Information Value Date Recorded Sex Assigned at Not on file Legal Sex Female 11:55 AM EDT Gender Identity Not on file Sexual Orientation Not on file Last Filed Vital Signs Vital Sign Reading Time Taken Comments Blood Pressure 114/81 05/31/2022 1:17 PM EST Pulse 70 10/31/2022 10:53 AM EDT Temperature 37 C (98.6 F) 11/14/2022 11:41 AM EDT Respiratory Rate 10 05/31/2022 1:17 PM EST Oxygen Saturation 100% 05/31/2022 1:17 PM EST Inhaled Oxygen Concentration - - Weight 59 kg (130 lb) 12/12/2022 10:15 AM EDT Height 165.1 cm (5' 5 ) 12/12/2022 10:15 AM EDT Body Mass Index 21.63 12/12/2022 10:15 AM EDT Plan of Treatment Health Maintenance Due Date Last Done Comments Depression Screening 1994 Tobacco Screening 1994 DTaP,Tdap and Td Vaccines (1 - Tdap) 2001 Pap Smear 2003 Adult BMI Screening 12/13/2023 12/12/2022 Influenza Vaccine 03/15/2025 Medical Devices Implanted Type Area Heel Cutter Device Identifier Shelf Expiration Date Model / Serial / Lot Matrix Tiss 4x2cm Aldrm Slct Thk.3-.8mm Thn Dereje Ea=1 Sheet=8 Cm2 [facility] [id number] - [id number] - [id number] Implanted:Qty : 8 on 05/31/2022 by Zana Friedman MD PhD at [facility] Graft Right: Ear [employer] 04/13/2023 [id number] / [id number] / [id number] Tb Vnt Spat 1.08r53su Mercedes 5pk - Sna - [id number] Implanted:Qty : 1 on 12/19/2017 by Zana Friedman MD PhD at [facility] Other Implant Right: Ear [facility] 11/03/2025 [id number] / [id number] / [id number] Insurance [place] [employer] Care Teams Lockstitch Front Edge Tape Sewer Relationship Specialty Start Date End Date Gene Narvaez MD [facility] - General 11/15/16
--- OUTSIDE RECORDS SUMMARY | 2025-02-15 20:34 | XMS_ITS | Encounter Summary ---
Author Organization [facility] Address [address] [place] [address] Care Team Providers Care Disability Insurance Hearing Officer Name Role Phone Hansa Gan Unavailable Gene Narvaez MD Primary Care Provider [phone] Encounter Details Date Type Department Care Team (Late Contact Info) Description 06/04/2023 Clinisync Result Encounter [facility] External Department Unsolicited Jeremy Julio DO [address] [facility] [address] [place], [id number] Social History Tobacco Use Types Packs/Day Years [...] PM EDT Procedure Visit NOMMely SCOTT [address] [place] [phone] Hansa Gan PA [address] [facility] [address] [place], [id number] documented as of this encounter Procedures Procedure Name Priority Date/Time Associated Diagnosis Comments US VAC ASST BX BREAST RT W CLIP 06/04/2023 12:06 PM EST documented in this encounter Results * US VAC ASST BX BREAST RT W CLIP (06/04/2023 12:06 PM EST) Anatomical Region Laterality Modality Radiographic Ruth ging 06/04/2023 12:0 6 PM EST Narrative 02/04/2024 10:45 AM EDT The [place] [id number] Ultrasound Report Signed with Addhank Patient: NICOLETTE GOODEN MR#: [id number] : 1980 Acct:[id number] Age/Sex: 43 / F ADM Date: 06/04/23 Loc: US Attending Dr: Jeremy Julio D.O. Ordering Physician: Jeremy Julio D.O. Date of Service: 06/04/23 Procedure(s): US breast vac bx w/ clip RT Accession Number(s): [id number] cc: Jeremy Julio D.O.; Gene Narvaez M.D. ADDENDUM The [address] [address] Patient Name: NICOLETTE GOODEN MRN: [id number] date: 1980 Sex: F Assigned Patient Location: US Current Patient Location: US Accession/Order Number: [id number] Exam Date: 06/04/2023 11:25 Report Date: 06/12/2023 15:53 At the request of: JEREMY JULIO Procedure: US breast vac bx w/ clip RT Begin Addendum #1 COLLECTED DATE/TIME: 06/04/2023 11:48 EST Final Diagnosis Report for [facility] [place] RIGHT BREAST MASS, 4 O'CLOCK, ULTRASOUND GUIDED CORE BIOPSY: -BREAST PARENCHYMA WITH FIBROADENOMATOID CHANGE. -NEGATIVE FOR MALIGNANCY. 06/11/[address] Julio. Verified with Camila that report was present in office. Original Report EXAM: US breast vac bx w/ clip [...] epinephrine administered locally. Complications: None. Pathology: Pending. Addendum Dictated By: Ridge Watson M.D. Addendum Signed By: <Electronically signed by Ridge Watson M.D.> 02/04/24 1045 Addendum Cosigned By: DD/ TD/TT: / ADDENDUM US/US breast vac bx w/ clip RT IMPRESSION: 1. Uneventful ultrasound-guided breast biopsy. 2. Pathology results are pending. An addendum to this report will be provided after pathology results are available. Electronically authenticated by: RIDGE WATSON Date: 06/12/2023 15:53 Addendum Dictated By: Ridge Watson M.D. Addendum Signed By: <Electronically signed by Ridge Watson M.D.> 02/04/24 1045 Addendum Cosigned By: DD/ TD/TT: / [place] [id number] Patient Name: NICOLETTE GOODEN MRN: [id number] date: 1980 Sex: F Assigned Patient Location: US Current Patient Location: US Accession/Order Number: [id number] Exam Date: 06/04/2023 11:25 Report Date: 06/04/2023 [...] Watson M.D. Signed By: 06/04/23 1208 DD/ 1206 TD/TT: Acidity Tester: Procedure Note Radiology, Radiologist, MD - 02/04/2024 [place] [address] Ultrasound Report Signed with Addenda Patient: NICOLETTE GOODEN RMR#: [id number] : 1980Acct:[id number] Age/Sex: 43 / FADM Date: 06/04/23 Loc: US Attending Dr: Jeremy Julio D.O. Ordering Physician: Jeremy Julio D.O. Date of Service: 06/04/23 Procedure(s): US breast vac bx w/ clip RT Accession Number(s): [id number] cc: Jeremy Julio D.O.; Gene Narvaez M.D. ADDENDUM The [place] [id number] Patient Name: NICOLETTE GOODEN MRN: [facility]:[id number] date: 1980 Sex: F Assigned Patient Location: US Current Patient Location: US Accession/Order Number: [id number] Exam Date: 06/04/2023 11:25 Report Date: 06/12/2023 15:53 At the request of: JEREMY JULIO Procedure: US breast vac bx w/ clip RT Begin Addendum #1 COLLECTED DATE/TIME: 06/04/2023 11:48 EST Final Diagnosis Report for [facility] [place] RIGHT BREAST MASS, 4 O'CLOCK, ULTRASOUND GUIDED CORE BIOPSY: -BREAST PARENCHYMA WITH FIBROADENOMATOID CHANGE. -NEGATIVE FOR MALIGNANCY. 06/11/[address] Julio. Verified with Camila that report waspresent in office. Original Report EXAM: US breast vac bx w/ clip [...] epinephrine administered locally. Complications: None. Pathology: Pending. Addendum Dictated By: Ridge Watson M.D. Addendum Signed By: <Electronically signed by Ridge Watson M.D.> 02/04/24 1045 Addendum Cosigned By: DD/ TD/TT: / ADDENDUM US/US breast vac bx w/ clip RT IMPRESSION: 1. Uneventful ultrasound-guided breast biopsy. 2. Pathology results are pending. An addendum to this report will be provided after pathology results are available. Electronically authenticated by: RIDGE WATSON Date: 06/12/2023 15:53 Addendum Dictated By: Ridge Watson M.D. Addendum Signed By: <Electronically signed by Ridge Watson M.D.> 02/04/24 1045 Addendum Cosigned By: DD/ TD/TT: / [address] [address] Patient Name: NICOLETTE GOODEN MRN: [id number] date: 1980 Sex: F Assigned Patient Location: US Current Patient Location: US Accession/Order Number: [id number] Exam Date: 06/04/2023 11:25 Report Date: 06/04/2023 [...] M.D. Signed By:06/04/23 1208 DD/ 1206 TD/TT: Acidity Tester: us Jeremy Julio DO IMG XR PROCEDURES Final Result documented in this encounter Visit Diagnoses Not on filedocumented in this encounter Care Teams Disability Insurance Hearing Officer Relationship Specialty Start Date End Date Hansa Gan PA [address] [place] [address] [place] [address] PCP - [facility] 04/14/24 Gene Narvaez MD [address] [facility] [place] [address] PCP - General Family Medicine 11/17/24 documented as of this encounter
--- OUTSIDE RECORDS SUMMARY | 2025-02-15 20:34 | XMS_ITS | Encounter Summary ---
Author Organization [facility] Address [address] [place] [address] Care Team Providers Care Flight Data Technician Name Role Phone Hansa Gan Unavailable Gene Narvaez MD Primary Care Provider [phone] Encounter Details Date Type Department Care Team (Late Contact Info) Description 05/24/2023 Clinisync Result Encounter [facility] External Department Unsolicited Hansa Gan PA [address] [facility] [address] [place], [facility]11 Social History Tobacco Use Types Packs/Day Years [...] 02/17/2026 2:00 PM EDT Procedure Visit NOMMely Pink [facility] [address] [facility] [place] [phone] Hansa Gan PA [address] [facility] [facility] [address] [facility] [address] [place], [place] [address] documented as of this encounter Procedures Procedure Name Priority Date/Time Associated Diagnosis Comments BI US BREAST LIMITED RIGHT 05/24/2023 2:54 PM EST documented in this encounter Results * Right breast US limited (05/24/2023 2:54 PM EST) Anatomical Region Laterality Modality Breast Right Ultrasound 05/24/2023 2:54 PM EST Narrative 05/24/2023 2:54 [place] [address] Ultrasound Report Signed Patient: NICOLETTE GOODEN MR#: [id number] : 1980 Acct:[id number] Age/Sex: 43 / F ADM Date: 05/24/23 Loc: MAMMO Attending Dr: Hansa Gan Ordering Physician: Hansa Gan Date of Service: 05/24/23 Procedure(s): US breast RT limited Accession Number(s): [id number] cc: Hansa Gan; Gene Narvaez M.D. Patient Name: NICOLETTE GOODEN MR#: [id number] : 1980 Exam Date: 05/24/2023 Ordering Doctor: [...] Treatments None Family Cancers None LOCATION: The [facility] BREAST COMPOSITION: Extremely dense, which lowers [...] Signed By: 05/24/23 1455 DD/ 1454 TD/TT: Retail Wireless Sales Consultant: Procedure Note Radiology, Radiologist, MD - 05/24/2023 [place] [address] Ultrasound Report Signed Patient: NICOLETTE GOODEN RMR#: [id number] : 1980Acct:[id number] Age/Sex: 43 / FADM Date: 05/24/23 Loc: MAMMO Attending Dr: Hansa Gan Ordering Physician: Hansa Gan Date of Service: 05/24/23 Procedure(s): US breast RT limited Accession Number(s): [id number] cc: Hansa Gan; Gene Narvaez M.D. Patient Name: NICOLETTE GOODEN MR#: [id number] : 1980 Exam Date: 05/24/2023 Ordering Doctor: [...] Treatments None Family Cancers None LOCATION: The [facility] BREAST COMPOSITION: Extremely dense, which lowers [...] M.D. Signed By:05/24/23 1455 DD/ 53 TD/TT: Retail Wireless Sales Consultant: us Hansa ROBLES IMG US PROCEDURES Final Result documented in this encounter Visit Diagnoses Not on filedocumented in this encounter Care Teams Flight Data Technician Relationship Specialty Start Date End Date Hansa Gan PA [address] [place] [address] [place] [address] PCP - [facility] 04/14/24 Gene Narvaez MD [address] [facility] [place] [place] [address] PCP - General Family Medicine 11/17/24 documented as of this encounter
--- OUTSIDE RECORDS SUMMARY | 2025-02-15 20:35 | XMS_ITS | Encounter Summary ---
Author Organization [facility] Address [address] [email or web address] [address] Care Team Providers Care Metal Rolling Mill Operator Name Role Phone Hansa Gan Unavailable Gene Narvaez MD Primary Care Provider [phone] Encounter Details Date Type Department Care Team (Late Contact Info) Description 05/08/2023 Clinisync Result Encounter [facility] External Department Unsolicited Hansa Gan PA [address] [facility] [address] [place], [id number] Social History Tobacco Use Types Packs/Day Years [...] PM EDT Procedure Visit NOMMely SCOTT [address] [facility] [place] [address] Hansa Gan PA [address] [facility] [address] [place], [facility] documented as of this encounter Procedures Procedure Name Priority Date/Time Associated Diagnosis Comments MM TOMOSYNTHESIS SCREENING BI 05/08/2023 1:42 PM EDT documented in this encounter Results * MM TOMOSYNTHESIS SCREENING BI (05/08/2023 1:42 PM EDT) Anatomical Region Laterality Modality Other 05/08/2023 1:4 2 PM EDT Narrative 05/08/2023 1:42 PM EDT [address] [address] Mammography Report Signed Patient: Nicoeltte Salgado MR#: [id number] : 1980 Acct:[id number] Age/Sex: 42 / F ADM Date: 05/07/23 Loc: MAMMO Attending Dr: Hansa Gan Ordering Physician: Hansa Gan Results: Date of Service: 05/07/23 Follow Up: Procedure(s): MM tomosynthesis screening BI Accession Number(s): [id number] cc: Hansa Gan; Gene Narvaez M.D. Patient: NICOLETTE SALGADO Exam Date: 05/07/2023 : 1980 Gender:F Ordering : TRAVIS Gan . Admission #: [id number] Family : DR Gene Narvaez . Order #: [id number] CLICK HERE TO VIEW EXAM RADIOLOGY REPORT PROCEDURE: MM TOMOSYNTHESIS SCREENING BI COMPARISON: None. INDICATIONS: Screening Calculator Name NCI Breast Cancer Risk Assessment Tool 5 Year Breast Cancer Risk 0.50% Lifetime Breast Cancer Risk 9.00% Personal Breast Cancer No Personal Ovarian Cancer No Treatments None Family Cancers None LOCATION: The [facility] BREAST COMPOSITION: Extremely dense, which lowers the sensitivity of mammography. FINDINGS: DIAGNOSTIC CATEGORY 0--INCOMPLETE: NEED ADDITIONAL IMAGING EVALUATION. RIGHT BREAST: 2 cm asymmetry within the posterior upper-outer quadrant. 1.5 cm mass versus cyst within posterior lower-inner quadrant. Spot magnification views and ultrasound evaluation recommended. LEFT BREAST: No significant suspicious finding. RECOMMENDATIONS: ADDITIONAL MAMMOGRAPHIC VIEWS REQUIRED: RIGHT BREAST - RIGHT CRANIOCAUDAL SPOT MAGNIFICATION VIEW - RIGHT OBLIQUE SPOT MAGNIFICATION VIEW - ULTRASOUND: RIGHT BREAST PLEASE NOTE: A NORMAL MAMMOGRAM DOES NOT EXCLUDE THE POSSIBILITY OF BREAST CANCER. A CLINICALLY SUSPICIOUS PALPABLE LUMP SHOULD BE BIOPSIED. Dictated by: Ridge Watson M.D. on 05/08/2023 at 13:36 Approved by: Rigde Watson M.D. on 05/08/2023 at 13:42 Dictated By: Ridge Watson M.D. Signed By: 05/08/233 DD/ 41 TD/TT: Radiology Receptionist: Procedure Note Radiology, Radiologist, MD - 05/08/2023 [place] [address] Mammography Report Signed Patient: Nicolette Salgado RMR#: [id number] : 1980Acct:[id number] Age/Sex: 42 / FADM Date: 05/07/23 Loc: MAMMO Attending Dr: Hansa Gan Ordering Physician: Hansa Popeults: Date of Service: 05/07/23Follow Up: Procedure(s): MM tomosynthesis screening BI Accession Number(s): [id number] cc: Hansa Gan; Gene Narvaez M.D. Patient: NICOLETTE SALGADO Exam Date: 05/07/2023 : 1980 Gender:F Ordering : TRAVIS Gan . Admission #: [id number] Family : DR Gene Narvaez . Order #: [id number] CLICK HERE TO VIEW EXAM RADIOLOGY REPORT PROCEDURE: MM TOMOSYNTHESIS SCREENING BI COMPARISON: None. INDICATIONS: Screening Calculator Name NCI Breast Cancer Risk Assessment Tool 5 Year Breast Cancer Risk 0.50% Lifetime Breast Cancer Risk 9.00% Personal Breast Cancer No Personal Ovarian Cancer No Treatments None Family Cancers None LOCATION: The [facility] BREAST COMPOSITION: Extremely dense, which lowers the sensitivity of mammography. FINDINGS: DIAGNOSTIC CATEGORY 0--INCOMPLETE: NEED ADDITIONAL IMAGING EVALUATION. RIGHT BREAST: 2 cm asymmetry within the posterior upper-outer quadrant.1.5 cm mass versus cyst within posterior lower-inner quadrant. Spotmagnification views and ultrasound evaluation recommended. LEFT BREAST: No significant suspicious finding. RECOMMENDATIONS: ADDITIONAL MAMMOGRAPHIC VIEWS REQUIRED: RIGHT BREAST - RIGHT CRANIOCAUDALSPOT MAGNIFICATION VIEW - RIGHT OBLIQUE SPOT MAGNIFICATION VIEW - ULTRASOUND: RIGHT BREAST PLEASE NOTE: A NORMAL MAMMOGRAM DOES NOT EXCLUDE THE POSSIBILITY OFBREAST CANCER. A CLINICALLY SUSPICIOUS PALPABLE LUMP SHOULD BE BIOPSIED. Dictated by: Ridge Watson M.D. on 05/08/2023 at 13:36 Approved by: Ridge Watson M.D. on 05/08/2023 at 13:42 Dictated By: Ridge Watson M.D. Signed By:05/08/23 1343 DD/ 41 TD/TT: Radiology Receptionist: us Hansa ROBLES [facility] Final Result documented in this encounter Visit Diagnoses Not on filedocumented in this encounter Care Teams Metal Rolling Mill Operator Relationship Specialty Start Date End Date Hansa Gan PA [address] [place] [address] [place] [address] PCP - [facility] 04/14/24 Gene Narvaez MD [address] [place] [address] [place] [address] PCP - General Family Medicine 11/17/24 documented as of this encounter
--- OUTSIDE RECORDS SUMMARY | 2025-02-15 20:36 | XMS_ITS | CCD ---
Author Organization [facility] Care Team Providers Care Certified Respiratory Therapist Name Role Phone Kenyatta Young Primary Care Physician [phone] Modesta Stewart Unavailable Unavailable Unavailable Primary Care Provider UnavailStephani Royal MD Unavailable [phone] Salma DSOUZA, Beth SGiovanna Unavailable MISC, DR BUSBY Consulting Unavailable MISC, DR BUSBY Attending Unavailable HECTOR, DR YOU Primary Care Unavailable MISC, DR BUSBY Admitting Unavailable HECTOR, DR YOU Admitting Unavailable HECTOR, DR YOU Primary Care Unavailable HECTOR, DR YOU Consulting Unavailable HECTOR, DR YOU Attending Unavailable Corinna Smith MD Unavailable Stephani Hobbs MD Unavailable Salma DSOUZA, Beth SGiovanna Unavailable [phone] Corinna Smith MD Unavailable PROVIDER, UNKNOWN Admitting Unavailable CORINNA SMITH Referring Unavailable PROVIDER, UNKNOWN Attending Unavailable PROVIDER, UNKNOWN Attending Unavailable PROVIDER, UNKNOWN Admitting Unavailable STEPHANI HOBBS Referring Unavailable PROVIDER, UNKNOWN Admitting Unavailable PROVIDER, UNKNOWN Attending Unavailable PROVIDER, UNKNOWN Admitting Unavailable PROVIDER, UNKNOWN Attending Unavailable PROVIDER, UNKNOWN Admitting Unavailable PROVIDER, UNKNOWN Attending Unavailable PROVIDER, UNKNOWN Attending Unavailable PATIENT, SELF Referring Unavailable PROVIDER, UNKNOWN Admitting Unavailable Salma DSOUZA, Beth SGiovanna Unavailable [phone] GINASBARBARACORONA Ty Attending Unavailable KENYATTA YOUNG Referring Unavailable Kenyatta Young MD Primary Care Provider Hansa Feldman Unavailable Timmis Corona H Admitting Unavailable Timmis Corona H Attending Unavailable Timmis Corona H Referring Unavailable Corona Robertson H Admitting Unavailable Corona Robertson H Attending Unavailable Corona Robertson Referring Unavailable Naeem Donis DO Attending Unavailable Hector DONG, Kenyatta Primary Care Unavailable Kenyatta Young MD Primary Care Provider [phone] Allergies Allergy Classification Reported Allergen(s) Allergy Type Date of Onset Reaction(s) Facility (1 source) No Known Medication Allergies; Translations: [No Known Medication Allergies] Propensity to adverse reactions (disorder) [facility] Repository Medications Current Medications Medication Drug [...] TABLET ONCE A DAY 0 07/23/2022 Active aspirin 325 mg / butalbital 50 mg / caffeine 40 mg oral capsule (2 sources) Platelet Aggregation Inhibitor, Barbiturate, Nonsteroidal Anti-inflammatory Drug, Central Nervous System Stimulant, Methylxanthine Start: 10-13-2024 take 1 capsule by mouth every six hours for pain ASA/butalbital/caf feine Cap 1 cap(s), Oral, q6hr for pain, Refill(s) 0 Start Date: 10/13/24 Status: Ordered Repeat number: 1 buprenorphine 8 mg sublingual tablet (11 sources) Partial Opioid Agonist Start: 10-13-2024 take 0.25 tablet under the tongue at bedtime buprenorphine 8 mg sublingual tablet 0.25 tab, SubLingual, Bedtime, 5 days/week, Refills(s) 0 Start Date: 10/13/24 Status: Ordered Repeat number: 1 Start: 10-13-2024 take 0.5 tablet unde r the tongue every other week at bedtime buprenorphine 8 mg sublingual tablet 0.5tab, SubLingual, Bedtime, 2 days/week, Refills(s) 0 Start Date: 10/13/24 Status: Ordered Repeat number: 1 Start: 03-16-2020 take 1 tablet under the tongue twice daily buprenorphine 8 mg sublingual tablet 8 mg = 1 tab(s), SubLingual, BID, Refills(s) 0 Start Date: 03/16/20 Status: Ordered Start: 03-16-2020 take 1 tablet under the tongue once daily buprenorphine 8 mg sublingual tablet 8 mg = 1 tab(s), SubLingual, Daily, Refills(s) 0 Start Date: 03/16/20 Status: Ordered Repeat number: 1 buprenorphine 8 mg / naloxone 2 mg sublingual film (20 sources) Partial Opioid Agonist, Opioid Antagonist Start: 03-27-2022 buprenorphine-naloxo ne (SUBOXONE) 8-2 MG FILM SL film DISSOLVE 1 FILM IN MOUTH IN THE MORNING AND 1/2 FILM IN THE EVENING 0 03/27/2022 Active cetirizine hydrochloride 5 mg chewable tablet (4 sources) Histamine-1 Receptor Antagonist cetirizine (ZyrTEC) 5 MG chewable tablet Chew Daily Active Nexplanon (7 sources) Progestin Start: 03-16-2020 Nexplanon See Instructions, as directed, Refills(s) 0 Start Date: 03/16/20 Status: Ordered Repeat number: 1 Start: 03-16-2020 Nexplanon See Instructions, as directed, Refills(s) 0 Start Date: 03/16/20 Status: Ordered etonogestrel-elu ting 68 mg contraceptive implant 1 each by Implant route 1 (one) time. Active fluticasone propionate 0.05 mg/actuat metered dose nasal spray (4 sources) Corticosteroid take 1 spray(s) nasal route once daily fluticasone (Flonase) 50 MCG/ACT nasal spray Administer 1 spray into each nostril Daily Shake gently. Before first use, prime pump. After use, clean tip and replace cap. Active lamoTRIgine 100 mg oral tablet (15 sources) Mood Stabilizer, Anti-epileptic Agent Start: 05-26-20 take 2 tablets by mouth once daily [...] NARES TWICE A DAY 0 03/21/2022 Active ofloxacin 3 mg/ml otic solution (1 source) Quinolone Antimicrobial Start: 10-15-2024 End: 10-22-2024 ofloxacin (Floxin) 0.3 % otic solution Indications: Perforation of left tympanic membrane Administer 4 drops into affected ear(s) in the morning and 4 drops before bedtime. Do all this for 7 days. 5 mL 10/15/2024 10/22/2024 Active OLANZapine 10 mg oral tablet (15 [...] Problem Date Documented Date Episodic/Chronic Abdominal hernia (19 sources) Umbilical hernia; Translations: [Umbilical hernia without obstruction or gangrene] Onset: 04-03-2022 Episodic Adjustment disorders (19 sources) Adjustment disorder with mixed disturbance of emotions AND conduct; Translations: [Adjustment disorder with mixed disturbance of emotions and conduct] Onset: 04-18-2022 04-18-2022 Chronic Alcohol-related disorders (7 sources) History of alcohol abuse; Translations: [Alcohol abuse, in remission] Onset: 10-05-2024 03-16-2020 Chronic Anxiety disorders (20 sources) Obsessive-compulsive disorder; Translations: [Panic attack] Onset: 04-18-2022 03-16-2020 Chronic Mood disorders (20 sources) Depressive disorder; Translations: [Bipolar affective disorder, currently manic, mild] Onset: 08-09-2021 03-16-2020 Chronic Nonmalignant breast conditions (2 sources) Fibroadenosis of right breast; Translations: [Fibroadenosis of right breast] 02-15-2025 Chronic Nonmalignant breast conditions (4 sources) Lump in upper outer quadrant of right breast; Translations: [Unspecified lump in the right breast, upper outer quadrant] 02-15-2025 Episodic Other ear and sense organ disorders (15 sources) Hearing loss of right ear; Translations: [Unspecified hearing loss, right ear] Onset: 12-18-2016 04-18-2022 Chronic Other ear and sense organ disorders (3 sources) Conductive hearing loss, unilateral, right ear, with unrestricted hearing on the contralateral side; Translations: [Conductive hearing loss, unilateral] Onset: 04-18-2022 Chronic Other ear and sense organ disorders (4 sources) Bilateral hearing loss; Translations: [Unspecified hearing loss, bilateral] Onset: 12-18-2016 10-05-2024 Chronic Other screening for suspected conditions (not mental disorders or infectious disease) (2 sources) Patient encounter status; Translations: [Encounter for screening mammogram for malignant neoplasm of breast] 02-15-2025 Episodic Residual codes; unclassified (3 sources) Tobacco user; Translations: [Tobacco use] Onset: 04-03-2022 Episodic Residual codes; unclassified (18 sources) Insomnia; Translations: [Insomnia, unspecified] Onset: 04-18-2022 03-01-2022 Episodic Residual codes; unclassified (1 source) Body mass index 20-24 - normal; Translations: [Body mass index (BMI) 22.0-22.9, adult] Episodic Screening and history of mental health and substance abuse codes (3 sources) Tobacco use and exposure - finding 04-03-2022 Chronic Substance-related disorders (20 sources) Buprenorphine dependence; Translations: [History of drug abuse] Onset: 04-18-2022 04-05-2020 Chronic Comment on above: Added secondary to d ocumentation in Social History. Unclassified (3 sources) Body mass index 20-24 - normal 04-03-2022 Past or Other Problems Problem Classification Problem Date Documented Date Episodic/Chronic Allergic reactions (20 sources) Eczema; Translations: [Dermatitis, unspecified] Onset: 04-18-2022 03-01-2022 Episodic Deficiency and other anemia (20 sources) Anemia; Translations: [Anemia, unspecified] Onset: 04-18-2022 03-16-2020 Episodic Diseases of mouth; excluding dental (20 sources) Acquired velopharyngeal insufficiency; Translations: [Other lesions of oral mucosa] Onset: 10-24-2015 Episodic Other aftercare (1 source) Other snf (current) drug therapy; Translations: [OTH ALF CURRENT DRUG THERAPY] Onset: 08-12-2021 Episodic Other complications of (4 sources) Abnormal findings on screening of mother; Translations: [Unspecified abnormal findings on screening of mother] Onset: 10-05-2024 10-05-2024 Episodic Other infections; including parasitic (20 sources) History of hepatitis C; Translations: [Personal history of other infectious and parasitic diseases] Onset: 04-18-2022 03-16-2020 Episodic Other skin disorders (20 sources) Acne vulgaris; Translations: [Acne vulgaris] Onset: 04-18-2022 03-01-2022 Episodic Other upper respiratory disease (15 sources) Acquired nasal septal defect; Translations: [Other specified disorders of nose and nasal sinuses] Onset: 10-24-2015 Episodic Other upper respiratory disease (19 sources) Deviated nasal septum; Translations: [Deviated nasal septum] Onset: 10-24-2015 10-24-2015 Episodic Other upper respiratory disease (19 sources) Hoarse; Translations: [Dysphonia] Onset: 09-22-2018 04-18-2022 [...] bilateral] Onset: 11-15-2016 Episodic Residual codes; unclassified (15 sources) Tobacco use and exposure - finding; Translations: [Tobacco use] Onset: 04-18-2022 04-18-2022 Episodic Results Test Name Value Interpretation Reference Range Facility Operative Reporton Operative Report Operative Report SURGERY DATE: 10/15/2024 PREOPERATIVE DIAGNOSIS: Right eustachian tube dysfunction POSTOPERATIVE DIAGNOSIS: Right eustachian tube dysfunction OPERATION: Right myringotomy and tube with microdissection and placement of a tympanostomy tube ANESTHESIA: General with laryngeal mask airway COMPLICATIONS: None FINDINGS: Right serous effusion INDICATIONS: This 44-year-old woman with a long history of chronic eustachian tube dysfunction presented with right otitis media with effusion unresponsive to medical management. PROCEDURE: Patient identified in the Holding Area and taken back to the Operating Room, where she was placed in a supine position. After induction of general anesthesia the right ear was approached with the otomicroscope, an anterior radial myringotomy was performed, and a modified [place] tympanostomy tube was folded and inserted through the myringotomy and opened in the middle ear using microdissection. The patient was then awakened and taken to the Recovery Room in good condition. Corona Robertson Jr., M.D. ca Dictated: 10/15/2024 [id number] Transcribed: 10/15/2024 cc:Kenyatta Young MD [facility] Comment on above: Result Comment: Elec tronically Signed By: Corona Robertson MD\.br\Date and Time Signed: 10/29/24 08:08 EDT Main OR Intraoperative Recor don 10-19-2024 Main OR Intraoperative Record Main OR Intraoperative Record IntraOp Document Type FT Summary Primary Physician: Corona Robertson MD Finalized Date/Time: 10/19/24 08:28:40 Pt. Name: KARINA SALGADO/Sex: 1980 Female Med Rec #: [id number] Physician: Corona Robertson MD Financial #: [id number] Pt. Type: A Room/Bed: Admit/Disch: 10/15/24 09:43:34 - 10/15/24 13:15:00 Institution: Case Times FT Entry 1 Patient Times In Room 10/15/24 11:27:00 Out Room 10/15/24 11:43:00 Procedure Times Start 10/15/24 11:33:00 Stop 10/15/24 11:39:00 Anesthesia Times Start 10/15/24 11:27:00 Stop 10/15/24 11:43:00 Last Modified By: Aimee Paige Ii 10/15/24 11:52:23 Case Attendance FT Entry 1 Entry 2 Entry 3 Case Attendee Osbaldo SUTTON, Yadi Robertson MD, Mckinley Mccall Role Performed CERTIFIED LOW VISION THERAPIST Surgeon - Primary Woodworking Machinist - Primary Time In 10/15/24 11:27:00 10/15/24 11:32:00 10/15/24 11:27:00 Time Out 10/15/24 11:43:00 10/15/24 11:43:00 10/15/24 11:30:00 Procedure MYRINGOTOMY W/ MYRINGOTOMY W/ MYRINGOTOMY W/ INSERTION OF INSERTION OF INSERTION OF TUBES(Right) TUBES(Right) TUBES(Right) Comments Last Modified By: Leigh Demarco CST, Alfons Ii F Letrondo, Alfons Ii F 10/19/24 08:27:26 10/15/24 11:57:46 10/15/24 11:57:46 Entry 4 Entry 5 Case Attendee Aimee Paige Ii, Madison A Role Performed Woodworking Machinist - Relief Scrub - Primary Time In 10/15/24 11:25:00 10/15/24 11:27:00 Time Out 10/15/24 11:43:00 10/15/24 11:43:00 Procedure MYRINGOTOMY W/ MYRINGOTOMY W/ INSERTION OF INSERTION OF TUBES(Right) TUBES(Right) Comments Last Modified By: Aimee Paige Ii, Alfons Ii F 10/15/24 11:57:46 10/15/24 11:57:46 Perioperative Protocols FT Pre-Care Text: Implements protective measures prior to operative or invasive procedure, confirms identity before the operative or invasive procedure, verifies operative procedure, surgical site, and laterality Entry 1 Procedure(s) MYRINGOTOMY W/ Patient Identity Birthday, ID Band INSERTION OF Verified (select at Check, Patient TUBES(Right) least 2): Participation Consents / H and P Anesthesia Consent, Operative Site N/A Verified H&P, Surgery/Procedure Marking Verified Consent Surgical Site Yes Laterality Verified Yes Verified Procedure Verified Yes Correct Patient Yes Position Verified Availability Equipment, Medication Prep Dry n/a Verified (If Applicable) PreOp Antibiotic No Time Out Yadi Roblero CRNA, Given Participants Corona Robertson MD, Aimee Paige Ii, [place], [place] A Time Out Complete 10/15/24 11:33:00 Outcomes Met? Yes Last Modified By: Aimee Paige Ii 10/15/24 11:54:13 Post-Care Text: The patient is free from signs and symptoms of injury caused by extraneous objects Allergy Information FT Pre-Care Text: Verifies allergies Entry 1 Allergies Reviewed? Yes Allergies Reviewed Self/Patient With Outcomes Met? Yes Last Modified By: Aimee Paige Ii 10/15/24 11:54:20 Post-Care Text: The patient received appropriate medication(s) safely administered during the perioperative period Surgical Procedures FT Entry 1 Procedure Description Procedure MYRINGOTOMY W/ Modifiers Right INSERTION OF TUBES Surgeon Description RIGHT MYRINGOTOMY WITH T-TUBE Primary Procedure Yes Primary Surgeon Corona Robertson MD Start 10/15/24 11:33:00 Stop 10/15/24 11:39:00 Anesthesia Type General Surgical Service ENT Wound Class 2 - Clean-Contaminated Last Modified By: Aimee Paige Ii 10/15/24 11:54:25 General Case Data FT Pre-Care Text: Classifies surgical wound, implements aseptic technique, initiates traffic control Entry 1 Case Information OR OR 2 FT Case Level Level 2 Wound Class 2 - Clean-Contaminated Specialty ENT ASA Class 2 Preop Diagnosis RIGHT EUSTACHIAN TUBE Postop Same As Preop Yes DYSFUNCTION Postop Diagnosis RIGHT EUSTACHIAN TUBE Outcomes Met? Yes DYSFUNCTION Last Modified By: Aimee Paige Ii 10/15/24 11:54:29 Post-Care Text: The patient is free from signs and symptoms of infection Skin Assessment (Pre Procedure) FT Pre-Care Text: Implements protective measures to prevent skin/ tissue injury due to thermal or mechanical sources Evaluates for signs and symptoms of physical injury to skin and tissue Entry 1 Skin Integrity Intact, [place], Warm, & Skin Abnormality No Dry Outcomes Met? Yes Last Modified By: Aimee Paige Ii 10/15/24 11:54:37 Post-Care Text: The patient is free from signs and symptoms of injury caused by extraneous objects Patient Positioning FT Pre-Care Text: Identifies physical alterations that require additional precautions for procedure-specific positioning, verifies presence of prosthetics or corrective devices, positions the patient, evaluates the patient for signs and symptoms of injury as a result of positioning Entry 1 Procedure MYRINGOTOMY W/ Body Position (more content not included)... Normal [facility] B hCG [place] 10-15-2024 Beta HCG ( test) Ql Negative Normal [facility] Comment on above: Performed By: #### [id number] ####[facility] [id number] [place] [address] Discharge Instructionson Discharge Instructions Discharge Instructions KARINA SALGADO :1980 Visit Date:10/15/2024 Inpatient Discharge Instructions Your Care Team Admitting Physician - Corona Robertson MD Referring Physician - Corona Robertson MD Reason for Your Visit RIGHT EUSTACHIAN TUBE DYSFUNCTION Your Diagnosis DYSFUNCTION OF EUSTACHIAN TUBE, DYSFUNCTION OF EUSTACHIAN TUBE This Is Your Medications List ASA/butalbital/caffein e (ASA/butalbital/caffei ne Cap) buprenorphine (buprenorphine 8 mg sublingual tablet) buprenorphine (buprenorphine 8 mg sublingual tablet) buprenorphine (buprenorphine 8 mg sublingual tablet) etonogestrel (Nexplanon) What to do next Instructions From Your Doctor Event Name Event Result Discharge Instructions Freetext Keep right ear dry 2 weeksCiprodex 4 drops in right ear twice daily for 5 days Discharge Activity Expect mild pain, Expect minimal amount of drainage and/or bleeding, Activity as tolerated Discharge Diet(s) Regular Discharge Instructions Discharge Instructions New Follow Up Appointments after Discharge Follow Up with Corona Robertson When: Comments: One month Medications What How Much When Instructions Next Dose Unchanged ASA/ butalbital/ caffeine (ASA/ butalbital/ caffeine Cap) 1 Capsules By Mouth Every 6 hours as needed for for pain Unchanged buprenorphine (buprenorphine 8 mg sublingual tablet) 0.25 tab Sublingual At bedtime 5 days/ week Unchanged buprenorphine (buprenorphine 8 mg sublingual tablet) 1 Tablets Sublingual Every day Unchanged buprenorphine (buprenorphine 8 mg sublingual tablet) 0.5tab Sublingual At bedtime 2 days/ week Unchanged etonogestrel (Nexplanon) See instructions as directed Test Results No qualifying data available. Allergies No Known Allergies No Known Medication Allergies Problems Ongoing - Any problem that you are currently receiving treatment for. Acne vulgaris Anemia BMI 21.0-21.9, adult Buprenorphine dependence Depression Eczema History of alcohol abuse History of hepatitis C History of heroin abuse Insomnia OCD (obsessive compulsive disorder) Opioid dependence Panic attack Smoker Tobacco use Umbilical hernia Education Materials Common Emergency Awareness Tips IS IT A STROKE? Act FAST and Check for these signs: FACE Does the face look uneven? ARM Does one arm drift down? SPEECH Does their speech sound strange? TIME Call at any sign of stroke Heart Attack Signs Chest discomfort: Most heart attacks involve discomfort in the center of the chest and lasts more than a few minutes, or goes away and comes back. It can feel like uncomfortable pressure, squeezing, fullness or pain. Discomfort in upper body: Symptoms can include pain or discomfort in one or both arms, back, neck, jaw or stomach. Shortness of breath: With or without discomfort. Other signs: Breaking out in a cold sweat, nausea, or lightheaded. Remember, MINUTES DO MATTER. If you experience any of these heart attack warning signs, call to get immediate medical attention! Patient Survey You may receive a survey in the mail asking you about your stay with us. We want to hear from you, please share your experience with us by completing your survey. Thank you for choosing [facility]. Luis Award Nomination The LUIS (Diseases Attacking the Immune SYstem) Award is an international recognition program that honors and celebrates the skillful, compassionate care nurses provide every day. Anyone who experiences or observes amazing care being provided by a nurse is encouraged to submit a nomination. To nominate your nurse, use your smart phone to scan the QR code below. Patient Portal You may access all of your results and other medical record information on our secure patient portal. If you are not signed up for this yet, please contact Health Information Management at [phone] to get signed up today. Patient Name: KARINA SALGADO I have received this information and my questions have been answered. Patient/Assembler Camper Name: Patient/Assembler Camper Signature: Relationship to Patient: Witness Name/Signature: Date: Normal [facility] Comment on above: Result Comment: Elec tronically Signed By: Wilbert DSOUZA, Wilda Urbina\.br\Date and Time Signed: 10/15/24 12:44 EDT Inpatient Patient Summaryon 10-15-2024 Inpatient Patient Summary Inpatient Patient Summary [place] [address] [facility] Clinical Discharge Instructions PERSON INFORMATION Name: KARINA SALGADO [facility]#:[id number] PHYSICIANS Admitting Physician: Harshil DONG, Corona Crawford Attending Physician: Corona Robertson MD PCP: Hoy Kenyatta DONG Discharge Diagnosis: DYSFUNCTION OF EUSTACHIAN TUBE Comment: PATIENT EDUCATION INFORMATION Instructions: Medication Leaflets: Follow up: With: Address: When: Corona Robertson Comments: One month MEDICATION LIST Medications to Continue with No Changes Other Medications ASA/butalbital/caffein e (ASA/butalbital/caffei ne Cap) 1 Capsules By Mouth every 6 hours as needed for pain. buprenorphine (buprenorphine 8 mg sublingual tablet) 0.25 tab Sublingual at bedtime. 5 days/week. buprenorphine (buprenorphine 8 mg sublingual tablet) 1 Tablets Sublingual every day. buprenorphine (buprenorphine 8 mg sublingual tablet) 0.5tab Sublingual at bedtime. 2 days/week. etonogestrel (Nexplanon) as directed. Comment: [facility] Main OR PACU I Recordon Main OR PACU I Record Main OR PACU I Record PACU Phase I Document Type FT Summary Primary Physician: Corona Robertson MD Finalized Date/Time: 10/15/24 12:57:43 Pt. Name: KARINA SALGADO/Sex: 1980 Female Med Rec #: [id number] Physician: Corona Robertson MD Financial #: [id number] Pt. Type: A Room/Bed: [facility]08/15 Admit/Disch: 10/15/24 09:43:34 - Institution: Case Times PACU I FT Pre-Care Text: Identifies barriers to communication and implements measures to provide psychological support Develops individualized plan of care, and ensures continuity of care Maintains patient's dignity and privacy, and maintains patient confidentiality Identifies and reports philosophical, cultural, and spiritual beliefs and values Identifies individual values and wishes concerning care Implements aseptic technique, and administers prescribed antibiotic therapy and immunizing agents as ordered Evaluates postoperative tissue perfusion Implements thermoregulation measures, and monitors body temperature Evaluates postoperative respiratory status Evaluates postoperative cardiac status Evaluates postoperative neurological status Assesses pain control, collaborated in initiating patient-controlled analgesia and implements alternative methods of pain control Verifies allergies, administers prescribed medications and solutions, evaluates response to medications Entry 1 In PACU I 10/15/24 11:45:00 Discharge from PACU 10/15/24 12:15:00 I Outcomes Met? Yes Last Modified By: Julieta Hung RN 10/15/24 12:57:24 Post-Care Text: The patient demonstrates knowledge of the expected response to the operative or invasive procedure The patient's care is consistent with the individualized perioperative plan of care The patient's right to privacy is maintained The patient's value system, lifestyle, ethnicity, and culture are considered, respected, and incorporated into the perioperative plan of care The patient participates in decisions affecting his or her perioperative plan of care The patient is free from signs and symptoms of infection The patient has wound/tissue perfusion consistent with or improved from baseline levels established preoperatively The patient is at or returning to normothermia at the conclusion of the immediate postoperative period The patient's respiratory function is consistent with or improved from baseline levels established preoperatively The patient's cardiovascular status is consistent with or improved from baseline levels established preoperatively The patient's cardiovascular status is consistent with or improved from baseline levels established preoperatively The patient demonstrates and/or reports adequate pain control throughout the perioperative period The patient received appropriate medication(s), safely administered during the perioperative period Acuity Level PACU I FT Entry 1 Start Time 10/15/24 11:45:00 Stop Time 10/15/24 12:15:00 Acuity Level Acuity Level I Last Modified By: Julieta Hung RN 10/15/24 12:57:39 Finalized By: Julieta Hung RN Document Signatures Signed By: Julieta Hung RN 10/15/24 12:57 Normal [facility] Main OR PACU II Recordon Main OR PACU II Record Main OR PACU II Record PACU Phase II Document Type FT Summary Primary Physician: Corona Robertson MD Finalized Date/Time: 10/15/24 13:40:14 Pt. Name: KARINA SALGADO/Sex: 1980 Female Med Rec #: [id number] Physician: Corona Robertson MD Financial #: [id number] Pt. Type: A Room/Bed: [facility]/15 Admit/Disch: 10/15/24 09:43:34 - 10/15/24 13:15:00 Institution: Case Times PACU II FT Pre-Care Text: Identifies barriers to communication and implements measures to provide psychological support and determines knowledge level Develops individualized plan of care, and ensures continuity of care Maintains patient's dignity and privacy, and maintains patient confidentiality Identifies and reports philosophical, cultural, and spiritual beliefs and values Identifies individual values and wishes concerning care administers prescribed antibiotic therapy and immunizing agents as ordered, Evaluates postoperative tissue perfusion Implements thermoregulation measures, and monitors body temperature Evaluates postoperative respiratory status Evaluates postoperative cardiac status Evaluates postoperative neurological status Assesses pain control, collaborated in initiating patient-controlled analgesia and implements alternative methods of pain control Verifies allergies, administers prescribed medications and solutions, evaluates response to medications Entry 1 In PACU II 10/15/24 12:15:00 Discharge from PACU 10/15/24 13:15:00 II Outcomes Met? Yes Last Modified By: Wilda Atkins RN 10/15/24 13:40:13 Post-Care Text: The patient demonstrates knowledge of the expected response to the operative or invasive procedure The patient's care is consistent with the individualized perioperative plan of care The patient's right to privacy is maintained The patient's value system, lifestyle, ethnicity, and culture are considered, respected, and incorporated into the perioperative plan of care The patient participates in decisions affecting his or her perioperative plan of care. The patient is free from signs and symptoms of infection The patient has wound/tissue perfusion consistent with or improved from baseline levels established preoperatively The patient is at or returning to normothermia at the conclusion of the immediate postoperative period The patient's respiratory function is consistent with or improved from baseline levels established preoperatively The patient's cardiovascular status is consistent with or improved from baseline levels established preoperatively The patient's neurological status is consistent with or improved from baseline levels established preoperatively The patient demonstrates and/or reports adequate pain control throughout the perioperative period The patient received appropriate medication(s), safely administered during the perioperative period Finalized By: Wilda Atkins RN Document Signatures Signed By: Wilda Atkins RN 10/15/24 13:40 Normal [facility] Main OR Preoperative Recordo n 10-15-2024 Main OR Preoperative Record Main OR Preoperative Record PreOp Document Type FT Summary Primary Physician: Corona Robertson MD Finalized Date/Time: 10/15/24 11:52:06 Pt. Name: KARINA SALGADO /Sex: 1980 Female Med Rec #: [id number] Physician: Corona Robertson MD Financial #: [id number] Pt. Type: A Room/Bed: [facility]08/15 Admit/Disch: 10/15/24 09:43:34 - Institution: Case Times PreOp FT Pre-Care Text: Verifies consent for planned procedure, identifies individual values and wishes concerning care, includes family members in perioperative teaching Entry 1 Patient Times. In Pre Surgery 10/15/24 09:45:00 Out Pre Surgery 10/15/24 11:27:00 Outcomes Met? Yes Last Modified By: Aimee Paige Ii 10/15/24 11:52:04 Post-Care Text: The patient participates in decisions affecting his or her perioperative plan of care Finalized By: Aimee Paige Ii Document Signatures Signed By: Aimee Paige Ii 10/15/24 11:52 Normal [facility] Operative Reporton Operative Report Operative Report Patient: KARINA SALGADO Age: 44 years Sex: Female : 1980 Associated Diagnoses: None Author: Corona Robertson MD Postoperative Information Preoperative Diagnosis: DYSFUNCTION OF EUSTACHIAN TUBE ([id number] H69.83, Working, Medical). Postoperative Diagnosis: DYSFUNCTION OF EUSTACHIAN TUBE ([id number] H69.83, Discharge, Medical). Performed by: Corona Robertson MD. Findings: RT serous eff . Estimated Blood Loss: 0 ml. Intake and Output Medications Complications: None. Normal [facility] Comment on above: Result Comment: Elec tronically Signed By: Corona Robertson MD\.br\Date and Time Signed: 10/15/24 11:51 EDT Outpatient Surgery Discharge Instructionon 10-15-2024 Outpatient Surgery Discharge Instruction Outpatient Surgery Discharge Instruction [place] [id number] Patient Discharge Instructions PERSON INFORMATION Name: KARINA SALGADO Date of : 1980 Current Date: 10/15/2024 11:52:52 PHYSICIANS Admitting Physician: Harshil DONG, Corona Discharge Diagnosis: DYSFUNCTION OF EUSTACHIAN TUBE KARINA SALGADO has been given the following list of follow-up instructions, prescriptions, and patient education materials: PATIENT FOLLOW-UP INFORMATION Diet: Regular Discharge Activity: Expect mild pain, Expect minimal amount of drainage and/or bleeding, Activity as tolerated Additional Instructions: Keep right ear dry 2 weeks Ciprodex 4 drops in right ear twice daily for 5 days IF UNABLE TO CONTACT YOUR PHYSICIAN AND YOU FEEL IT IS AN EMERGENCY, GO TO THE NEAREST EMERGENCY ROOM OR CALL 911 IDAMIAN LEIGHA R, have received the attached patient education materials/instructions and have verbalized understanding: May we do a follow up call? Yes No I was present when discharge instructions were given Patient Signature Date Clinican/Nurse Signature ___ Date Follow up: With: Address: When: Corona Robertson Comments: One month Pharmacy Information: You may receive a survey from [employer] asking you to rate your care experience. Your feedback is important and will help us understand what we do well and how we can improve the quality of care we provide to you, your loved ones and our community. It???s an honor to serve you. Thank you for choosing [facility] HERE ARE THE MEDICATION CHANGES THAT OCCURRED DURING YOUR HOSPITAL STAY Medications to Continue with No Changes Other Medications ASA/butalbital/caffein e (ASA/butalbital/caffei ne Cap) 1 Capsules By Mouth every 6 hours as needed for pain. buprenorphine (buprenorphine 8 mg sublingual tablet) 0.25 tab Sublingual at bedtime. 5 days/week. buprenorphine (buprenorphine 8 mg sublingual tablet) 1 Tablets Sublingual every day. buprenorphine (buprenorphine 8 mg sublingual tablet) 0.5tab Sublingual at bedtime. 2 days/week. etonogestrel (Nexplanon) as directed. PATIENT EDUCATION INFORMATION Instructions: Medication Leaflets: Normal [facility] SEROLOGYOrdered By: Sandra marie on 10-15-2024 Beta HCG ( test) Ql Negative (10/15/24 11:03 AM) Normal [facility] Telephone Encounteron 2022 Welfare Service Aide Authentication Interface Message Text SW met with patient and her boyfriend in [place] on 10/23/22. Patient lives with her mom and dad and her children (ages 18, 13, and 2 years) in [place]. Patient works for [employer]. Patient receives food stamps and is on [employer] it [employer]. Patient is on subutex oil heaterman maintenance. Patient identifies her parents and boyfriend as sources of support. Patient denies any issues at this time. SW contact information provided and available as needed. SANDRINE Haque Pager [phone] Normal [facility] AUDIOGRAMon 10-23-2022 [facility] Noteson 10-23-2022 Welfare Service Aide Authentication Interface Message Text [facility]: [...] short and stiff. Pt does not get ELECTRIC WHEELCHAIR REPAIRER closure with any speech, and gets significant bubbling with sustained /s/. ELECTRIC WHEELCHAIR REPAIRER closure is incomplete, but there is some [...] after pharyngeal flap surgery. SARA Carranza, TRAY, CCC-DIAMOND CLEAVER Speech-Language Pathologist Normal [facility] Welfare Service Aide Authentication Interface Message Text Karina Salgado [id number] 1980 Chief Complaint: speech nasality History of [...] 2016 ELBOW LEFT 2012 orthognathic surgery 1997 [place] I advancement FH: No family history [...] Respiratory: negative symptoms (no cough, hemoptysis, SOB, FRANOCIS, PND, wheezing) Cardiovascular: negative symptoms (No CP/Pressure/Tightness, [...] discussion of the options for treatment. Corinna Smith MD Normal [facility] Welfare Service Aide Authentication Interface Message Text HISTORY Name: Karina Salgado : 1980 Referred by: [facility] Presents today for: audiologic evaluation Patient reports: Perceived change in hearing sensitivity at the right ear Otorrhea at the left ear Tinnitus at the right ear Dizziness History of otologic surgery at both ears Patient denies: Otalgia History of noise exposure Patient reports she is followed by an outside ENT in [place]. She has a history of multiple sets [...] a change is perceived. 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 She is referred by Dr. 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 Here today with her . Patient Active Problem List Diagnosis Date Noted H/O cocaine abuse ([facility]) 04/18/2022 Tobacco use 04/18/2022 Bipolar affective disorder, currently manic, mild ([facility]) 04/18/2022 Anemia 04/18/2022 Adjustment disorder with mixed disturbance of emotions and conduct 04/18/2022 Acne vulgaris 04/18/2022 Buprenorphine dependence ([facility]) 04/18/2022 Depressive disorder 04/18/2022 Eczema 04/18/2022 History [...] septal defect 10/24/[address] Kenyatta Young in [facility]. Nutrition consultation is not necessary. She has [...] from drug use and active with her [employer] program. Physical Examination: Constitutional: Active. No distress. [...] history of tympanoplasty. ENT: Has ENT in [place] that has followed her for multiple years (more content not included)... Normal [facility] Telephone Encounteron 2022 Welfare Service Aide Authentication Interface Message Text Patient is unable to attend September CFD d/t work. Rescheduled: Future Appointments (next ) Provider Department Center 10/23/2022 1:00 PM Jen Saavedra MD [facility] ENT Craniofacial Disease Main [place] Directions given to ENT Clinic/ Beth BEDOYA RN CCC OB HR Bait Man [phone] Office [phone] FAX [email or web address] rg Normal [facility] Telephone Encounteron 2022 Welfare Service Aide Authentication Interface Message Text Called and spoke with patient. Agrees to schedule (tentatively ) in CFD 09/25/22 @ 2pm. Will check with work and request day off, if not will keep 09/20/[address] Smith. Patient will call me back to confirm. I provided my direct contact information. Future Appointments (next 10) Provider Department Center 09/20/2022 11:00 AM (Arrive by 10:50 AM) Corinna Smith MD [facility] Plastic Surgery [facility] 09/25/2022 2:00 PM Jen Saavedra MD [facility] ENT Craniofacial Disease [facility] Beth Marsh BSN RN CCCTM OB HR Bait Man [phone] Office [phone] FAX [email or web address] rg Normal [facility] System CT SINUS W/O CONTRASTon 07-17 CT SINUS W/O CONTRAST EXAMINATION: CT SINUS W/O CONTRAST 08/13/2022 10:38 AM CLINICAL HISTORY: Nasal obstruction ASSOCIATED DIAGNOSIS: Velopharyngeal insufficiency, acquired ORDERING PROVIDER: CORINNA SMITH TECHNOLOGISTS NOTE: COMPARISON: None TECHNIQUE: Thin isotropic [...] Nasal septal defect. MACRO: None Normal [facility] CT Sinuses WO contrastOrdere d By: Favian Lassiter on 08-13-2022 CT DLP 73.72 (mGy.cm) [facility] h Work Phone: CT Series Topogram,SINUS WO [facility] Work Phone: CTDI VOL 0.11 (mGy),3.44 (mGy) [facility] Work Phone: PHANTOM TYPE IEC Head Dosimetry Phantom,IEC Head Dosimetry Phantom [facility] Work Phone: [facility] Work Phone: CT Sinuses WO contraston EXAMINATION: CT SINU S W/O CONTRAST 08/13/2022 10:38 AM CLINICAL HISTORY: Nasal obstruction ASSOCIATED DIAGNOSIS: Velopharyngeal insufficiency, acquired ORDERING PROVIDER: CORINNA SMITH TECHNOLOGISTS NOTE: COMPARISON: None TECHNIQUE: Thin isotropic [...] DIAGNOSIS: Velopharyngeal insufficiency, acquired ORDERING PROVIDER: CORINNA SMITH TECHNOLOGISTS NOTE: COMPARISON: None TECHNIQUE: Thin isotropic [...] is identified. Nasal septal defect. MACRO: None [facility] Radiology Study observation (narrative) [facility] HEPATITIS C VIRUS (HCV) TINY T PCR (NON-Carlos 07-24-2022 HCV log10 Normal [facility] Comment on above: Performed By: #### H CVQNNG #### [facility] [address] [place] [address] Dr. Ponce Dobbins Hepatitis C Quantitation Not detected [facility] Comment on above: Performed By: #### H CVQNNG #### [facility] [address] [place] [address] Dr. Ponce Dobbins Test Information: Comment Normal [facility] Comment on above: Result Comment: The quantitative range of this assay is 15 IU/mL to 100 million IU/mL. Performed By: #### H CVQNNG #### [facility] [address] [place] [address] Dr. Ponce Dobbins INSULINon 07-24-2022 Insulin 3.1 uIU/mL Normal 2.6-24.9 [facility] Comment on above: Performed By: #### H CVQNNG #### [facility] [address] [place] [address] Dr. Ponce Dobbins CBC AUTO DIFFon 07-23-2022 BASO # 0.1 103/ul Normal 0.0-0.1 [facility] Comment on above: Performed By: #### C BC #### [facility] [address] [place] [address] Dr. Ponce Dobbins Basophils/100 WBC (Bld) 0.8 % Normal 0.2-2.0 [facility] Comment on above: Performed By: #### C BC #### [facility] [address] [place] [address] Dr. Ponce Dobbins EO # 0.2 103/ul Normal 0.0-0.7 [facility] Comment on above: Performed By: #### C BC #### [facility] [address] [place] [address] Dr. Pnoce Dobbins Eosinophils/100 WBC (Bld) 2.1 % Normal 0.9-7.0 [facility] Comment on above: Performed By: #### C BC #### [facility] [address] [place] [address] Dr. Ponce Dobbins Erythrocyte distribution width (RBC) [Ratio] 12.4 % Normal 11.0-15.0 [facility] Comment on above: Performed By: #### C BC #### [facility] [address] [place] [address] Dr. Ponce Dobbnis Hematocrit (Bld) [Volume fraction] 40.7 % Normal 36.0-48.0 [facility] Comment on above: Performed By: #### C BC #### [facility] [address] [place] [address] Dr. Ponce Dobbins Hemoglobin (Bld) [Mass/Vol] 14.2 g/dL Normal 12.0-16.0 [facility] Comment on above: Performed By: #### C BC #### [facility] [address] [place] [address] Dr. Ponce Dobbins IG # 0.01 10e3/ul Normal 0.00-0.03 [facility] Comment on above: Performed By: #### C BC #### [facility] [address] [place] [address] Dr. Pnoce Dobbins IG % 0.1 % Normal 0.0-0.5 [facility] Comment on above: Performed By: #### C BC #### [facility] [address] [place] [address] Dr. Ponce Dobbins LYMPH # 2.2 103/ul Normal 1.2-3.8 [facility] Comment on above: Performed By: #### C BC #### [facility] [address] [place] [address] Dr. Ponce Dobbins Lymphocytes/100 WBC (Bld) 28.4 % Normal 20.5-60.0 [facility] Comment on above: Performed By: #### C BC #### [facility] [address] [place] [address] Dr. Ponce Dobbins MANUAL DIFF REQ NO Normal [facility] Comment on above: Performed By: #### C BC #### [facility] [address] [place] [address] Dr. Ponce Dobbins MCH (RBC) [Entitic mass] 28.9 pg Normal 26.7-34.0 [facility] Comment on above: Performed By: #### C BC #### [facility] [address] [place] [address] Dr. Ponce Dobbins MCHC (RBC) [Mass/Vol] 34.9 g/dL Normal 29.9-35.2 [facility] Comment on above: Performed By: #### C BC #### [facility] [address] [place] [address] Dr. Ponce Dobbins MCV (RBC) [Entitic vol] 82.9 fL Normal 81.0-99.0 [facility] Comment on above: Performed By: #### C BC #### [facility] [address] [place] [address] Dr. Ponce Dobbins MONO # 0.5 103/ul Normal 0.3-0.8 [facility] Comment on above: Performed By: #### C BC #### [facility] [address] [place] [address] Dr. Ponce Dobbins Monocytes/100 WBC (Bld) 6.3 % Normal 1.7-12.0 [facility] Comment on above: Performed By: #### C BC #### [facility] [address] [place] [address] Dr. Ponce Dobbins NEUT # 4.8 103/ul Normal 1.4-6.5 [facility] Comment on above: Performed By: #### C BC #### [facility] [address] [place] [address] Dr. Ponce Dobbins Neutrophils/100 WBC (Bld) 62.3 % Normal 43.0-75.0 [facility] Comment on above: Performed By: #### C BC #### [facility] [address] [place] [address] Dr. Ponce Dobbins Platelet mean volume (Bld) [Entitic vol] 8.7 fL Critically low 9.5-13.5 [facility] Comment on above: Performed By: #### C BC #### [facility] [address] [address] [address] Ponce Dobbins PLT 259 103/ul Normal 150-450 [facility] Comment on above: Performed By: #### C BC #### [facility] [address] [place] [address] Dr. Ponce Dobbins RBC 4.91 106/ul Normal 4.20-5.40 [facility] Comment on above: Performed By: #### C BC #### [facility] [address] [place] [address] Dr. Ponce Dobbins WBC 7.8 103/ul Normal 4.0-11.0 [facility] Comment on above: Performed By: #### C BC #### [facility] [address] [place] [address] Dr. Ponce Dobbins FREE THYROXINE INDEX T7on FTI 2.58 Normal 1.30-4.50 [facility] Comment on above: Performed By: #### C MP, T7, LIPID, TSH #### [facility] [address] [place] [address] Dr. Ponce Dobbins T3U 30.0 % Normal 30.0-39.0 [facility] Comment on above: Performed By: #### C MP, T7, LIPID, TSH #### [facility] [address] [place] [address] Dr. Ponce Dobbins T4 [Mass/Vol] 8.60 ug/dL Normal 4.80-13.90 [facility] Comment on above: Performed By: #### C MP, T7, LIPID, TSH #### [facility] [address] [place] [address] Dr. Ponce Dobbins GLYCOHEMOGLOBIN A1Con 2022 ADA RECOMMENDATION SEE BELOW Normal [facility] Comment on above: Result Comment: ADA RECOMMENDED LIMIT 4.0 - 6.0 ADA THERAPEUTIC TARGET < 7.0 ACTION SUGGESTED > 7.0 Performed By: #### H CVQNNG #### [facility] [address] [address] [address] Ponce Dobbins Glucose [Mass/Vol] 105 mg/dL Normal [facility] Comment on above: Performed By: #### H CVQNNG #### [facility] [address] [address] [address] Ponce Dobbins HbA1c (Bld) [Mass fraction] 5.3 % Normal 4.5-6.2 [facility] Comment on above: Performed By: #### H CVQNNG #### [facility] [address] [place] [address] Dr. Ponce Dobbins IRONon 07-23-2022 Iron [Mass/Vol] 91.0 ug/dL Normal 50.0-170.0 [facility] Comment on above: Performed By: #### I FRANCISCO #### [facility] [address] [address] [address] Ponce Dobbins LIPID PROFILEon 07-23-2022 CHOL-HDL RATIO NORM SEE BELOW Normal [facility] Comment on above: Result Comment: 3.3 - 4.4 LOW RISK 4.4 - 7.1 AVERAGE RISK 7.1 - 11.0 MODERATE RISK >11.0 HIGH RISK Performed By: #### C MP, T7, LIPID, TSH #### [facility] [address] [address] [address] Ponce Dobbins Cholesterol [Mass/Vol] 174 mg/dL Normal <=200 [facility] Comment on above: Performed By: #### C MP, T7, LIPID, TSH #### [facility] [address] [address] [address] Ponce Dobbins Cholesterol in HDL [Mass/Vol] 72 mg/dL Critically high 40-60 [facility] Comment on above: Performed By: #### C MP, T7, LIPID, TSH #### [facility] [address] [address] [address] Ponce Dobbins Cholesterol in LDL [Mass/Vol] 90.4 mg/dL [facility] Comment on above: Performed By: #### C MP, T7, LIPID, TSH #### [facility] [address] [address] [address] Ponce Dobbins Cholesterol.total/C holesterol in HDL [Mass ratio] 2.4 {ratio} Normal [facility] Comment on above: Performed By: #### C MP, T7, LIPID, TSH #### [facility] [address] [address] [address] Ponce Dobbins HDL NORMAL > or = 60 mg/dl - LO W CARDIOVASCULAR RISK <40 mg/dl - HIGH CARDIOVASCULAR RISK [facility] Comment on above: Performed By: #### C MP, T7, LIPID, TSH #### [facility] [address] [address] [address] Ponce Dobbins LDL CALC NORMAL SEE BELOW Normal [facility] Comment on above: Result Comment: <100 mg/dl OPTIMAL 100 - 129 mg/dl NEAR OR ABOVE OPTIMAL 130 - 159 mg/dl BORDERLINE HIGH 160 - 189 mg/dl HIGH >190 mg/dl VERY HIGH Performed By: #### C MP, T7, LIPID, TSH #### [facility] [address] [address] [address] Ponce Dobbins Triglyceride [Mass/Vol] 58 mg/dL Normal <=150 [facility] Comment on above: Performed By: #### C MP, T7, LIPID, TSH #### [facility] [address] [place] [address] Dr. Ponce Dobbins VLDL CALC 11.6 mg/dL [facility] Comment on above: Performed By: #### C MP, T7, LIPID, TSH #### [facility] [address] [address] [address] Ponce Dobbins PROF 14(COMP METB)on 023 Albumin [Mass/Vol] 3.9 g/dL Normal 3.4-5.0 [facility] Comment on above: Performed By: #### C MP, T7, LIPID, TSH #### [facility] [address] [address] [address] Ponce Dobbins Albumin/Globulin [Mass ratio] 1.3 {ratio} [facility] Comment on above: Performed By: #### C MP, T7, LIPID, TSH #### [facility] [address] [address] [address] Ponec Dobbins ALP [Catalytic activity/Vol] 50 U/L Normal 46-116 [facility] Comment on above: Performed By: #### C MP, T7, LIPID, TSH #### [facility] [address] [address] [address] Ponce Dobbins ALT [Catalytic activity/Vol] 12 U/L Critically low 14-59 [facility] Comment on above: Performed By: #### C MP, T7, LIPID, TSH #### [facility] [address] [place] [address] Dr. Ponce Dobbins Anion gap [Moles/Vol] 14.0 mmol/L [facility] Comment on above: Performed By: #### C MP, T7, LIPID, TSH #### [facility] [address] [address] [address] Ponce Dobbins AST [Catalytic activity/Vol] 14 U/L Critically low 15-37 [facility] Comment on above: Performed By: #### C MP, T7, LIPID, TSH #### [facility] [address] [address] [address] Ponce Dobbins Bilirubin [Mass/Vol] 0.2 mg/dL Normal 0.2-1.0 [facility] Comment on above: Performed By: #### C MP, T7, LIPID, TSH #### [facility] [address] [address] [address] Ponce Dobbins Calcium [Mass/Vol] 9.0 mg/dL Normal 8.5-10.1 [facility] Comment on above: Performed By: #### C MP, T7, LIPID, TSH #### [facility] [address] [address] [address] Ponce Dobbins Chloride [Moles/Vol] 102 mmol/L Normal 98-107 [facility] Comment on above: Performed By: #### C MP, T7, LIPID, TSH #### [facility] [address] [address] [address] Ponce Dobbins CO2 [Moles/Vol] 26.2 mmol/L Normal 21.0-32.0 [facility] Comment on above: Performed By: #### C MP, T7, LIPID, TSH #### [facility] [address] [place] [address] Dr. Ponce Dobbins Creatinine [Mass/Vol] 0.80 mg/dL Normal 0.55-1.02 [facility] Comment on above: Performed By: #### C MP, T7, LIPID, TSH #### [facility] [address] [place] [address] Dr. Ponce Dobbins EGFR-AF KAZAKH >60 Normal >=60 [facility] Comment on above: Performed By: #### C MP, T7, LIPID, TSH #### [facility] [address] [place] [address] Dr. oPnce Dobbins EGFR-NON AF KAZAKH >60 Normal >=60 [facility] Comment on above: Performed By: #### C MP, T7, LIPID, TSH #### [facility] [address] [place] [address] Dr. Ponce Dobbins Globulin (S) [Mass/Vol] 3.0 g/dL [facility] Comment on above: Performed By: #### C MP, T7, LIPID, TSH #### [facility] [address] [address] [address] Ponce Dobbins Glucose [Mass/Vol] 88 mg/dL Normal 74-106 [facility] Comment on above: Performed By: #### C MP, T7, LIPID, TSH #### [facility] [address] [place] [address] Dr. Ponce Dobbins Potassium [Moles/Vol] 4.2 mmol/L Normal 3.5-5.1 [facility] Comment on above: Performed By: #### C MP, T7, LIPID, TSH #### [facility] [address] [place] [address] Dr. Ponce Dobbins Protein [Mass/Vol] 6.9 g/dL Normal 6.4-8.2 [facility] Comment on above: Performed By: #### C MP, T7, LIPID, TSH #### [facility] [address] [address] [address] Ponce Dobbins Sodium [Moles/Vol] 138 mmol/L Normal 136-145 [facility] Comment on above: Performed By: #### C MP, T7, LIPID, TSH #### [facility] [address] [address] [address] Ponce Dobbins Urea nitrogen [Mass/Vol] 15.0 mg/dL Normal 7.0-18.0 [facility] Comment on above: Performed By: #### C MP, T7, LIPID, TSH #### [facility] [address] [address] [address] Ponce Dobbins Urea nitrogen/Creatinine [Mass ratio] 18.8 mg/mg [facility] Comment on above: Performed By: #### C MP, T7, LIPID, TSH #### [facility] [address] [address] [address] Ponce Dobbins TSHon 07-23-2022 TSH 1.344 uIU/mL Normal 0.358-3.740 [facility] Comment on above: Performed By: #### C MP, T7, LIPID, TSH #### [facility] [address] [address] [address] Ponce Dobbins Telephone Encounteron 2022 Welfare Service Aide Authentication Interface Message Text Patient referred to [facility] by Dr. Smith. Attempted to reach patient, LM on VM with my direct number to schedule follow up. LV Dr. Smith 06/15/22. Beth RICHEYN RN [facility] Crew Mess Attendant Comprehensive [facility]D [facility] 2021 Welfare Service Aide Authentication Interface Message Text Patient referred to [facility] by Dr. Smith. Patient Active Problem List: Velopharyngeal insufficiency, acquired [...] Will attempt call again. Beth BEDOYA RN [facility] Hat Body Inspector [facility] [phone] Office [phone] FAX Normal [facility] Progress Noteson 06-15-2022 Welfare Service Aide Authentication Interface Message Text Karina Salgado [id number] 1980 [id number] Plastic Surgery New Patient Visit Chief Complaint: [...] 2016 ELBOW LEFT 2012 orthognathic surgery 1997 [place], [place] FH: No family history on file. [...] discussion of the options for treatment. Corinna Smith MD Normal [facility] Welfare Service Aide Authentication Interface Message Text Pt identified by name and . Patient at risk for falls:No Falls Risk protocol implemented: No Present in room for physical exam portion of visit. Normal [facility] Patient Instructionson 04-18 Welfare Service Aide Authentication Interface Message Text HOW TO MAKE [...] baby's nose bulb-suction, or with a nasal lead advisor (a Waterpik type device; about $80.00 for both the Waterpik and lead advisor, SinuPulse Elite Advanced Nasal Sinus Irrigation System by [employer] on [employer]; powerful flow to knock away crusts and enter sinuses). Navage is a device that uses suction to pull saline from one side, around the back, and out the other nostril. It uses proprietary salt pods, and suction rather than propelling spray. The basic package is also about $80. It can be found on [employer], or: [email or web address]://www.[email or web address] /npgy-plxytju-duoxi-ir rigation-p/bdl-b-nc.ht m A NasoNeb (nasal nebulizer, call to order, more of a vapor machine) can deliver voluminous mist to the nose to wet tissue; it may not knock out crusts, though some patients may prefer it if a spray or suction feels too powerful. I usually advise the strongest device, an lead advisor or Navage, to knock away crusts in the nose that may develop from prior surgery, chronic infections, or autoimmune disorders. To make saline: boil 1 quart water, add 1 tablespoon of salt: pickling, jarred, or regular, and add 1 teaspoon of bicarbonate to reduce any chance of stinging. Let the solution cool before use! pharyngeal flap Normal [facility] Progress Noteson 04-18-2022 Welfare Service Aide Authentication Interface Message Text Patient was identified by name and date of . ZAYRA Keating Patient in exam room, vital signs taken, ready for MD exam. Normal [facility] 25-HYDROXY VIT D (D2+D3 FRAC ) LC/MS-MSon 08-17-2021 25-Hydroxy, Vitamin D 13 ng/mL Critically low [facility] Comment on above: Result Comment: Refe rence Range: All Ages: Target levels 30 - 100 Performed By: #### V ITDLC #### [facility] [address] [place] [address] Dr. Ponce Dobbins 25-Hydroxy, Vitamin D-2 <1.0 [facility] Comment on above: Result Comment: This test was developed and its performance characteristics determined by [facility]. It has not been cleared or approved by the Food and Drug Administration. Performed By: #### V ITDLC #### [facility] [address] [place] [address] Dr. Ponce Dobbins 25-Hydroxy, Vitamin D-3 12 ng/mL [facility] Comment on above: Result Comment: This test was developed and its performance characteristics determined by [facility]. It has not been cleared or approved by the Food and Drug Administration. Performed By: #### V ITDLC #### [facility] [address] [place] [address] Dr. Ponce Dobbins CBC AUTO DIFFon 08-09-2021 BASO # 0.1 103/ul Normal 0.0-0.1 [facility] Comment on above: Performed By: #### H CVQNNG #### [facility] [address] [place] [address] Dr. Ponce Dobbins Basophils/100 WBC (Bld) 0.6 % Normal 0.2-2.0 [facility] Comment on above: Performed By: #### H CVQNNG #### [facility] [address] [place] [address] Dr. Ponce Dobbins EO # 0.2 103/ul Normal 0.0-0.7 [facility] Comment on above: Performed By: #### H CVQNNG #### [facility] [address] [place] [address] Dr. Ponce Dobbins Eosinophils/100 WBC (Bld) 1.7 % Normal 0.9-7.0 [facility] Comment on above: Performed By: #### H CVQNNG #### [facility] [address] [place] [address] Dr. Ponce Dobbins Erythrocyte distribution width (RBC) [Ratio] 13.4 % Normal 11.0-15.0 [facility] Comment on above: Performed By: #### H CVQNNG #### [facility] [address] [place] [address] Dr. Ponce Dobbins Hematocrit (Bld) [Volume fraction] 39.5 % Normal 36.0-48.0 [facility] Comment on above: Performed By: #### H CVQNNG #### [facility] [address] [place] [address] Dr. Ponce Dobbins Hemoglobin (Bld) [Mass/Vol] 12.7 g/dL Normal 12.0-16.0 [facility] Comment on above: Performed By: #### H CVQNNG #### [facility] [address] [place] [address] Dr. Ponce Dobbins IG # 0.03 10e3/ul Normal 0.00-0.03 [facility] Comment on above: Performed By: #### H CVQNNG #### [facility] [address] [place] [address] Dr. Ponce Dobbins IG % 0.3 % Normal 0.0-0.5 [facility] Comment on above: Performed By: #### H CVQNNG #### [facility] [address] [place] [address] Dr. Ponce Dobbins LYMPH # 2.2 103/ul Normal 1.2-3.8 [facility] Comment on above: Performed By: #### H CVQNNG #### [facility] [address] [place] [address] Dr. Ponce Dobbins Lymphocytes/100 WBC (Bld) 25.0 % Normal 20.5-60.0 [facility] Comment on above: Performed By: #### H CVQNNG #### [facility] [address] [place] [address] Dr. Ponce Dobbins MANUAL DIFF REQ NO Normal [facility] Comment on above: Performed By: #### H CVQNNG #### [facility] [address] [place] [address] Dr. Ponce Dobbins MCH (RBC) [Entitic mass] 27.9 pg Normal 26.7-34.0 [facility] Comment on above: Performed By: #### H CVQNNG #### [facility] [address] [place] [address] Dr. Ponce Dobbins MCHC (RBC) [Mass/Vol] 32.2 g/dL Normal 29.9-35.2 [facility] Comment on above: Performed By: #### H CVQNNG #### [facility] [address] [place] [address] Dr. Ponce Dobbins MCV (RBC) [Entitic vol] 86.6 fL Normal 81.0-99.0 [facility] Comment on above: Performed By: #### H CVQNNG #### [facility] [address] [place] [address] Dr. Ponce Dobbins MONO # 0.5 103/ul Normal 0.3-0.8 [facility] Comment on above: Performed By: #### H CVQNNG #### [facility] [address] [place] [address] Dr. Ponce Dobbins Monocytes/100 WBC (Bld) 5.7 % Normal 1.7-12.0 [facility] Comment on above: Performed By: #### H CVQNNG #### [facility] [address] [place] [address] Dr. Ponce Dobbins NEUT # 5.7 103/ul Normal 1.4-6.5 [facility] Comment on above: Performed By: #### H CVQNNG #### [facility] [address] [place] [address] Dr. Ponce Dobbins Neutrophils/100 WBC (Bld) 66.7 % Normal 43.0-75.0 [facility] Comment on above: Performed By: #### H CVQNNG #### [facility] [address] [place] [address] Dr. Ponce Dobbins Platelet mean volume (Bld) [Entitic vol] 9.9 fL Normal 9.5-13.5 [facility] Comment on above: Performed By: #### H CVQNNG #### [facility] [address] [address] [address] Ponce Dobbins PLT 265 103/ul Normal 150-450 [facility] Comment on above: Performed By: #### H CVQNNG #### [facility] [address] [address] [address] Ponce Dobbins RBC 4.56 106/ul Normal 4.20-5.40 [facility] Comment on above: Performed By: #### H CVQNNG #### [facility] [address] [place] [address] Dr. Ponce Dobbins WBC 8.6 103/ul Normal 4.0-11.0 [facility] Comment on above: Performed By: #### H CVQNNG #### [facility] [address] [place] [address] Dr. Ponce Dobbins FREE T4on 08-09-2021 Free T4 [Mass/Vol] 1.01 ng/dL Normal 0.78-2.19 [facility] Comment on above: Performed By: #### V ITAD, FT4 #### [facility] [address] [place] [address] Dr. Ponce Dobbins PROF 14(COMP METB)on 022 Albumin [Mass/Vol] 3.6 g/dL Normal 3.5-5.0 [facility] Comment on above: Performed By: #### H CVQNNG #### [facility] [address] [place] [address] Dr. Ponce Dobbins Albumin/Globulin [Mass ratio] 1.2 {ratio} [facility] Comment on above: Performed By: #### H CVQNNG #### [facility] [address] [place] [address] Dr. Ponce Dobbins ALP [Catalytic activity/Vol] 47 U/L Normal 38-126 [facility] Comment on above: Performed By: #### H CVQNNG #### [facility] [address] [place] [address] Dr. Ponce Dobbins ALT [Catalytic activity/Vol] 13 U/L Normal 9-52 [facility] Comment on above: Performed By: #### H CVQNNG #### [facility] [address] [place] [address] Dr. Ponce Dobbins Anion gap [Moles/Vol] 11.5 mmol/L [facility] Comment on above: Performed By: #### H CVQNNG #### [facility] [address] [place] [address] Dr. Ponce Dobbins AST [Catalytic activity/Vol] 16 U/L Normal 14-36 [facility] Comment on above: Performed By: #### H CVQNNG #### [facility] [address] [place] [address] Dr. Ponce Dobbins Bilirubin [Mass/Vol] 0.2 mg/dL Normal 0.2-1.3 [facility] Comment on above: Performed By: #### H CVQNNG #### [facility] [address] [place] [address] Dr. Ponce Dobbins Calcium [Mass/Vol] 8.6 mg/dL Normal 8.4-10.2 [facility] Comment on above: Performed By: #### H CVQNNG #### [facility] [address] [place] [address] Dr. Ponce Dobbins Chloride [Moles/Vol] 103 mmol/L Normal 98-107 [facility] Comment on above: Performed By: #### H CVQNNG #### [facility] [address] [place] [address] Dr. Ponce Dobbins CO2 [Moles/Vol] 26.4 mmol/L Normal 22.0-30.0 [facility] Comment on above: Performed By: #### H CVQNNG #### [facility] [address] [place] [address] Dr. Ponce Dobbins Creatinine [Mass/Vol] 0.72 mg/dL Normal 0.52-1.04 [facility] Comment on above: Performed By: #### H CVQNNG #### [facility] [address] [place] [address] Dr. Ponce Dobbins EGFR-AF KAZAKH >60 Normal >=60 [facility] Comment on above: Performed By: #### H CVQNNG #### [facility] [address] [place] [address] Dr. Ponce Dobbins EGFR-NON AF KAZAKH >60 Normal >=60 [facility] Comment on above: Performed By: #### H CVQNNG #### [facility] [address] [address] [address] Ponce Dobbins Globulin (S) [Mass/Vol] 2.9 g/dL [facility] Comment on above: Performed By: #### H CVQNNG #### [facility] [address] [place] [address] Dr. Ponce Dobbins Glucose [Mass/Vol] 76 mg/dL Normal 74-106 [facility] Comment on above: Performed By: #### H CVQNNG #### [facility] [address] [place] [address] Dr. Ponce Dobbins Potassium [Moles/Vol] 3.9 mmol/L Normal 3.4-5.0 [facility] Comment on above: Performed By: #### H CVQNNG #### [facility] [address] [place] [address] Dr. Ponce Dobbins Protein [Mass/Vol] 6.5 g/dL Normal 6.1-8.2 [facility] Comment on above: Performed By: #### H CVQNNG #### [facility] [address] [place] [address] Dr. Ponce Dobbins Sodium [Moles/Vol] 137 mmol/L Normal 137-145 [facility] Comment on above: Performed By: #### H CVQNNG #### [facility] [address] [place] [address] Dr. Ponce Dobbins Urea nitrogen [Mass/Vol] 15.0 mg/dL Normal 7.0-17.0 [facility] Comment on above: Performed By: #### H CVQNNG #### [facility] [address] [place] [address] Dr. Ponce Dobbins Urea nitrogen/Creatinine [Mass ratio] 20.8 mg/mg [facility] Comment on above: Performed By: #### H CVQNNG #### [facility] [address] [place] [address] Dr. Ponce Dobbins TSHon 08-09-2021 TSH 1.380 uIU/mL Normal 0.470-4.680 [facility] Comment on above: Performed By: #### H CVQNNG #### [facility] [address] [place] [address] Dr. Ponce Dobbins TSH RANGE SEE BELOW [facility] Comment on above: Result Comment: <0.3 4 UIU/ml HYPERTHYROID 0.34-5.60 UIU/ml EUTHYROID >5.60 UIU/ml HYPOTHYROID Performed By: #### H CVQNNG #### [facility] [address] [place] [address] Dr. Ponce Dobbins VITAMIN D 25 OHon 08-09-2021 VIT D 25-OH 13.0 ng/mL [facility] Comment on above: Performed By: #### V GIANNA, FT4 #### [facility] [address] [place] [address] Dr. Ponce Dobbins VIT D RANGES SEE BELOW [facility] Comment on above: Result Comment: <20 ng/mL Vit D deficient 20 - <30 ng/mL Vit D insufficient 30 - 100 ng/mL Vit D sufficient >100 ng/mL Potential Toxicity Performed By: #### V FIDEAD, FT4 #### [facility] [address] [place] [address] Dr. Ponce Dobbins Vital Signs Date Time Vital Sign Value Performing Clinician Facility 02-15-2025 15: Body mass index (BMI) [Ratio] 22.47 kg/m2 Hansa ROBLES Work Phone: [facility] 02-15-2025 15: Body weight 61.24 kg Hansa ROBLES Work Phone: [facility] 02-15-2025 15: Diastolic blood pressure 80 mm[Hg] Hansa ROBLES Work Phone: [facility] 02-15-2025 15:13-0400 Systolic blood pressure 120 mm[Hg] Hansa Gan TRAVIS Work Phone: [facility] 10-15-2024 12:59-0400 Heart rate 75 /min Corona Timmis [facility] 10-15-2024 12:59-0400 SaO2% (BldA) [Mass fraction] 100 % Corona Timmis [facility] 10-15-2024 12:58-0400 Respiratory rate 16 /min Corona Timmis [facility] 10-15-2024 12:58-0400 Blood Pressure Location Corona Timmis [facility] 10-15-2024 12:58-0400 Diastolic blood pressure 80 mm[Hg] Corona Timmis [facility] 10-15-2024 12:58-0400 Mean blood pressure 90 mm[Hg] Corona Timmis [facility] 10-15-2024 12:58-0400 Systolic blood pressure 111 mm[Hg] Corona Timmis [facility] 10-15-2024 12:58-0400 Body temperature 97.34 [degF] Corona Timmis [facility] 10-15-2024 12:17-0400 Heart rate 75 /min Corona Timmis [facility] 10-15-2024 12:17-0400 SaO2% (BldA) [Mass fraction] 99 % Corona Timmis [facility] 10-15-2024 12:16-0400 Blood Pressure Location Corona Timmis [facility] 10-15-2024 12:16-0400 Diastolic blood pressure 72 mm[Hg] Corona Timmis [facility] 10-15-2024 12:16-0400 Mean blood pressure 84 mm[Hg] Corona Timmis [facility] 10-15-2024 12:16-0400 Systolic blood pressure 108 mm[Hg] Corona Timmis [facility] 10-15-2024 12:16-0400 Respiratory rate 14 /min Corona Timmis [facility] 10-15-2024 12:16-0400 Body temperature 96.98 [degF] Corona Timmis [facility] 10-15-2024 12:11-0400 SaO2% (BldA) [Mass fraction] 99 % Corona Timmis [facility] 10-15-2024 12:10-0400 Heart rate 54 /min Corona Timmis [facility] 10-15-2024 12:10-0400 Respiratory rate 16 /min Corona Timmis [facility] 10-15-2024 12:10-0400 Body temperature 97.7 [degF] Corona Timmis [facility] 10-15-2024 12:10-0400 Diastolic blood pressure 76 mm[Hg] Corona Timmis [facility] 10-15-2024 12:10-0400 Mean blood pressure 87 mm[Hg] Corona Timmis [facility] 10-15-2024 12:10-0400 Systolic blood pressure 109 mm[Hg] Corona Timmis [facility] 10-15-2024 12:00-0400 Mean blood pressure 79 mm[Hg] Corona Timmis [facility] 10-15-2024 11:55-0400 Respiratory rate 12 /min Corona Timmis [facility] 10-15-2024 11:55-0400 Mean blood pressure 70 mm[Hg] Corona Timmis [facility] 10-15-2024 11:50-0400 Respiratory rate 12 /min Corona Timmis [facility] 10-15-2024 09:57-0400 Blood Pressure Location Corona Timmis [facility] 10-15-2024 09:57-0400 Mean blood pressure 91 mm[Hg] Corona Timmis [facility] 10-15-2024 09:57-0400 Heart rate 68 /min Corona Timmis [facility] 10-15-2024 09:56-0400 Body temperature 97.7 [degF] Corona Timmis [facility] 06-15-2022 16:26-0500 Body height 165.1 cm Corinna Smith MD Work Phone: [employer] 06-15-2022 16:26-0500 Body mass index (BMI) [Ratio] 22.8 kg/m2 Corinna Smith MD Work Phone: [employer] 06-15-2022 16:26-0500 Body weight 62.14 kg Corinna Smith MD Work Phone: [employer] 06-15-2022 16:26-0500 Diastolic blood pressure 80 mm[Hg] Corinna Smith MD Work Phone: [employer] 06-15-2022 16:26-0500 Heart rate 89 /min Corinna Smith MD Work Phone: [employer] 06-15-2022 16:26-0500 Respiratory rate 16 /min Corinna Smith MD Work Phone: [facility] [place] 06-15-2022 16:26-0500 Systolic blood pressure 120 mm[Hg] Corinna Smith MD Work Phone: [facility] [place] 04-18-2022 09:16-0400 Body temperature 98.4 [degF] Stephani Hobbs MD Work Phone: [facility] 04-03-2022 15:50-0400 Blood Pressure Location Favian BOTELLOL [facility] 04-03-2022 15:50-0400 Diastolic blood pressure 60 mm[Hg] Favian NILL [facility] 04-03-2022 15:50-0400 Heart rate 64 /min Favian NILL [facility] 04-03-2022 15:50-0400 Respiratory rate 16 /min Favian NILL [facility] 04-03-2022 15:50-0400 Systolic blood pressure 104 mm[Hg] Favian BOTELLOL [facility] Encounters Encounter Date Encounter Type Care Provider Facility Start: 02-15-2025 End: 02-15-2025 Patient encounter procedure Hansa ROBLES Work Phone: [facility] Work Phone: Start: 02-15-2025 End: 02-15-2025 Periodic preventive med est patient 40-64yrs Hansa ROBLES Work Phone: [facility] Comment on above: Well woman exam with routine gynecological exam; Breast cancer screening by mammogram; Mass of upper outer quadrant of right breast; Mass of right breast, unspecified quadrant; Fibroadenosis of right breast Start: 02-15-2025 End: 02-15-2025 Bamboo flowsheet Hansa ROBLES Work Phone: [facility] Start: 02-15-2025 End: 02-15-2025 Bamboo flowsheet Hansa ROBLES Work Phone: [facility] Start: 02-12-2025 ambulatory Naeem Donis DO [facility] Start: 10-15-2024 End: 10-15-2024 Telephone encounter Corona Robertson MD Work Phone: [facility] Start: 10-15-2024 End: 10-15-2024 Admission to same day surgery center Corona Dalaldennise [facility] Start: 10-15-2024 End: 10-15-2024 ambulatory Corona Robertson [facility] Start: 10-06-2024 End: 10-14-2024 Pre-admission assessment Corona Robertson [facility] Start: 10-06-2024 End: 10-06-2024 ambulatory CORONA ROBERTSON Not Available Start: 04-05-2023 ambulatory Beth mcclelland RN Work Phone: [facility] Care Management/Patient Access Comment on above: Medical Record Revjaret w (CFD) Start: 12-11-2022 ambulatory Beth mcclelland RN Work Phone: [facility] Care Management/Patient Access Comment on above: Medical Record Revjaret w (CFD F/U) Start: 10-24-2022 ambulatory Jose DELUCA [facility] Social Work Start: 10-24-2022 Coordination of care plan Jose DELUCA [facility] Social Work Comment on above: Care Coordination (C FD) Start: 10-23-2022 End: 10-30-2022 ambulatory UNKNOWN PROVIDER Facility:[facility] Start: 10-23-2022 Office outpatient vi sit 10 minutes Corinna Smith MD Work Phone: [facility] Plastic Surgery Start: 10-23-2022 Patient encounter procedure Christin Elizondo CCC-DIAMOND CLEAVER [facility] Speech ENT Start: 10-23-2022 End: 10-23-2022 ambulatory Corrie Mederos MA CCC-A Work Phone: [facility] Audiology Comment on above: 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 (Primary Dx); Middle ear effusion, right; Tympanic membrane perforation, left Start: 10-23-2022 End: 10-23-2022 Nutrition therapy Corrie Mederos MA CCC-A Work Phone: [facility] Audiology Start: 10-23-2022 End: 10-29-2022 Office outpatient new 30 minutes Jen Saavedra MD Work Phone: [facility] ENT Craniofacial Disease Comment on above: Velopharyngeal insuf ficiency, acquired (Primary Dx); Conductive hearing loss of right ear, unspecified hearing status on contralateral side; Dysfunction of both eustachian tubes Start: 09-18-2022 ambulatory Beth mcclelland RN Work Phone: [facility] Care Management/Patient Access Start: 09-18-2022 Patient encounter procedure Beth Marsh RN Work Phone: [facility] Care Management/Patient Access Comment on above: APPOINTMENT SCHEDULI NG (CFD) Start: 08-15-2022 ambulatory Beth mcclelland RN Work Phone: [facility] Care Management/Patient Access Start: 08-15-2022 Patient encounter procedure Beth Marsh RN Work Phone: [facility] Care Management/Patient Access Comment on above: APPOINTMENT SCHEDULI NG (CFD) Start: 08-13-2022 End: 08-14-2022 ambulatory UNKNOWN PROVIDER Facility:[facility] Start: 08-13-2022 End: 08-13-2022 Subsequent hospital visit by physician Ip/Op Ct Scan Main 2(Edge) [facility] Radiology CT Comment on above: Velopharyngeal insuf ficiency, acquired Start: 07-26-2022 Encounter for genera l adult medical examination without abnormal findings DR KENYATTA YOUNG [facility] Start: 07-23-2022 End: 07-24-[address] KENYATTA YOUNG Facility:[facility] Start: 07-23-2022 End: 07-24-2022 Encounter for general adult medical examination without abnormal findings DR KENYATTA YOUNG Facility:[facility] Start: 07-18-2022 ambulatory Beth mcclelland RN Work Phone: [facility] Care Management/Patient Access Start: 07-18-2022 Patient encounter procedure Beth Marsh RN Work Phone: [facility] Care Management/Patient Access Comment on above: APPOINTMENT SCHEDULI NG (CFD Referral) Start: 06-18-2022 ambulatory Bethjovana mcclelland RN Work Phone: [facility] Care Management/Patient Access Start: 06-18-2022 Patient encounter procedure Beth Marsh RN Work Phone: [facility] Care Management/Patient Access Comment on above: New patient, to viral peralta relationship ([facility]) Start: 06-15-2022 ambulatory UNKNOWN PROVIDER Facili ty:[facility] Start: 06-15-2022 End: 06-15-2022 Office consultation new/estab patient 40 min Corinna Smith MD Work Phone: [facility] Plastic Surgery Comment on above: Velopharyngeal insuf ficiency, acquired (Primary Dx); Body mass index (BMI) 22.0-22.9, adult Start: 04-18-2022 End: 04-18-2022 ambulatory UNKNOWN PROVIDER Facility:[facility] Start: 04-18-2022 End: 04-18-2022 Office outpatient new 45 minutes Stephani Hobbs MD Work Phone: [facility] Otolaryngology (ENT) Comment on above: Velopharyngeal insuf ficiency, acquired (Primary Dx); Nasal septal defect; H/O cocaine abuse (HCC); Dysfunction of both eustachian tubes Start: 04-03-2022 End: 04-03-2022 Patient encounter procedure Favian DEJESUS [facility] Start: 08-09-2021 End: 08-10-[address] DOCTOR CURRIE Facility:[facility] Procedures Date Procedure Procedure Detail Performing Clinician Start: 05-31-2023 Mammography Corona lyons MD Work Phone: Start: 04-24-2023 Microscopic observat ion [Identifier] in Cervix by Cyto stain Corona Robertson MD Work Phone: Start: 10-23-2022 Compre audiometry threshold eval sp recognij Corrie Mederos MA CCC-A Work Phone: Start: 10-23-2022 AUDIOGRAM Corrie Mederos MA CCC-A Work Phone: Start: 08-13-2022 Ct maxillofacial w/o contrast material Corinna Smith MD Work Phone: Start: 06-21-2022 H/O: surgery S/P tympanoplasty Jen Saavedra MD Work Phone: Start: 04-18-2022 Nasal endoscopy diag nostic uni/bi spx Stephani Hobbs MD Work Phone: History of operative [...] 2) Shingles (RZV) Vaccine (1 of 2) [facility] Start: 04-24-2026 Screening for malignant neoplasm of cervix Pap Smear [facility] Start: 02-17-2026 End: 02-17-2026 Patient encounter procedure 02/17/2026 2:00 PM EDT Procedure Visit [facility] [address] [place] [address] Hansa Gan PA [address] [place] [address] [facility] Start: 03-15-2025 Influenza vaccination N [facility] Start: 02-15-2025 End: 02-15-2025 Patient encounter procedure 02/15/2025 3:00 PM EDT Office Visit [facility] [address] [place] [phone] Hansa Gan PA [address] [place] [address] Arrived [facility] Comment on above: Arrived Start: 02-15-2025 End: 04-17-2026 MG Breast - bilateral Diagnostic Bilateral diagnostic mammogram Imaging Routine Breast cancer screening by mammogram Mass of upper outer quadrant of right breast Mass of right breast, unspecified quadrant Fibroadenosis of right breast Expected: 02/15/2025 (Approximate), Expires: 04/17/2026 [facility] Comment on above: Expected: 02/15/2025 (Approximate), Expires: 04/17/2026 Start: 11-03-2024 End: 11-03-2024 Patient encounter procedure 11/03/2024 2:00 PM EDT Office Visit [facility] [address] [place] [phone] Hansa Gan PA [address] [place] [address] [facility] Start: 07-23-2024 Screening for malignant neoplasm of cervix [facility] Start: 05-31-2024 Screening for malignant neoplasm of breast Mammogram [facility] Start: 04-14-2023 Influenza vaccination Influenza Vacc ine (#1) [facility] Start: 10-23-2022 End: 10-23-2022 Patient encounter procedure 10/23/2022 Office Visit Pediatric Comp Care Jen Saavedra MD [address] [place] [phone] [facility] ENT Craniofacial Disease Start: 09-25-2022 End: 09-25-2022 Patient encounter procedure 09/25/2022 Office Visit Pediatric Comp Care Jen Saavedra MD [address] [place] [address] [facility] ENT Craniofacial Disease Start: 09-20-2022 End: 09-20-2022 Patient encounter procedure 09/20/2022 Office Visit Plastic Surgery Corinna Smith MD [address] [place] [address] [facility] Plastic Surgery Start: 07-23-2022 End: 07-23-2022 Patient encounter procedure 07/23/2022 Appointment Radiology [facility] Radiology CT Start: 06-15-2022 End: 06-15-2023 CT Sinuses WO contrast CT SINUS W/O CONTRAST Imaging Routine Velopharyngeal insufficiency, acquired Expected: 06/15/2022, Expires: 06/15/2023 [facility] Work Phone: Comment on above: Expected: 06/15/2022 , Expires: 06/15/2023 Start: 2022 Screening for malignant neoplasm of breast Mammography [facility] Start: 04-14-2022 Influenza vaccination Influenza Vacc ine (#1) [facility] Start: 2009 HPV Vaccine (optiona l start 27-45 years) HPV Vaccine (optional start 27-45 years) [facility] Start: 2003 Screening for malignant neoplasm of cervix [facility] Start: 2000 Hepatitis C screening Hepatitis C An tibody [facility] Start: 2000 Tetanus + diphtheria + acellular pertussis vaccine (product) Tdap Booster [facility] Start: 1997 HIV screening HIV Test [facility] Start: 1988 Pneumococcal vaccination Pneumococcal Vaccine(s) (1 - PCV) [facility] Start: 1982 COVID-19 Vaccine (#1) COVID-19 Vacci ne (#1) [facility] Start: 1982 COVID-19 Vaccine ( formulation) COVID-19 Vaccine ( formulation) [facility] THIN PREP TIS PAP AN D HR HPV DNA THIN PREP TIS PAP AND HR HPV DNA Pathology and Cytology Routine Well woman exam with routine gynecological exam Ordered: 02/15/2025 [facility] [employer] Work Phone: Comment on above: Ordered: 02/15/2025 Payers Date Payer Category Payer Medicaid DO NOT USE-MIRIAM Pagan MARY DO NOT USE-DENTAL MARYE [id number] 2015-Present [phone] [address] [place] [address] Medicaid HMO [id number] 2015 Medicaid (Managed Care) [employer] [id number] 2015 Unknown [id number] 1982 Unknown [id number] [id number]. 593 1982 Unknown [id number] [id number]. 593 1982 Unknown [id number] [id number]. 732 1982 Unknown [id number] [id number]. 732 1982 Unknown [id number] [id number]. 732 1982 Unknown [id number] [id number]. 732 1982 Unknown [id number] [id number]. 732 1982 Unknown [id number] [id number]. 732 1982 Unknown [id number] [id number]. 1259 1982 Unknown [id number] [id number]. 727 1982 Unknown [id number]. 727 1959 Unknown [id number] Social History Date Type Detail Facility Start: 04-03-2022 End: 10-13-2024 Tobacco smoking status Heavy tobacco smoker (finding) [facility] Tobacco smoking status Never [facility] Start: 10-06-2024 Sex Assigned At Female [facility] Start: 04-18-2022 End: 10-06-2024 Tobacco smoking status NHIS Smokes tobacco daily [facility] History of tobacco use [facility]igarette [facility] Start: 04-18-2022 End: 10-06-2024 Cigarettes smoked current (pack per day) - Reported 0.5 [facility] Start: 04-18-2022 Tobacco use and exposure User of smokeless tobacco [facility] Start: 04-18-2022 End: 10-25-2022 Alcohol intake Current non-drinker of alcohol (finding) [facility] Start: 1980 [facility] Orientation [facility] Start: 12-11-2017 Sex Female (finding) [facility] Start: 10-06-2024 End: 02-15-2025 Alcoholic beverage intake Ex-drinker (finding) [facility] Start: 02-22-2023 Alcohol Comment Caffeine: 1-2 cups/day coffee [facility] Functional Status Date Assessment Result Facility 10-13-2024 Functional Status No [facility] 04-03-2022 Functional Status N/A [facility] Clinical Notes 04-18-2022 to 02-15-2025 TRAVIS Saleh - 02/15/2025 3:00 PM EDTTelephone Encounter - Corona Robertson MD - 10/15/2024 2:17 PM EDTTelephone Encounter - Corona Robertson MD - 10/15/2024 2:17 PM EDT Note Date & Type Note Facility 02-15-2025 History of Presen t illness Narrative Reason for Appointment: Patient ID: Karina Salgado is a 44 y.o. female who [...] 04/18/2022 Bipolar affective disorder, currently manic, mild ([facility]) 04/18/2022 Depressive disorder 04/18/2022 Deviated nasal septum 10/24/2015 Dysfunction of both eustachian tubes 11/15/2016 Eczema 04/18/2022 H/O cocaine abuse ([facility]) 04/18/2022 Bilateral hearing loss 12/18/2016 History of alcohol abuse 10/05/2024 History of hepatitis C virus infection 04/18/2022 History of heroin abuse ([facility]) 10/05/2024 Hoarseness 09/22/2018 Resolved Ambulatory Problems Diagnosis Date Noted No Resolved Ambulatory Problems Past Medical History: Diagnosis Date Abnormal quad screen Advanced maternal age in multigravida ([facility]) Depression ETD (eustachian tube dysfunction) History of hepatitis C History of OCD (obsessive compulsive disorder) Liver disease 2012 Maternal care for rhesus isoimmunization during antepartum period, currently delivered ([facility]) Opioid abuse ([facility]) Opioid dependence (HCC) Otitis media, chronic Tobacco use affecting in third trimester, antepartum ([facility]) Umbilical hernia Underweight HISTORY PAST MEDICAL HISTORY SOCIAL HISTORY Past Medical History: Diagnosis Date Abnormal quad screen Advanced maternal age in multigravida ([facility]) Depression ETD (eustachian tube dysfunction) History of alcohol abuse History of hepatitis C History of heroin abuse ([facility]) History of OCD (obsessive compulsive disorder) Liver disease 2012 Maternal care for rhesus isoimmunization during antepartum period, currently delivered ([facility]) Opioid abuse ([facility]) Opioid dependence (HCC) Otitis media, chronic Tobacco use affecting in third trimester, antepartum ([facility]) Umbilical hernia Underweight Social History Tobacco Use [...] Surgical History: Procedure Laterality Date ELBOW SURGERY 2012 MOUTH SURGERY 1996 MYRINGOTOMY W/ TUBES Right [...] nursing note reviewed. Exam conducted with a bean snapper present. Vitals: Estimated body mass index is 22.47 kg/m as calculated from the following: Height as [...] patient given mammogram order to have scheduled/obtained due to Right Breast mass at 9 o'clock position. Patient was to have a follow up to Biopsy which she never had completed. Orders Placed This Encounter Procedures Bilateral diagnostic mammogram Follow Up: Patient is to return in one year for annual unless needed otherwise. Documented by pAolonia Meade LPN on behalf of: TRAVIS Saleh documented in this encounter [facility] 10-18-2024 Note Progress Note-Tushar tse Patient: KARINA SALGADO Age: 44 years Sex: Female : 1980 Associated Diagnoses: None Author: Paul DONG, Zana Soliman Postoperative Information Postoperative disposition: Postoperative disposition: To PACU. Optimetrix number: Optimetrix number [id number]. Anesthetic utilized: General. Health Status Allergies: Allergic Reactions (Selected) No Known Allergies No Known Medication Allergies Physical Examination VS/Measurements Pain Assessment: Controlled. General: Awake, Appropriate. Respiratory: Adequate air exchange. Cardiovascular: Stable. Neurological Assessment Anesthetic outcome No anesthetic complications noted. Adequate pain relief. Review / Management Condition: Stable. Plan Transfer/Discharge: Transfer/Discharge Discharge when meets criteria ( To home ). [facility] Comment on above: Result Comment: Elec tronically Signed By: Zana Miller MD\.br\Date and Time Signed: 10/18/24 11:35 EDT 10-15-2024 Hospital Discharg e instructions Patient Education 10/15/2024 12:43:02 Post Op Patient Instructions - FT (CUSTOM) Follow Up Care 10/06/2024 11:08:52 With:Corona Robertson Address:Unknown When: Unknown Comments:One month [facility] 10-15-2024 Telephone encounter Note Rx sent in [facility] 10-15-2024 Miscellaneous Notes Rx sent in documented in this encounter [facility] 10-15-2024 Evaluation + Plan note Extrac terry from: Title:ANES Pre-operative Note 2022 Author:Zana Lerner Date:10/15/[address] [place] [employer]hesi[employer] (ASA) physical status classification: Class II. Anesthetic Preoperative Plan: Anesthesia General. [facility] [id number] NotePatient Education - Text [facility]04-03-2025 Note Progress Note-Physician Patient: KARINA SALGADO Age: 44 years Sex: Female : 1980 Associated Diagnoses: None Author: Zana Miller MD Preoperative Information Anesthesia Preop Info: Time patient last ate or drank 10/15/2024 00:00:00. Anesthesia history: Patient history: None. Family history+: None. Informed consent: Signed by patient. Re-evaluation prior to induction: Initial evaluation reviewed: No significant change. Review of Systems Eye Ear/Nose/Mouth/Throat Respiratory: No shortness of breath, No cough. Cardiovascular: Negative. Gastrointestinal: No heartburn. Musculoskeletal Neurologic Health Status Allergies: Allergic Reactions (Selected) No Known Allergies No Known Medication Allergies, Allergies (2) Active Severity Reaction No Known Allergies None Documented No Known Medication Allergies None Documented Current medications: (Selected) Inpatient Medications Ordered Sodium Chloride 0.9% IV Tiffanie 1000 mL 1,000 mL: 1,000 mL, IV, 150 mL/hr, Routine, Start date 259:45:00 EDT, 6.7 hour(s), Total volume (mL): 1,000 Documented Medications Documented ASA/butalbital/caffeine Cap: 1 cap(s), Oral, q6hr for pain, Refill(s) 0 Nexplanon: See Instructions, as directed, Refills(s) 0 buprenorphine 8 mg sublingual tablet: 0.25 tab, SubLingual, Bedtime, 5 days/week, Refills(s) 0 buprenorphine 8 mg sublingual tablet: 0.5tab, SubLingual, Bedtime, 2 days/week, Refills(s) 0 buprenorphine 8 mg sublingual tablet: 8 mg = 1 tab(s), SubLingual, Daily, Refills(s) 0, Home Medications (5) Active ASA/butalbital/caffeine Cap 1 cap(s), PRN, Oral, q6hr buprenorphine 8 mg sublingual tablet 8 mg = 1 tab(s), SubLingual, Daily buprenorphine 8 mg sublingual tablet 0.5tab, SubLingual, Bedtime buprenorphine 8 mg sublingual tablet 0.25 tab, SubLingual, Bedtime Nexplanon See Instructions , Medications (1) Active Scheduled: (0) Continuous: (1) Sodium Chloride 0.9% 1,000 mL 1,000 mL, IV, 150 mL/hr PRN: (0) Problem list: All Problems Acne vulgaris / SNOMED CT 699206400 / Confirmed Anemia / SNOMED CT 549206321 / Confirmed BMI 21.0-21.9, adult / SNOMED CT 7526427682 / Confirmed Buprenorphine dependence / SNOMED CT 2135664261 / Confirmed Depression / SNOMED CT 87139597 / Confirmed Eczema / SNOMED CT 56214419 / Confirmed History of alcohol abuse / SNOMED CT 1103194669 / Confirmed History of hepatitis C / SNOMED CT 4689057480 / Confirmed History of heroin abuse / SNOMED CT 7951558471 / Confirmed Insomnia / SNOMED CT 898392035 / Confirmed OCD (obsessive compulsive disorder) / SNOMED CT 502064401 / Confirmed Opioid dependence / SNOMED CT 349124716 / Confirmed Panic attack / SNOMED CT 468449057 / Confirmed Smoker / SNOMED CT 871882614 / Confirmed Added secondary to documentation in Social History. Tobacco use / SNOMED CT 867987870 / Confirmed Tobacco use / SNOMED CT 4822734350 / Confirmed Umbilical hernia / SNOMED CT 7831765230 / Confirmed, Active Problems (17) Acne vulgaris Anemia BMI 21.0-21.9, adult Buprenorphine dependence Depression Eczema History of alcohol abuse History of hepatitis C History of heroin abuse Insomnia OCD (obsessive compulsive disorder) Opioid dependence Panic attack Smoker Tobacco use Tobacco use Umbilical hernia Histories Past Medical History: No active or resolved past medical history items have been selected or recorded. Family History: Hypertension Mother Hypothyroidism Mother Procedure history: Oral surgery ([id number]). Comments: 03/16/2020 11:33 Rossi Peace LPN 1995 History of elbow surgery ([id number]). Comments: 03/16/2020 11:33 Rossi Peace LPN 2011 Myringotomy and insertion of T tube ([id number]). Comments: 03/16/2020 11:33 Rossi Peace LPN multiple times Social History Social & Psychosocial Habits Alcohol 10/13/2024 Risk Assessment: Denies Alcohol Use Comment: history of alcohol abuse. pt currently denies any alocohol use - 10/13/2024 11:38 - [facility] [place] Substance Abuse 10/13/2024 Risk Assessment: Denies Substance Abuse Comment: history of drug abuse 2014 - 10/13/2024 11:37 - Valerie Crockett RN Tobacco 10/13/2024 Tobacco Use: 10 or more cigarettes (1/ Smokeless tobacco use: Never Type: Cigarettes Tobacco use per day: 1 Started at age: 14.0 Years Smoking Cessation Yes 10/13/2024 Tobacco Use: 10 or more cigarettes (1/ Type: Cigarettes . Physical Examination Vital Signs 10/15/2024 9:57 EDT Heart Rate Monitored 76 bpm Systolic Blood Pressure 113 mmHg Diastolic Blood Pressure 80 mmHg Blood Pressure Location Left arm Mean Arterial Pressure, Monitered 91 mmHg 10/15/2024 9:57 EDT Heart Rate Monitored 69 bpm SpO2 98 % 10/15/2024 9:56 EDT Respiratory Rate 16 br/min 10/15/2024 9:56 EDT Temperature Axillary 36.5 DegC 10/15/2024 9:56 EDT Systolic Blood Pressure 115 mm (more content not included)... [facility] HospitalComment on above:Result Comment: Electronically Signed By: Paul DONG, Zana Soliman\.br\Date and Time Signed: 10/15/24 11:02 EDT 12-11-2022 NoteChart reviewed for CFD follow up. 10/23/22. Plan of Care: Needs facial CT and follow up with Dr. Smith. Summary letter and recommendations created and scheduling information sent to patient via US mail. CFD f/u prn. Beth BEDOYA RN [facility] CFD Crew Mess Attendant [phone] OfficeThe [facility], [place] [id number] Telephone encounter Note* Telephone Encounter - Beth Marsh RN - 12/11/2022 10:55 AM EDT Chart reviewed for CFD follow up. 10/23/22. Plan of Care: Needs facial CT and follow up with Dr. Smith. Summary letter and recommendations created and scheduling information sent to patient via US mail. CFD f/u prn. Beth BEDOYA RN [facility] CFD Crew Mess Attendant [phone] Office [employer] Work Phone: [phone] Miscellaneous Notes* Telephone Encounter - Beht Marsh RN - 12/11/2022 10:55 AM EDT Chart reviewed for CFD follow up. 10/23/22. Plan of Care: Needs facial CT and follow up with Dr. Smith. Summary letter and recommendations created and scheduling information sent to patient via US mail. CFD f/u prn. Beth BEDOYA RN [facility] CFD Crew Mess Attendant [phone] Office documented in this [id number] NoteOTOLARYNGOLOGY HEAD AND NECK SURGERY FOLLOW UP PATIENT NOTE CC: Re-evaluation, VPI, nasal issues, ear issues Accompanied by: Spouse HPI: Karina Salgado is a 42 year old female who presents to clinic today for evaluation in conjunction with our craniofacial team. Has previously seen Dr. Hobbs for concern for her nasal septal perforation and nasal issues. Has an ENT in [place] who manages many of her issues. Has been seen by Dr. Smith for her velopharyngeal insufficiency, possibly secondary to [...] 2016 ELBOW LEFT 2012 orthognathic surgery [address] [place], [place] Medications: Current Outpatient Medications on File [...] Audiogram and management were discussed with the social sciences research scientist. Imaging, personally reviewed by me: CT sinus 08/13/2022 reviewed. Mild thickening of the inferior portion of the maxillary sinuses bilaterally. Evidence LeFort advancement bilaterally. Large nasal septal perforation. Remainder of the sinuses are clear x6. Procedures: binocular microscopy Assessment and Plan: Karina Salgado is a 42 year old female who presents to ENT clinic today for re-evaluation. Discussion with Dr. Smith, possible surgical management of her VPI, however [...] maxillary sinuses for any persistent inflammation. Dr. Smith would like to have surgical management of her sinus disease prior to cons (more content not included)...The [employer] [id number] Telephone encounter Note* Telephone Encounter - Jose Pham LISW - 10/24/2022 12:33 PM EDT VERONICA met with patient and her boyfriend in [place] on 10/23/22. Patient lives with her mom and dad and juarez (ages 18, 13, and 2 years) in [facility]. Patient works for [employer]. Patient receives food stamps and is on Let it Wave. Patient is on subutex oil heaterman maintenance. Patient identifies her parents and boyfriend as sources of support. Patient denies any issues at this time. VERONICA contact information provided and available as needed. SANDRINE Haque Pager [phone] [phone] Miscellaneous Notes* Telephone Encounter - Jose Pham LISW - 10/24/2022 12:33 PM EDT VERONICA met with patient and her boyfriend in [place] on 10/23/22. Patient lives with her mom and dad and juarez (ages 18, 13, and 2 years) in [facility]. Patient works for [employer]. Patient receives food stamps and is on Let it Wave. Patient is on subutex snf maintenance. Patient identifies her parents and boyfriend as sources of support. Patient denies any issues at this time. contact information provided and available as needed. SANDRINE Haque Pager [phone] documented in this [id number] History of Present illness Narrative* Christin Elizondo, [facility]-DIAMOND CLEAVER - 10/23/2022 3:39 PM EDT Craniofacial Disorders Clinic: Duration: 15 mins Identification [...] large. Thick secretions noted throughout. Velum appears tooshort and stiff. Pt does not get ELECTRIC WHEELCHAIR REPAIRER closure with any speech, and gets significant bubbling with sustained /s/. ELECTRIC WHEELCHAIR REPAIRER closure is incomplete, but there is some [...] of treatment after pharyngeal flap surgery. SARA Carranza MA, CCC-DIAMOND CLEAVER Speech-Language Pathologist documented in this [id number] History of Present illness Narrative* Corinna Smith MD - 10/23/2022 1:41 PM EDT Karina Salgado [id number] 1980 Chief Complaint: speech nasality History of Present Illness: A 42 year old White female is referred by Dr. Hobbs to the Plastic Surgery Clinic for evaluation of nasal speech, patient has history of remote drug use, patient also hasseptal perforation which using plug for it, she had Lefort-I advancement surgery PMH: Past Medical History: Diagnosis Date Hep C w/o coma, chronic (HCC) 2008 PSH: Past Surgical History: Procedure Laterality Date ear tubes 2016 ELBOW LEFT 2012 orthognathic surgery [address] [place], [place] Lefort I advancement FH: No family [...] discussion of the options for treatment. Corinna Smith MD documented in this [id number] History of Present illness Narrative* Corrie Mederos MA CCC-A - 10/23/2022 1:09 PM EDT HISTORY Name: Karina Salgado : 1980 Referred by: CranioFacial Disorders Clinic Presents today for: audiologic evaluation Patient reports: Perceived change in hearing sensitivity at the right ear Otorrhea at the left ear Tinnitus at the right ear Dizziness History of otologic surgery at both ears Patient denies: Otalgia History of noise exposure Patient reports she is followed by an outside ENT in [place]. She has a history of multiple sets ofPE tubes since she was in her 20s. [...] a change is perceived. Corrie Mederos M.A., [facility]-A Online Communications Manager Degree of hearing sensitivity dB range Porras: Normal: 0-25 dB Mild: 26-40 dB Moderate: 41-55 dB Moderately Severe: 56-70 dB Severe: 71-90 dB Profound: 91+ dB Word Recognition Porras: Excellent: 100 -90% Good: 88 -78% Fair: 66 -76% Poor: 54 -64% Very Poor: < 52% documented in this [id number] History of Present illness Narrative* Jen Saavedra MD - 10/23/2022 1:00 PM EDT Images from the original note were not included. [facility] Karina Salgado, a 42 year old female, is seen today for evaluation of her craniofacial anomalies. She is referred by Dr. 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 Here today with her . Patient Active Problem List Diagnosis Date Noted H/O cocaine abuse ([facility]) 04/18/2022 Tobacco use 04/18/2022 Bipolar affective disorder, currently manic, mild ([facility]) 04/18/2022 Anemia 04/18/2022 Adjustment disorder with mixed disturbance of emotions and conduct 04/18/2022 Acne vulgaris 04/18/2022 Buprenorphine dependence ([facility]) 04/18/2022 Depressive disorder 04/18/2022 Eczema 04/18/2022 History [...] septal defect 10/24/[address] Kenyatta Young in [facility]. Nutrition consultation is not necessary. She has [...] she has been clean from drug use andactive with her subutex program. Physical Examination: Constitutional: [...] sows chronic sinusitis, septal perforation. Needs sinusitis treatment,possible pharyngeal flap, Nasal endoscopy was performed today. [...] history of tympanoplasty. ENT: Has ENT in [place] that has followed her for multiple years. Her sinuses have some inflammation. She has been taking steroids and antibiotics. Will do more imaging before she gets her surgery for her throat. She will need a tube but has an appointment with her ENT next week. Genetics: Did not see Pt today Neurodevelopmental Peds: PCP is Dr. Young. She has no issues with her heart or lungs, no prior issueswith anesthesia, beyond age for [facility]. Social Work: N/A Dentistry and Orthodontics: She has a home dentist in [facility]. SCRIBE ATTESTATION 10/23/2022, 10:20 AM. This note is prepared by Rocky Rangel acting as Scribe for Jen Saavedra MD The scribe's documentation has been prepared under my direction and personally reviewed by me in its entirety. I confirm that the note above accurately reflects all work, treatment, procedures, and medical decision making performed by me, Jen Saavedra MD . Rocky Saavedra MD, FAAP Desktop Publishing Operator of Pediatrics, [facility] phone: FAX Medicaid Legacy Number: [id number] UPIN: [id number] documented in this [id number] Telephone encounter Note* Telephone Encounter - Beth Marsh RN - 09/18/2022 12:26 PM EST Patient is unable to attend September CFD d/t work. Rescheduled: Future Appointments (next 10) Provider Department Center 10/23/2022 1:00 PM Jen Saavedra MD [facility] ENT Craniofacial Disease [facility] Directions given to ENT Clinic/ Beth BEDOYA RN [facility] OB HR Bait Man [phone] Office [phone] FAX [email or web address] [facility] Work Phone: [phone] Miscellaneous Notes* Telephone Encounter - Beth Marsh RN - 09/18/2022 12:26 PM EST Patient is unable to attend September CFD d/t work. Rescheduled: Future Appointments (next 10) Provider Department Center 10/23/2022 1:00 PM Jen Saavedra MD [facility] ENT Craniofacial Disease [facility] Directions given to ENT Clinic/ Beth BEDOYA RN [facility] OB HR Bait Man [phone] Office [phone] FAX [email or web address] documented in this [id number] Telephone encounter Note* Telephone Encounter - Beth Marsh RN - 08/15/2022 2:48 PM EST Called and spoke with patient. Agrees to schedule (tentatively ) in CFD 09/25/22 @ 2pm. Will check with work and request day off, if not will keep 09/20/[address] Smith. Patient will call me back to confirm. I provided my direct contact information. Future Appointments (next 10) Provider Department Center 09/20/2022 11:00 AM (Arrive by 10:50 AM) Corinna Smith MD [facility] Plastic Surgery [facility] 09/25/2022 2:00 PM Jen Saavedra MD [facility] ENT Craniofacial Disease [facility] Beth BEDOYA RN [facility] OB Bait Man [phone] Office [phone] FAX [email or web address] [facility] Work Phone: [phone] Miscellaneous Notes* Telephone Encounter - Beth Marsh RN - 08/15/2022 2:48 PM EST Called and spoke with patient. Agrees to schedule (tentatively ) in CFD 09/25/22 @ 2pm. Will check with work and request day off, if not will keep 09/20/[address] Smith. Patient will call me back to confirm. I provided my direct contact information. Future Appointments (next 10) Provider Department Center 09/20/2022 11:00 AM (Arrive by 10:50 AM) Corinna Smith MD [facility] Plastic Surgery [facility] 09/25/2022 2:00 PM Jen Saavedra MD [facility] ENT Craniofacial Disease [place] Beth BEDOYA RN [facility] OB HR Bait Man [phone] Office [phone] FAX [email or web address] documented in this [id number] Telephone encounter Note* Telephone Encounter - Beth Marsh RN - 07/18/2022 1:47 PM EST Patient referred to CFD by Dr. Smith. Attempted to reach patient, LM on VM with my direct number to schedule follow up. LV Dr. Smith 06/15/22. Beth BEDOYA RN [facility] Crew Mess Attendant Comprehensive Care/CFD [facility] Work Phone: [phone] Miscellaneous Notes* Telephone Encounter - Beth Marsh RN - 07/18/2022 1:47 PM EST Patient referred to CFD by Dr. Smith. Attempted to reach patient, KIM on with my direct number to schedule follow up. LV Dr. Smith 06/15/22. Beth BEDOYA RN [facility] Crew Mess Attendant Comprehensive Care/CFD documented in this [id number] Telephone encounter Note* Telephone Encounter - Beth Marsh RN - 06/18/2022 10:06 AM EST Patient referred to CFD Clinic by Dr. Smith. Patient Active Problem List: Velopharyngeal insufficiency, acquired [...] Will attempt call again. Beth BEDOYA RN [facility] Hat Body Inspector Comprehensive Care Pediatrics [phone] Office [phone] FAX [facility] [place] Work Phone: [phone] Miscellaneous Notes* Telephone Encounter - Beth Marsh RN - 06/18/2022 10:06 AM EST Patient referred to CFD Clinic by Dr. Smith. Patient Active Problem List: Velopharyngeal insufficiency, acquired [...] Will attempt call again. Beth BEDOYA RN [facility] Hat Body Inspector Comprehensive Care Pediatrics [phone] Office [phone] FAX documented in this [id number] Evaluation note* Diagnosis Velopharyngeal insufficiency, acquired- Primary Other and unspecified diseases of the oral soft tissues Body mass index (BMI) 22.0-22.9, adult documented in this encounter [id number] History of Present illness Narrative* Corinna Smith MD - 06/15/2022 5:11 PM EST Karina Salgado [id number] 1980 [id number] Plastic Surgery New Patient Visit Chief Complaint: [...] 2016 ELBOW LEFT 2011 orthognathic surgery [address] [place], [place] FH: No family history on file. [...] discussion of the options for treatment. Corinna Smith MD * Myah Wade BSN - 06/15/2022 4:24 PM EST Pt identified by name and . Patient at risk for falls:No Falls Risk protocol implemented: No Present in room for physical exam portion of visit. documented in this [id number] Lary Salgado is a 41 year old female who presents for evaluation of nasal issues. 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 She wondered as to repair. No show x1 She was considered for a prosthesis for her speech, but was not made. She had mandibulomaxillary advancement 20y prior. Her speech was improved after BMT (Dr Roebrtson in [place]). Last seen in 2016, She reports her voice was poor and she sought improvement. Her voice was very hypernasal. She had food and liquids reflux into her nose on a regular basis. She had a septal button placed per her doc in [place], but her voice remained hypernasal - would a perf repair aid her voice? She had a right TM perf repair planned for the future. Past Medical History: Diagnosis Date Hep C w/o coma, chronic (HCC) 2008 Past Surgical History: Procedure Laterality Date ear tubes 2016 ELBOW LEFT 2012 orthognathic surgery [address] [place], [place] Social History Socioeconomic History Marital status: [...] plugged tube Plan: obtain a waterpik (Grossan lead advisor) to clean her nose more aggressively - [...] effusion, left tube might need replacement/pulling too Stephani Hobbs MD cc: Dr. Zana Friedman MD, otolaryngologyThe [facility] 04-18-2022 Instructions* Patient Instructions* Stephani Hobbs MD - 04/18/2022 9:32 AM EDT [...] a baby's nose bulb-suction, or with anasal lead advisor (a Waterpik type device; about $80.00 for both the Waterpik and lead advisor, Webupo Elite Advanced Nasal Sinus Irrigation System by OneTouch on [employer]antics3; powerful flow to knock away crusts and enter sinuses). Navage is a device that uses suction to pull saline from one side, around the back, and out the other nostril. It uses proprietary salt pods, and suction rather than propelling spray. The basic package is also about $80. It can be found on [employer]3, or: https://[email or web address]/jtgz-rtdzmun-ubfnu-irrigation-p/bdl-b-nc.htm A NasoNeb (nasal nebulizer, call to order, more of a vapor machine) can deliver voluminous mist to the nose to wet tissue; it may not knock out crusts, though some patients may prefer it if a spray or suction feels too powerful. I usually advise the strongest device, an lead advisor or Navage, to knock away crusts in the nose that may develop from prior surgery, chronic infections, orautoimmune disorders. To make saline: boil 1 quart water, add 1 tablespoon of salt: pickling, jarred, or regular, and add 1 teaspoon of bicarbonate to reduce any chance of stinging. Let the solution cool before use! pharyngeal flap documented in this [id number] History of Present illness Narrative* Stephani Hobbs MD - 04/18/2022 9:30 AM EDT Images from the original note were not included. Karina Salgado is a 41 year old female who presents for evaluation of nasal issues. 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 She wondered as to repair. No show x1 She was considered for a prosthesis for her speech, but was not made. She had mandibulomaxillary advancement 20y prior. Her speech was improved after BMT (Dr Robertson in [place]). Last seen in 2015, She reports her voice was poor and she sought improvement. Her voice was very hypernasal. She had food and liquids reflux into her nose on a regular basis. She had a septal button placed per her doc in [place], but her voice remained hypernasal - would a perf repair aid her voice? She had a right TM perf repair planned for the future. Past Medical History: Diagnosis Date Hep C w/o coma, chronic (HCC) 2008 Past Surgical History: Procedure Laterality Date ear tubes 2016 ELBOW LEFT 2012 orthognathic surgery [address] [place], [place] Social History Socioeconomic History Marital status: [...] plugged tube Plan: obtain a waterpik (Grossan lead advisor) to clean her nose more aggressively - [...] effusion, left tube might need replacement/pulling too Stephani Hobbs MD cc: Dr. Zana Friedman MD, otolaryngology * Bowen Hernandez MTA - 04/18/2022 9:17 AM EDT Patient was identified by name and date of . ZAYRA Keating Patient in exam room, vital signs taken, ready for MD exam. documented in this encounterMetroHealthEvaluation + Plan note No data available for this section General Surgery [facility] Evaluation + Plan note Future Appointments Appointment Date:10/15/2024 11:45:00 AM Scheduled Provider: Location:[facility] Surgical Services Appointment Type:Surgery [facility] Evaluation note* Diagnosis Velopharyngeal insufficiency, acquired- Primary [...] documented in this encounter [facility]* Diagnosis Perforation of left tympanic membrane- Primary ETD (Eustachian tube dysfunction), bilateral documented in this encounter [facility] HealthcareEvaluation note* Diagnosis Well woman exam with routine gynecological exam Routine gynecological examination Breast cancer screening by mammogram Mass of upper outer quadrant of right breast Mass of right breast, unspecified quadrant Fibroadenosis of right breast documented in this encounter [facility] HealthcareHospital Discharge instructions No data available for this section General Surgery [facility] Progress note No data available for this section General Surgery [facility] Reason for Referral Specialty Diagnoses / Procedures Referred By Contac t Referred To Contact Radiology Diagnoses Velopharyngeal insufficiency, acquired Procedures CT SINUS W/O CONTRAST [facility] Plastic Surgery [address] [place] [address] SCAN Referral ID Status Reason Start Date Expiration Date V isits Requested Visits Authorized [id number] Pending Review 06/15/2022 06/15/2023 1 1 Specialty Diagnoses / Procedures Referred By Contac t Referred To Contact Plastic Surgery Diagnoses Nasal septal defect Velopharyngeal insufficiency, acquired H/O cocaine abuse ([facility]) Stephani Hobbs MD [address] [place], [place] [id number] Corinna Smith MD [address] [place] [address] Referral ID Status Reason Start Date Expiration Date V isits Requested Visits Authorized [id number] Authorized 04/18/2022 04/18/2023 3 3 Scheduling Instructions Please call the Plastic Surgery Office at to schedule an appointment if one was not made for you today. Summary Purpose Family History No Family History Records FoundNo Family History Records FoundNo Family History Records Found No data available for this section No data available for this section No Family History Records FoundNo Family History Records FoundNo Family History Records Found Advance Directives No Advanced Directives Records FoundNo Advanced Directives Records FoundNo Advanced Directives Records FoundNo Advanced Directives Records FoundNo Advanced Directives Records FoundNo Advanced Directives Records Found Additional Source Comments Care Team (unrecognized sect ion and content) Certified Respiratory Therapist Relationship Specialty Start Date End Date Stephani Hobbs MD [address] [place] [phone] Physician Otolaryngology 05/19/22 Certified Respiratory Therapist Relationship Specialty Start Date End Date Stephani Hobbs MD [address] [place] [phone] Physician Otolaryngology 05/19/22 Beth Marsh RN [address] [place] [phone] Bait Man Care Management 06/18/22 Certified Respiratory Therapist Relationship Specialty Start Date End Date Stephani Hobbs MD [address] [place] [address] Physician Otolaryngology 05/19/22 Beth Marsh RN [address] [place] [phone] Bait Man Care Management 06/18/22 Corinna Smith MD [address] [place] [phone] Physician Plastic Surgery 07/21/22 Certified Respiratory Therapist Relationship Specialty Start Date End Date Stephani Hobbs MD [address] [place] [phone] Physician Otolaryngology 05/19/22 Beth Marsh RN [address] [place] [phone] Bait Man Care Management 06/18/22 Corinna Smith MD [address] [place] [phone] Physician Plastic Surgery 07/21/22 Certified Respiratory Therapist Relationship Specialty Start Date End Date Duran, Stephani M., MD [address] [place] [phone] Physician Otolaryngology 05/19/22 Beth Marsh RN [address] [place] [phone] Bait Man Care Management 06/18/22 Corinna Smith MD [address] [place] [phone] Physician Plastic Surgery 07/21/22 Certified Respiratory Therapist Relationship Specialty Start Date End Date Stephani Hobbs MD [address] [place] [address] Physician Otolaryngology 05/19/22 Beth Marsh RN [address] [place] [phone] Bait Man Care Management 06/18/22 Corinna Smith MD [address] [place] [phone] Physician Plastic Surgery 07/21/22 Certified Respiratory Therapist Relationship Specialty Start Date End Date Stephani Hobbs MD [address] [place] [phone] Physician Otolaryngology 05/19/22 Beth Marsh RN [address] [place] [phone] Bait Man Care Management 06/18/22 Corinna Smith MD [address] [place] [phone] Physician Plastic Surgery 07/21/22 Certified Respiratory Therapist Relationship Specialty Start Date End Date Stephani Hobbs MD [address] [place] [address] Physician Otolaryngology 05/19/22 Beth Marsh RN [address] [place] [phone] Bait Man Care Management 06/18/22 Corinna Smith MD [address] [place] [phone] Physician Plastic Surgery 07/21/22 Certified Respiratory Therapist Relationship Specialty Start Date End Date Stephani Hobbs MD [address] [place] [phone] Physician Otolaryngology 05/19/22 Beth Marsh RN [address] [place] [id number] [facility] 06/18/22 Corinna Smith MD [address] [place] [address] Physician Plastic Surgery 07/21/22 Certified Respiratory Therapist Relationship Specialty Start Date End Date Stephani Hobbs MD [address] [place], [place] [id number] Physician Otolaryngology 05/19/22 Corinna Smith MD [address] [place] [address] Physician Plastic Surgery 07/21/22 Certified Respiratory Therapist Relationship Specialty Start Date End Date Kenyatta Young MD [address] [facility] [place] [phone] PCP - General Family Medicine 01/08/23 Hansa Gan PA [address] [place] [address] [place] [address] PCP - [facility] 04/14/24 Certified Respiratory Therapist Relationship Specialty Start Date End Date Hansa Gan PA [address] [place] [address] [place] [address] PCP - [facility] 04/14/24 Kenyatta Young MD [address] [place] [phone] PCP - General [facility] 11/17/24 Certified Respiratory Therapist Relationship Specialty Start Date End Date Hansa Gan PA [address] [place] [address] [place] [address] PCP - [facility] 04/14/24 Kenyatta Young MD [address] [place] [phone] PCP - General [facility] 11/17/24 Reason for Visit (unrecogniz ed section and content) Reason Comments New patient, to establish relationship Reason Comments New patient, to establish relationship v elopharyngeal defect Specialty Diagnoses / Procedures Referred By Contac t Referred To Contact Plastic Surgery Diagnoses Nasal septal defect Velopharyngeal insufficiency, acquired H/O cocaine abuse ([facility]) Stephani Hobbs MD [address] [place] [address] Corinna Smith MD [address] [place] [address] Referral ID Status Reason Start Date Expiration Date V isits Requested Visits Authorized [id number] Authorized 04/18/2022 04/18/2023 3 3 Reason Comments New patient, to establish relationship C Clinic Reason Comments APPOINTMENT SCHEDULING CFD Referral Specialty Diagnoses / Procedures Referred By Contac t Referred To Contact Radiology Diagnoses Velopharyngeal insufficiency, acquired Procedures CT SINUS W/O CONTRAST Corinna Smith MD [address] [place] [id number] SCAN Referral ID Status Reason Start Date Expiration Date V isits Requested Visits Authorized [id number] Closed [facility] 07/18/2022 08/17/2022 1 1 Reason Comments APPOINTMENT SCHEDULING CFD Reason Comments Care Coordination CFD Reason Comments Medical Record Review CFD F/U Reason Comments Medical Record Review CFD Reason Comments [facility] Visit INFORMATION SOURCE (unrecogn ized section and content) DATE CREATED AUTHOR 07/26/2022 [facility] DATE CREATED AUTHOR AUTHOR'S ORGANIZ ATION 12/21/2022 [employer] DATE CREATED AUTHOR AUTHOR'S ORGANIZ ATION 10/07/2024 [facility] dical [facility] DATE CREATED AUTHOR AUTHOR'S ORGANIZ ATION 10/18/2024 [facility] DATE CREATED AUTHOR AUTHOR'S ORGANIZ ATION 10/31/2024 [facility] DATE CREATED AUTHOR AUTHOR'S ORGANIZ ATION 02/14/2025 [facility] DEPARTMENT FOR RECORDS PERTAINING TO PATIENTS WHO ARE [...] BE BASED ON THE PRIMARY CLINICAL RECORDS. [facility] [employer] [facility]. provides no warranty or guarantee of the accuracy or completeness of information in this document.
[2025-02-22 10:12] LABS: Age Gdln ACOG Testing Note (.); IGP, Aptima HPV, rfx 16/18,45 Note (.)
== END 2025-02-15 20:31 | disposition home or self-care (01) ==
LOC: LAB 20:30
PROVIDERS: PCP Family Medicine; Visit Provider Physician Assistant
DX: Z01.419 Encounter for gynecological examination (general) (routine) without abnormal findings (principal)
CPT/HCPCS: 87624; 88175